=== PATIENT | male | born 1970 | race African-American/Black ===

== ENCOUNTER 2017-10-17 10:57 | Emergency (ER) | payer BC, SELFPAY ==
[2017-10-17] MEDS ORDERED: Ketorolac Tromethamine 30 MG/ML VIAL ONE (12:41)
[2017-10-17] MEDS ORDERED: Losartan 25 MG TAB PO SCH (13:00)
== END 2017-10-17 13:32 | disposition home or self-care (01) ==
LOC: ERS 10:57
DX: K02.9 Dental caries, unspecified (principal); K03.81 Cracked tooth; I10 Essential (primary) hypertension; F17.210 Nicotine dependence, cigarettes, uncomplicated
CPT/HCPCS: 96372; J1885

== ENCOUNTER 2018-06-01 09:52 | Observation (INO) | payer OTHER ==
[2018-06-01 11:57] LABS: Troponin I Less than 0.010 ng/mL (< 0.028)
[2018-06-01] MEDS ORDERED: Acetaminophen 325 MG TAB PO PRN (14:39)
[2018-06-01] MEDS ORDERED: Ondansetron PF 4 MG/2 ML Vial IVP PRN (14:39)
[2018-06-01] MEDS ORDERED: Ondansetron ODT 4 MG TAB PO PRN (14:39)
[2018-06-01 14:41] LABS: Troponin I Less than 0.010 ng/mL (< 0.028)
[2018-06-01] MEDS ORDERED: hydrALAZINE 20 MG/ML VIAL SLOW IVP PRN (14:44)
[2018-06-01] MEDS ORDERED: Nicotine 14 MG PATCH TD SCH (14:45)
[2018-06-01] MEDS ORDERED: Amlodipine 5 MG TAB PO SCH (15:00)
[2018-06-01] MEDS ORDERED: Famotidine 20 MG TAB PO SCH (21:00)
--- NOTE | 2018-06-02 06:21 | SS ---
DATE OF ADMISSION: 06/01/2018 DATE OF DISCHARGE: 06/01/2018 PRIMARY CARE PHYSICIAN: Dr. Rose at [facility]. CHIEF COMPLAINT: Chest pain, elevated blood pressure. HISTORY OF PRESENT ILLNESS: Mr. Baptiste is a pleasant 47-year-old male who has a past medical history of hypertension, he had presented to the [place] ED with some complaints of left-sided chest pain that had started earlier this morning. He had taken his blood pressure this morning and was found to be 153/111, he had taken a double dose of his morning blood pressure medication, which included losartan. At work, he had suddenly felt dizzy, lightheaded, and diaphoretic, which made him come to the [place] ED. He was then transferred to [facility] for further evaluation of his blood pressure and symptoms. It was found on arrival that his blood pressure elevated at 193/117, he was given topical nitroglycerin. It was recommended that he be worked up for his symptoms along with close monitoring and appropriate antihypertensives to lower his blood pressure to more stable level, as he was brought up to the floor for further observation, the patient insisted leaving against medical advice. Myself went into the room and spoke with him for several minutes, it was explained to him the risks of leaving against medical advice with a blood pressure that elevated. It was explained to him that this could potentially be life threatening, however, the patient was still persistent to leaving. It was recommended that the patient undergo stress test and echocardiogram, however, the patient declined services at this time. His cardiac biomarkers were found to be less than 0.010 x3, prior to leaving the floor, the patient's blood pressure was checked and it was found to be 173/116. This was also presented to the patient, however, he had declined any further treatment or workup at this time. He was provided with the AMA form which he then signed, he was provided with a prescription of Norvasc 5 mg daily and the patient proceeded to leave against medical advice. DISCHARGE DIAGNOSES: 1. Chest pain. 2. Hypertension, hypertensive urgency. CONSULTATIONS: None. PROCEDURES: None, the patient declined. DISCHARGE CONDITION: Guarded. DISPOSITION: The patient left [place] on 06/01/2018. Job ID: [id number]
[2018-06-02] MEDS ORDERED: Enoxaparin Sodium 40 MG/0.4 ML SYRINGE SC SCH (09:00)
[2018-06-02] MEDS ORDERED: Amlodipine 5 MG TAB PO SCH (09:00)
== END 2018-06-01 17:12 | disposition left against medical advice (07) ==
LOC: ERS 09:52 → 2SW 13:40
PROVIDERS: ADMIT Internal Medicine; ATTEND Internal Medicine
DX: R07.9 Chest pain, unspecified (principal); I16.0 Hypertensive urgency; I10 Essential (primary) hypertension; Z53.21 Procedure and treatment not carried out due to patient leaving prior to being seen by health care provider; Z79.899 Other long term (current) drug therapy
CPT/HCPCS: 36415; G0378

== ENCOUNTER 2018-06-04 08:43 | Emergency (ER) | payer OTHER | END 2018-06-04 09:05 | disposition home or self-care (01) | LOC: ERS 08:43 | DX: I10 Essential (primary) hypertension (principal); F17.210 Nicotine dependence, cigarettes, uncomplicated; Z79.899 Other long term (current) drug therapy | CPT/HCPCS: 99281 ==

== ENCOUNTER 2018-07-20 07:59 | Emergency (ER) | payer OTHER ==
[2018-07-20 08:50] LABS: #Basophils 0.1 thou/uL (0.0-0.2); #Eosinphils 0.3 thou/uL (0.0-0.7); #Lymphocytes 1.4 thou/uL (1.20-3.40); #Monocytes 0.5 thou/uL (0.11-0.59); #Neutrophils 2.2 thou/uL (1.40-6.50); %Basophils 1.4 % (0.0-1.0); %Eosinophils 6.7 % (0.0-10.0); %Lymphocytes 31.2 % (21.0-51.0); %Monocytes 10.5 % (0.0-10.0); %Neutrophils 50.2 % (42.0-75.0); Hemoglobin 13.5 g/dL (14.0-18.0); Mean Corpuscular HGB CONC 31.8 g/dL (32.0-36.0); Mean Corpuscular Hemoglobin 30.4 pg (27.0-31.0); Mean Corpuscular Volume 95.6 fL (78.0-98.0); Mean Platelet Volume 8.2 fL (7.4-10.4); Platelet Count 197 thou/uL (130-400); RBC Distribution Width 12.5 % (11.5-14.5); Red Blood Cell (RBC) Count 4.45 mill/uL (4.70-6.10); White Blood Cell (WBC) Count 4.4 thou/uL (4.8-10.8)
[2018-07-20 09:12] LABS: ALT (SGPT) 13 U/L (8-55); AST (SGOT) 13 U/L (5-34); Albumin 4.3 g/dL (3.5-5.0); Alkaline Phosphatase 85 U/L (40-150); Anion Gap 10 mmol/L (10-20); BUN (Urea Nitrogen) 10 mg/dL (8.9-20.6); CK (CPK) 216 U/L (30-200); Calc. Creatinine Clearance 0 mL/min (70-130); Calcium 9.3 mg/dL (7.8-10.44); Carbon Dioxide 27 mmol/L (22-29); Chloride 108 mmol/L (98-107); Estimated GFR-MDRD 68; Globulin 3.1 g/dL (2.4-3.5); Glucose 95 mg/dL (70-105); Potassium 4.6 mmol/L (3.5-5.1); Protein, Total 7.4 g/dL (6.0-8.3); Sodium 140 mmol/L (136-145)
[2018-07-20] MEDS ORDERED: Losartan 25 MG TAB PO SCH (10:00)
== END 2018-07-20 11:50 | disposition home or self-care (01) ==
LOC: ERS 07:59
DX: I10 Essential (primary) hypertension (principal); F17.210 Nicotine dependence, cigarettes, uncomplicated; Z79.899 Other long term (current) drug therapy
CPT/HCPCS: 36415; 80053; 82550; 84484; 85025; 93005; 94760

== ENCOUNTER 2018-09-06 13:31 | Day surgery (SDC) | payer OTHER ==
[2018-09-05 12:31] VITALS: BMI 28.8
[~2018-09-06 13:31] MED LIST: Lidocaine 1% PF 5 ML VIAL ONE; Ondansetron PF 4 MG/2 ML Vial ONE; PROPOFOL 200 MG/20 ML VIAL ONE; Succinylcholine Chloride 20 MG/ML 10 ml SYRINGE FS ONE; ePHEDrine 50 MG/ML VIAL ONE
[2018-09-06] MEDS ORDERED: Oxymetazoline HCl 0.05% ( 15 ML ) ONE (14:06)
[2018-09-06] MEDS ORDERED: Labetalol HCl 100 MG/20 ML VIAL ONE (14:13)
[2018-09-06] MEDS ORDERED: Bacitracin Zinc Ointment 30 gm TUBE ONE (14:41)
[2018-09-06] MEDS ORDERED: Lidocaine 1% w/Epinephrine 1:100K 20 ML VIAL ONE (14:41)
[2018-09-06] MEDS ORDERED: Oxymetazoline HCl 0.05% (30 ML BOT) ONE (14:42)
[2018-09-06] MEDS ORDERED: Fentanyl 100 MCG/2 ML VIAL ONE ×3 (15:04→17:11)
[2018-09-06] MEDS ORDERED: methylPREDNISolone Sod Succ 40 MG VIAL ONE (15:06)
--- NOTE | 2018-09-06 15:58 | EKG ---
Test Reason : PREOP Blood Pressure : / mmHG Vent. Rate : 057 BPM Atrial Rate : 057 BPM P-R Int : 154 ms QRS Dur : 090 ms QT Int : 396 ms P-R-T Axes : 070 -35 026 degrees QTc Int : 385 ms Sinus bradycardia Left axis deviation Nonspecific T wave abnormality Abnormal ECG Confirmed by ROXANA WALLACE ([id number]) on 09/06/2018 3:57:49 PM Referred By: JAYDEN Confirmed By:ROXANA WALLACE
[2018-09-06] MEDS ORDERED: hydrALAZINE 20 MG/ML VIAL ONE (16:47)
[2018-09-06] MEDS ORDERED: HYDROcodone/Acetaminophen 5/325 mg Tablet ONE (17:58)
--- NOTE | 2018-09-07 13:03 | OP ---
DATE OF PROCEDURE: 09/06/2018 PREOPERATIVE DIAGNOSES: 1. Profound septal deformity. 2. Left septal spur. 3. Hypertrophic inferior turbinates. POSTOPERATIVE DIAGNOSES: 1. Profound septal deformity. 2. Left septal spur. 3. Hypertrophic inferior turbinates. PROCEDURES PERFORMED: 1. Septoplasty. 2. Bilateral nasal endoscopy with submucosal resection of inferior turbinates. DESCRIPTION OF PROCEDURE: SEPTOPLASTY: After local anesthesia was infiltrated into the submucoperichondrial plane, a standard [place] incision was made with a #15 blade down to the level of the septal cartilage. The caudal elevator was used to elevate the mucoperichondrium from the underlying cartilage. We then proceeded beyond the bony cartilaginous junction and elevated the bony periosteum as well. Great attention was paid to the spur to prevent rent formation in the septal flap. A transcartilaginous incision was then made, while preserving an adequate dorsal and caudal cartilaginous strut for tip support. The deformed cartilage was removed and disarticulated from the bony cartilaginous junction and maxillary crest. This was placed in saline and would later be crushed and returned to the mucoperichondrial envelope. We then elevated the contralateral periosteum from the bony cartilaginous region and removed the deformed portions of the bone and bony spurs. The cartilage was then crushed and placed back into the mucoperichondrial envelope and the mucosa was re-approximated with a quilting stitch composed of rapidly absorbent gut suture. The [place] incision was also closed with interrupted gut suture. At the completion of the case, Govea splints were placed and suture secured to the caudal septum. BILATERAL NASAL ENDOSCOPY WITH SUBMUCOSAL RESECTION OF INFERIOR TURBINATES: After consent was obtained, the patient was identified, brought to the operating room, and placed on the operating room table in the supine position. Consent was obtained, notifying the patient of the possibility of additional infections, bleeding, brain injury, and eye/orbital injury. The patient was placed on the operating room table, and general endotracheal anesthesia and intravenous access was obtained. The patient was then positioned, prepped and draped for endoscopic sinus surgery. Nasal preparation included trimming nasal vestibular hairs and spraying in topical Afrin. We then placed Afrin topical solution on nasal pledgets and strategically located them intranasally. The perinasal mucosa was injected with 1% lidocaine with 1:100,000 epinephrine in the submucoperichondrial plane of the septum, lateral nasal wall, and anterior to the uncinate. The patient was then prepped and draped in a sterile fashion and positioned for endoscopic sinus surgery. With the 0-degree endoscope, the patient underwent systematic nasal endoscopy. There were no suspicious internasal masses or lesions identified. We then focused our attention to the osteomeatal complex region under the middle turbinate. The inferior turbinates were visualized with a 0 degree endoscope and outfractured with a Jen elevator. The inferior medial aspect was cauterized with the electrocautery. Hemostasis was obtained . After adequate airway was established, we turned our attention to the contralateral side and used a similar procedure. Again, a Jen elevator was used to outfracture inferior turbinates under endoscopic visualization. With a suction cautery, the free inferior medial aspect was cauterized under direct visualization along the length of the inferior turbinate. At this point, we then turned our attention to the contralateral side and proceeded with endoscopic sinus surgery. At the completion of the case, Rice keel splints were placed in the ethmoid cavities after the ethmoidectomy. There were no complications. The patient tolerated the procedure well and was discharged to the recovery room in stable condition prior to return to the preoperative day stay with ultimate discharge home. Prescriptions for pain medication and antibiotics were provided. The patient received intramuscular Depo-Medrol during the case. Job ID: [id number]
== END 2018-09-06 18:44 | disposition home or self-care (01) ==
LOC: SDC 13:31
PROVIDERS: ATTEND Specialist
PROC: 09SM0ZZ Reposition Nasal Septum, Open Approach (ICD-10-PCS; principal; 2018-09-06)
PROC: 09SL8ZZ Reposition Nasal Turbinate, Via Natural or Artificial Opening Endoscopic (ICD-10-PCS; principal; 2018-09-06)
DX: J34.2 Deviated nasal septum (principal); J34.3 Hypertrophy of nasal turbinates; J34.89 Other specified disorders of nose and nasal sinuses; I10 Essential (primary) hypertension; F17.200 Nicotine dependence, unspecified, uncomplicated; Z87.81 Personal history of (healed) traumatic fracture; Z79.899 Other long term (current) drug therapy; Z88.8 Allergy status to other drugs, medicaments and biological substances
CPT/HCPCS: 93005; 93010; J0360; J2001; J2405; J2704; J2920; J3010; J3490

== ENCOUNTER 2018-11-15 08:57 | Day surgery (SDC) | payer OTHER ==
[2018-11-14 09:33] VITALS: BMI 25.9
[2018-11-15] MEDS ORDERED: Famotidine/PF 20 mg/2ml Vial ONE (10:37)
[2018-11-15] MEDS ORDERED: Fentanyl 100 MCG/2 ML VIAL ONE ×2 (10:37→11:34)
[2018-11-15] MEDS ORDERED: Ferric Subsulfate 8 ML BOT ONE (11:10)
[2018-11-15] MEDS ORDERED: Metoprolol Tartrate 5 MG/5 ML VIAL ONE (11:34)
[2018-11-15] MEDS ORDERED: HYDROmorphone 2 MG/ML VIAL ONE (11:57)
[2018-11-15] MEDS ORDERED: Morphine 2 MG/ML SYRINGE ONE (13:24)
--- NOTE | 2018-11-15 15:15 | OP ---
DATE OF PROCEDURE: 11/15/2018 PREOPERATIVE DIAGNOSES: Obstructive tonsillar hypertrophy, obstructive uvular hypertrophy. POSTOPERATIVE DIAGNOSES: Obstructive tonsillar hypertrophy, obstructive uvular hypertrophy. PROCEDURE PERFORMED: Tonsillectomy over 12 and uvulectomy. DESCRIPTION OF PROCEDURE: After consent was obtained, the patient was identified, brought to the operating room, and placed on the operating table in the supine position. General endotracheal anesthesia and intravenous access was obtained and we proceeded with positioning the patient for oropharyngeal surgery. Oropharyngeal exposure was obtained with a Maricarmen-Milton mouth gag after a head drape was placed and secured with a towel clip. The Maricarmen-Milton mouth gag was then suspended from the Hunter tray and palatal elevation was achieved with a red rubber catheter. The right tonsil was addressed first. We used a curved Allis to grasp the tonsil and retract it medially as an anterior pillar incision was made with a #12 blade. The retrotonsillar fascial plane was then established and blunt dissection was performed with the suction cautery. Blood vessels were anticipated, identified, and cauterized as they were encountered. Ultimately, dissection was carried to the posterior tonsillar pillar mucosa which was incised hemostatically, as well as the base of tongue connection. The tonsil was then passed off as a specimen and bleeding points within the tonsillar bed were cauterized under direct visualization. We subsequently turned our attention to the contralateral side, where using a similar technique, a near identical procedure was performed. Again, the tonsil was grasped and retracted medially with a curved Allis as an anterior pillar incision was made with a #12 blade. The retrotonsillar fascial plane was established and while the anterior pillar was retracted medially, the hemostatic blunt dissection of the tonsil with a suction cautery was performed with blood vessels anticipated, identified, and cauterized as they were encountered. Again, dissection continued to the base of tongue and posterior tonsillar pillar mucosa which was incised in a hemostatic fashion. The tonsillar beds were then carefully inspected and bleeding points were identified and cauterized with a suction cautery. After this portion of the procedure, hemostasis was completely obtained. The patient's oral cavity was copiously irrigated with iced saline and subsequently suctioned. We then used the red rubber catheter to suction the gastric contents and the patient was subsequently aroused, awakened, and extubated without difficulty and transported to the recovery room in stable condition. There were no complications. Then, following the tonsils being removed, vertical incisions were made into the soft palate on either side of the uvula and the crescentic portion of palatal and pharyngeal mucosa and associated muscle was removed. We then transected the uvula at its midpoint and reapproximated the mucosa with absorbable suture. The patient was awakened and taken to recovery room in stable condition. Job ID: [id number]
[2018-11-15] MEDS ORDERED: Dexamethasone 20 MG/5 ML VIAL ONE (17:14)
[2018-11-15] MEDS ORDERED: Ondansetron PF 4 MG/2 ML Vial ONE (17:14)
[2018-11-15] MEDS ORDERED: Succinylcholine Chloride 20 MG/ML 10 ml SYRINGE FS ONE (17:14)
[2018-11-15] MEDS ORDERED: PROPOFOL 200 MG/20 ML VIAL ONE (17:14)
[2018-11-15] MEDS ORDERED: Lidocaine 1% PF 5 ML VIAL ONE (17:14)
--- NOTE | 2018-11-16 07:02 | EKG ---
Test Reason : PREOP Blood Pressure : / mmHG Vent. Rate : 079 BPM Atrial Rate : 079 BPM P-R Int : 142 ms QRS Dur : 080 ms QT Int : 374 ms P-R-T Axes : 079 -42 052 degrees QTc Int : 428 ms Normal sinus rhythm with sinus arrhythmia Left axis deviation Abnormal ECG When compared with ECG of 06-SEP-2018 14:45, Nonspecific T wave abnormality no longer evident in Lateral leads Confirmed by DR. Erica BLACKMON ([id number]) on 11/16/2018 7:02:13 AM Referred By: JAYDEN Confirmed By:DR. Erica BLACKMON
== END 2018-11-15 14:35 | disposition home or self-care (01) ==
LOC: SDC 08:57
PROVIDERS: ATTEND Specialist
PROC: 0CTNXZZ Resection of Uvula, External Approach (ICD-10-PCS; principal; 2018-11-15)
PROC: 0CTPXZZ Resection of Tonsils, External Approach (ICD-10-PCS; principal; 2018-11-15)
DX: J35.1 Hypertrophy of tonsils (principal); K13.79 Other lesions of oral mucosa; R06.81 Apnea, not elsewhere classified
CPT/HCPCS: 88304; 93005; 93010; J0131; J1100; J1170; J2001; J2270; J2405; J2704; J3010; S0028

== ENCOUNTER 2019-02-26 22:18 | Emergency (ER) | payer OTHER, SELFPAY ==
[~2019-02-26 22:18] MED LIST changes: +Iopamidol 370 76% 100 ML VIAL ONE; -Lidocaine 1% PF 5 ML VIAL ONE; -Ondansetron PF 4 MG/2 ML Vial ONE; -PROPOFOL 200 MG/20 ML VIAL ONE; -Succinylcholine Chloride 20 MG/ML 10 ml SYRINGE FS ONE; -ePHEDrine 50 MG/ML VIAL ONE
[2019-02-26 22:53] LABS: #Eosinphils 0.2 thou/uL (0.0-0.7); #Lymphocytes 1.3 thou/uL (1.20-3.40); #Monocytes 0.5 thou/uL (0.11-0.59); %Basophils 0.1 % (0.0-1.0); %Eosinophils 2.2 % (0.0-10.0); %Lymphocytes 11.6 % (21.0-51.0); %Monocytes 4.9 % (0.0-10.0); %Neutrophils 81.3 % (42.0-75.0); Hemoglobin 12.7 g/dL (14.0-18.0); Mean Corpuscular HGB CONC 34.2 g/dL (32.0-36.0); Mean Corpuscular Hemoglobin 32.5 pg (27.0-31.0); Mean Corpuscular Volume 95.2 fL (78.0-98.0); Mean Platelet Volume 9.4 fL (7.4-10.4); Platelet Count 377 thou/uL (130-400); RBC Distribution Width 14.9 % (11.5-14.5); Red Blood Cell (RBC) Count 3.92 mill/uL (4.70-6.10); White Blood Cell (WBC) Count 11.1 thou/uL (4.8-10.8)
[2019-02-26] MEDS ORDERED: Morphine 4 MG/ML VIAL ONE (23:04)
[2019-02-26] MEDS ORDERED: Ketorolac Tromethamine 30 MG/ML VIAL ONE (23:04)
--- NOTE | 2019-02-26 23:34 | CT ---
CT Abdomen Pelvis Trauma History: Trauma. Abdominal pain. Comparison: CT abdomen and pelvis February 21, 2019 Findings: Small pleural effusions. Mild bibasilar atelectasis. Small volume pneumomediastinum. There is small volume pneumoperitoneum as well as subcutaneous emphysema along the superficial soft tissues. Drainage catheter is in place along the antimesenteric side sigmoid colon with much improved abscess without significant fluid remaining. Continues to be fat stranding around the sigmoid colon. Similar bilateral small nonobstructive renal calculi. Evaluation for solid organ injury is limited du e to the recent postoperative findings. Hypodensity interpolar left kidney suggestive of a cyst. Aortic contour is nonaneurysmal. Osseous pelvis is intact. No fracture of the lumbar spine or sacrum. No acute solid organ injury of the abdomen. Impression: 1. Recent postoperative findings with interval drain placement on the antimesenteric side of the colo n with resolved abscess. 2. No definite evidence of acute traumatic abnormality of the abdomen and pelvis although evaluation is limited due to the recent postoperative findings.
[2019-02-27 00:15] LABS: Chloride 105 mmol/L (98-107); Potassium 3.9 mmol/L (3.5-5.1); Sodium 140 mmol/L (136-145)
[2019-02-27 00:16] LABS: Calcium 8.7 mg/dL (7.8-10.44); Glucose 100 mg/dL (70-105)
[2019-02-27 00:17] LABS: Globulin 3.1 g/dL (2.4-3.5); Protein, Total 6.1 g/dL (6.0-8.3)
[2019-02-27 00:18] LABS: Anion Gap 14 mmol/L (10-20); Bilirubin, Total 0.3 mg/dL (0.2-1.2); Carbon Dioxide 25 mmol/L (22-29)
[2019-02-27 00:19] LABS: Alkaline Phosphatase 61 U/L (40-150)
[2019-02-27 00:20] LABS: Calc. Creatinine Clearance 0 mL/min (70-130); Estimated GFR-MDRD 69
[2019-02-27 00:21] LABS: BUN (Urea Nitrogen) 6 mg/dL (8.9-20.6)
[2019-02-27 00:22] LABS: ALT (SGPT) 11 U/L (8-55); AST (SGOT) 14 U/L (5-34)
== END 2019-02-27 00:26 | disposition home or self-care (01) ==
LOC: ERS 22:18
DX: S30.1XXA Contusion of abdominal wall, initial encounter (principal); I10 Essential (primary) hypertension; F32.9 Major depressive disorder, single episode, unspecified; F17.210 Nicotine dependence, cigarettes, uncomplicated; Z79.899 Other long term (current) drug therapy; Z98.890 Other specified postprocedural states; V89.2XXA Person injured in unspecified motor-vehicle accident, traffic, initial encounter
CPT/HCPCS: 36415; 74177; 80053; 85025; 96361; 96374; 96375; J1885; J2270; Q9967

== ENCOUNTER 2019-03-03 19:41 | Observation (INO) | payer SELFPAY ==
[2019-03-03] MEDS ORDERED: Fentanyl 100 MCG/2 ML VIAL ONE (20:50)
[2019-03-03] MEDS ORDERED: Labetalol HCl 100 MG/20 ML VIAL ONE (22:02)
[2019-03-03] MEDS ORDERED: Ondansetron ODT 4 MG TAB PO PRN (22:44)
[2019-03-03] MEDS ORDERED: Morphine 4 MG/ML VIAL SLOW IVP PRN (22:44)
[2019-03-03] MEDS ORDERED: Ondansetron PF 4 MG/2 ML Vial IVP PRN (22:44)
[2019-03-03] MEDS ORDERED: Ketorolac Tromethamine 30 MG/ML VIAL IVP PRN (22:46)
[2019-03-03] MEDS ORDERED: Acetaminophen 1,000 MG in Premix Bag 1 BAG IVPB PRN (22:46)
[2019-03-03] MEDS ORDERED: Ketorolac Tromethamine 30 MG/ML VIAL IVP SCH (23:00)
[2019-03-03] MEDS ORDERED: Acetaminophen 1,000 MG in Premix Bag 1 BAG IVPB SCH (23:00)
[2019-03-04 00:16] VITALS: BMI 23.6
[2019-03-04] MEDS: Acetaminophen 1,000 MG in Premix Bag 1 BAG IVPB SCH ×5 (01:11→23:25)
[2019-03-04] MEDS: D5 1/2 NS w/20 mEq KCL 1,000 ML IV SCH ×4 (01:12→23:24)
[2019-03-04] MEDS: hydrALAZINE 20 MG/ML VIAL SLOW IVP PRN ×2 (01:53→16:27)
[2019-03-04] MEDS: Piperacillin/Tazobactam 4.5 GM in Sodium Chloride 0.9% 100 ML IVPB SCH ×5 (01:54→23:25)
[2019-03-04] MEDS: Morphine 2 MG/ML SYRINGE SLOW IVP PRN ×2 (02:02→10:41)
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
[2019-03-04 04:46] LABS: #Eosinphils 0.1 thou/uL (0.0-0.7); #Lymphocytes 1.5 thou/uL (1.20-3.40); #Monocytes 0.6 thou/uL (0.11-0.59); #Neutrophils 5.7 thou/uL (1.40-6.50); %Basophils 0.1 % (0.0-1.0); %Eosinophils 0.7 % (0.0-10.0); %Lymphocytes 19.2 % (21.0-51.0); %Monocytes 7.8 % (0.0-10.0); %Neutrophils 72.1 % (42.0-75.0); Hemoglobin 11.8 g/dL (14.0-18.0); Mean Corpuscular Hemoglobin 31.6 pg (27.0-31.0); Mean Corpuscular Volume 95.7 fL (78.0-98.0); Mean Platelet Volume 7.3 fL (7.4-10.4); Platelet Count 390 thou/uL (130-400); RBC Distribution Width 13.3 % (11.5-14.5); Red Blood Cell (RBC) Count 3.75 mill/uL (4.70-6.10); White Blood Cell (WBC) Count 7.9 thou/uL (4.8-10.8)
[2019-03-04 04:55] LABS: ALT (SGPT) 16 U/L (8-55); AST (SGOT) 10 U/L (5-34); Albumin 3.4 g/dL (3.5-5.0); Alkaline Phosphatase 60 U/L (40-150); Anion Gap 12 mmol/L (10-20); BUN (Urea Nitrogen) 9 mg/dL (8.9-20.6); Bilirubin, Total 0.4 mg/dL (0.2-1.2); Calc. Creatinine Clearance 78 mL/min (70-130); Calcium 8.8 mg/dL (7.8-10.44); Carbon Dioxide 24 mmol/L (22-29); Chloride 106 mmol/L (98-107); Estimated GFR-MDRD 86; Glucose 120 mg/dL (70-105); Protein, Total 6.4 g/dL (6.0-8.3); Sodium 139 mmol/L (136-145)
[2019-03-04 05:11] LABS: Potassium 2.8 mmol/L (3.5-5.1)
[2019-03-04] MEDS ORDERED: Potassium Chloride 20 MEQ TAB PO SCH (05:45)
[2019-03-04] MEDS: Carvedilol 6.25 MG TAB PO SCH ×2 (06:16→20:25)
[2019-03-04] MEDS: Famotidine/PF 20 mg/2ml Vial SLOW IVP SCH ×2 (07:36→20:25)
--- NOTE | 2019-03-04 15:01 | PRG ---
DATE OF SERVICE: 03/04/2019 SUBJECTIVE: Devon Baptiste is doing well today. He does not have a fever. His white count is normal at 7.9. It was normal on admission. His hemoglobin is 11.8. He feels somewhat better. He is walking the hallways with a walking program. OBJECTIVE: LUNGS: Clear to auscultation. CARDIAC: Regular rate and rhythm. No murmur or gallop. ABDOMEN: Soft, mild tenderness in the left lower quadrant, much improved relative to yesterday. Mild guarding. Remainder of abdomen is soft and nondistended. EXTREMITIES: Unremarkable. ASSESSMENT/PLAN: Persistent diverticulitis after removal of a drain. He was on oral antibiotics, Augmentin, and metronidazole at home. He is on Zosyn today. We will advance him to clear liquids. Dr. Regalado will assume his care tomorrow. Job ID: [id number]
[2019-03-04 19:07] LABS: Anion Gap 13 mmol/L (10-20); BUN (Urea Nitrogen) 6 mg/dL (8.9-20.6); Calc. Creatinine Clearance 73 mL/min (70-130); Calcium 9.2 mg/dL (7.8-10.44); Carbon Dioxide 25 mmol/L (22-29); Chloride 106 mmol/L (98-107); Estimated GFR-MDRD 80; Glucose 81 mg/dL (70-105); Sodium 140 mmol/L (136-145)
[2019-03-04] MEDS: Enoxaparin Sodium 40 MG/0.4 ML SYRINGE SC SCH (20:26)
[2019-03-05] MEDS: Piperacillin/Tazobactam 4.5 GM in Sodium Chloride 0.9% 100 ML IVPB SCH ×4 (05:14→23:13)
[2019-03-05] MEDS: Carvedilol 6.25 MG TAB PO SCH ×2 (08:23→20:18)
[2019-03-05] MEDS: Famotidine/PF 20 mg/2ml Vial SLOW IVP SCH ×2 (08:25→20:18)
[2019-03-05] MEDS: D5 1/2 NS w/20 mEq KCL 1,000 ML IV SCH ×3 (08:27→18:17)
[2019-03-05 08:49] LABS: Anion Gap 10 mmol/L (10-20); BUN (Urea Nitrogen) 4 mg/dL (8.9-20.6); Calc. Creatinine Clearance 71 mL/min (70-130); Calcium 8.9 mg/dL (7.8-10.44); Carbon Dioxide 24 mmol/L (22-29); Chloride 108 mmol/L (98-107); Estimated GFR-MDRD 78; Glucose 111 mg/dL (70-105); Potassium 3.9 mmol/L (3.5-5.1); Sodium 138 mmol/L (136-145)
--- NOTE | 2019-03-05 15:31 | PDOC.GSPN ---
Surgery Progress Note: Subj - Subjective Narrative: Patient feels good today. He is tolerating his full liquid diet. He is passing gas and has had several bowel movements. No nausea or vomiting. No pain at rest , although he is still a little sore when I press on his abdomen. He does not exhibit any rigidity rebound or guarding. The tenderness is less than during his last admission. He is afebrile with normal vital signs. I questioned him specifically about the antibiotics he was taking at home, since I received a phone call from his pharmacy on Monday asking for clarification on the prescription I given him at the time of his discharge. He states that he didn't have money to fill his discharge when he went home, so he was taking some amoxicillin that he had left over thinking it was the same thing as the Augmentin. He didn't actually fill the Augmentin and Flagyl until Monday. Assessment/plan: Diverticulitis with recrudescence of symptoms, likely due to interruption of antibiotic therapy rather than true treatment failure. I'm going to continue the IV antibiotics overnight and repeat the CT scan with IV and oral contrast tomorrow. If this shows improvement, he will likely be discharged home on Augmentin and Flagyl, which cover the bacteria grown from his intraoperative culture.. Surgery Progress Note: Obj - Vital signs Vital signs: Vital Signs - Most Recent Temp Pulse Resp BP Pulse Ox 97.5 F L 67 20 167/111 H 98 03/05/19 11:43 03/05/19 11:43 03/05/19 11:43 03/05/19 11:43 03/05/19 11:43 Surgery Progress Note: Results - Labs Result Diagrams: 03/04/19 04:12 03/05/19 08:16 Lab results: Laboratory Results - last 24 hr 03/05/19 08:16 Sodium 138 Potassium 3.9 Chloride 108 H Carbon Dioxide 24 Anion Gap 10 BUN 4 L Creatinine 1.20 Estimated GFR (MDRD) 78 Glucose 111 H Calcium 8.9
[2019-03-05] MEDS: Enoxaparin Sodium 40 MG/0.4 ML SYRINGE SC SCH (20:18)
[2019-03-05] MEDS: Morphine 2 MG/ML SYRINGE SLOW IVP PRN ×2 (20:24→22:06)
[2019-03-06] MEDS: D5 1/2 NS w/20 mEq KCL 1,000 ML IV SCH ×2 (01:39→11:55)
[2019-03-06] MEDS: Piperacillin/Tazobactam 4.5 GM in Sodium Chloride 0.9% 100 ML IVPB SCH ×2 (05:04→11:54)
[2019-03-06 05:41] LABS: #Eosinphils 0.1 thou/uL (0.0-0.7); #Lymphocytes 1.6 thou/uL (1.20-3.40); #Monocytes 0.5 thou/uL (0.11-0.59); #Neutrophils 3.6 thou/uL (1.40-6.50); %Basophils 0.6 % (0.0-1.0); %Eosinophils 1.6 % (0.0-10.0); %Lymphocytes 27.4 % (21.0-51.0); %Monocytes 9.1 % (0.0-10.0); %Neutrophils 61.2 % (42.0-75.0); Hemoglobin 10.7 g/dL (14.0-18.0); Mean Corpuscular HGB CONC 32.7 g/dL (32.0-36.0); Mean Corpuscular Hemoglobin 31.5 pg (27.0-31.0); Mean Corpuscular Volume 96.3 fL (78.0-98.0); Mean Platelet Volume 7.5 fL (7.4-10.4); Platelet Count 354 thou/uL (130-400); RBC Distribution Width 13.2 % (11.5-14.5); White Blood Cell (WBC) Count 5.9 thou/uL (4.8-10.8)
[2019-03-06 05:58] LABS: ALT (SGPT) 9 U/L (8-55); AST (SGOT) 7 U/L (5-34); Albumin 2.9 g/dL (3.5-5.0); Alkaline Phosphatase 49 U/L (40-150); Anion Gap 10 mmol/L (10-20); BUN (Urea Nitrogen) 4 mg/dL (8.9-20.6); Bilirubin, Total 0.2 mg/dL (0.2-1.2); Calc. Creatinine Clearance 74 mL/min (70-130); Calcium 8.3 mg/dL (7.8-10.44); Carbon Dioxide 22 mmol/L (22-29); Chloride 111 mmol/L (98-107); Estimated GFR-MDRD 81; Globulin 2.6 g/dL (2.4-3.5); Glucose 105 mg/dL (70-105); Potassium 3.6 mmol/L (3.5-5.1); Protein, Total 5.5 g/dL (6.0-8.3); Sodium 139 mmol/L (136-145)
[2019-03-06] MEDS: Famotidine/PF 20 mg/2ml Vial SLOW IVP SCH (07:53)
[2019-03-06] MEDS: Carvedilol 6.25 MG TAB PO SCH (07:53)
[2019-03-06] MEDS: Morphine 2 MG/ML SYRINGE SLOW IVP PRN (07:59)
--- NOTE | 2019-03-06 11:34 | CT ---
CT Abdomen Pelvis W Con: 03/06/2019 9:00 AM CLINICAL INFORMATION: Diverticular abscess status post drainage COMPARISON: 03/03/2019 TECHNIQUE: Multiple contiguous axial images were obtained and a CT of the abdomen and pelvis with IV contrast. Oral contrast was administered. Coronal reformats were performed. FINDINGS: Lower Chest: Bibasilar atelectasis Abdomen: Liver: within normal limits. Bile Ducts: Normal caliber. Gallbladder: No calcified gallstones. Normal caliber wall. Pancreas: within normal limits. Spleen: within normal limits. Adrenals: within normal limits. Kidneys: Bilateral punctate nonobstructing renal calcifications Pelvis: Reproductive Organs: No pelvic masses. Ureters: within normal limits. Bladder: within normal limits. Peritoneum: The previously seen fluid collection in the lower abdomen/pelvis is much smaller in size and the exam from 3 days ago currently measuring 2.0 x 2.1 x 1.8 cm in size. This fluid collection is not filled with the enteric contrast but likely communicates with a diverticulum visualized emanat ing from the anterior aspect of the sigmoid colon. Bowel: Normal caliber. Mesentery and Retroperitoneum: No enlarged mesenteric or retroperitoneal lymph nodes. Vessels: Normal. Abdominal Wall: within normal limits. Bones: Within normal limits IMPRESSION: Small fluid collection in the lower abdomen likely represents a small contained diverticular abscess. This likely communicates with the sigmoid colon given the significant decrease in size over 3 days.
[2019-03-06 11:35] VITALS: TEMP 98.6
[2019-03-06] MEDS: hydrALAZINE 20 MG/ML VIAL SLOW IVP PRN (11:58)
[2019-03-06 15:13] VITALS: BP 162/105
== END 2019-03-06 14:51 | disposition home or self-care (01) ==
LOC: ERS 19:41 → SJJU 21:15
PROVIDERS: ADMIT Specialist; ATTEND Specialist
DX: K57.20 Diverticulitis of large intestine with perforation and abscess without bleeding (principal); I10 Essential (primary) hypertension; F17.210 Nicotine dependence, cigarettes, uncomplicated; F32.9 Major depressive disorder, single episode, unspecified; Z79.2 Long term (current) use of antibiotics; Z79.899 Other long term (current) drug therapy; Z88.8 Allergy status to other drugs, medicaments and biological substances; Z98.890 Other specified postprocedural states
CPT/HCPCS: 36415; 36416; 74177; 80048; 80053; 85025; 96361; 96365; 96366; 96372; 96374; 96375; 96376; G0378; J0131; J0360; J1650; J1885; J2270; J2543; J3010; J3490; S0028

== ENCOUNTER 2019-03-19 17:06 | Inpatient (IN) | payer SELFPAY ==
[~2019-03-19 17:06] MED LIST changes: +ISOVUE-370 76%-LOCM 1 ML ONE; -Iopamidol 370 76% 100 ML VIAL ONE
[2019-03-19] MEDS ORDERED: Morphine 2 MG/ML SYRINGE SLOW IVP PRN (17:38)
[2019-03-19 17:39] VITALS: BMI 24.9
[2019-03-19] MEDS ORDERED: Pantoprazole 40 MG VIAL IVP SCH (17:45)
[2019-03-19] MEDS ORDERED: Acetaminophen 1,000 MG in Premix Bag 1 BAG IVPB SCH (18:00)
[2019-03-19] MEDS: D5 1/2 NS w/20 mEq KCL 1,000 ML IV SCH (18:40)
[2019-03-19] MEDS: Piperacillin/Tazobactam 3.375 GM in Sodium Chloride 0.9% 100 ML IVPB SCH (18:44)
[2019-03-19 19:01] LABS: #Eosinphils 0.3 thou/uL (0.0-0.7); #Lymphocytes 1.7 thou/uL (1.20-3.40); #Monocytes 0.5 thou/uL (0.11-0.59); #Neutrophils 4.3 thou/uL (1.40-6.50); %Basophils 0.5 % (0.0-1.0); %Eosinophils 4.1 % (0.0-10.0); %Lymphocytes 25.1 % (21.0-51.0); %Neutrophils 63.4 % (42.0-75.0); Hemoglobin 11.6 g/dL (14.0-18.0); Mean Corpuscular HGB CONC 32.7 g/dL (32.0-36.0); Mean Corpuscular Hemoglobin 31.6 pg (27.0-31.0); Mean Corpuscular Volume 96.5 fL (78.0-98.0); Mean Platelet Volume 7.9 fL (7.4-10.4); Platelet Count 252 thou/uL (130-400); Red Blood Cell (RBC) Count 3.67 mill/uL (4.70-6.10); White Blood Cell (WBC) Count 6.7 thou/uL (4.8-10.8)
[2019-03-19 19:22] LABS: ALT (SGPT) 8 U/L (8-55); AST (SGOT) 10 U/L (5-34); Alkaline Phosphatase 69 U/L (40-150); Anion Gap 13 mmol/L (10-20); BUN (Urea Nitrogen) 12 mg/dL (8.9-20.6); Bilirubin, Total 0.5 mg/dL (0.2-1.2); Calc. Creatinine Clearance 63 mL/min (70-130); Calcium 9.2 mg/dL (7.8-10.44); Carbon Dioxide 23 mmol/L (22-29); Chloride 105 mmol/L (98-107); Estimated GFR-MDRD 63; Globulin 3.2 g/dL (2.4-3.5); Glucose 106 mg/dL (70-105); Potassium 3.4 mmol/L (3.5-5.1); Protein, Total 7.2 g/dL (6.0-8.3); Sodium 138 mmol/L (136-145)
--- NOTE | 2019-03-19 20:30 | CT ---
CT Abdomen Pelvis W Con: 03/19/2019 5:39 PM CLINICAL INFORMATION: Abscess in the colon. History of diverticulitis COMPARISON: 03/06/2019 TECHNIQUE: Multiple contiguous axial images were obtained and a CT of the abdomen and pelvis with IV contrast. Oral contrast was administered. Coronal and sagittal reformats were performed. FINDINGS: Lower Chest: within normal limits. Abdomen: Liver: within normal limits. Bile Ducts: Normal caliber. Gallbladder: No calcified gallstones. Normal caliber wall. Pancreas: within normal limits. Spleen: within normal limits. Adrenals: within normal limits. Kidneys: Punctate 1 to 2 mm bilateral nonobstructing renal calcifications. Pelvis: Reproductive Organs: No pelvic masses. Ureters: within normal limits. Bladder: within normal limits. Peritoneum: No free air or free fluid. Bowel: Inflammatory changes seen surrounding the sigmoid colon without adjacent focal fluid collectio n. Multiple diverticula are in the sigmoid colon. The small bowel is normal in caliber. Normal appendix. Mesentery and Retroperitoneum: No enlarged mesenteric or retroperitoneal lymph nodes. Vessels: Normal. Abdominal Wall: within normal limits. Bones: Within normal limits IMPRESSION: 1. Acute diverticulitis 2. Nonobstructing kidney stones
[2019-03-19] MEDS: cloNIDine 0.1 MG TAB PO SCH (21:15)
[2019-03-19] MEDS: Carvedilol 25 MG TAB PO SCH (21:15)
[2019-03-20] MEDS: Piperacillin/Tazobactam 3.375 GM in Sodium Chloride 0.9% 100 ML IVPB SCH ×4 (00:46→16:57)
[2019-03-20] MEDS ORDERED: Acetaminophen 1,000 MG in Premix Bag 1 BAG IVPB SCH ×3 (03:00→09:00)
[2019-03-20] MEDS: D5 1/2 NS w/20 mEq KCL 1,000 ML IV SCH ×2 (04:20→16:56)
[2019-03-20] MEDS ORDERED: Acetaminophen 650 MG Suppository PR PRN (07:41)
[2019-03-20] MEDS ORDERED: Acetaminophen 325 MG Suppository PR PRN (07:41)
[2019-03-20] MEDS ORDERED: Acetaminophen 325 MG TAB PO PRN (07:41)
[2019-03-20] MEDS ORDERED: traMADol HCl 50 MG TAB PO PRN (07:42)
[2019-03-20] MEDS: Amlodipine 10 MG TAB PO SCH (08:48)
[2019-03-20] MEDS: Carvedilol 25 MG TAB PO SCH ×2 (08:49→21:56)
[2019-03-20] MEDS: cloNIDine 0.1 MG TAB PO SCH ×2 (08:49→21:56)
[2019-03-20] MEDS: Losartan 25 MG TAB PO SCH (08:49)
[2019-03-20] MEDS: Pantoprazole 40 MG VIAL IVP SCH (08:50)
[2019-03-20] MEDS ORDERED: Fentanyl 100 MCG/2 ML VIAL ONE (09:26)
[2019-03-20] MEDS ORDERED: Midazolam HCl 2 mg/2 ml Vial ONE (09:26)
[2019-03-20] MEDS ORDERED: Morphine 2 MG/ML SYRINGE SLOW IVP PRN (11:04)
[2019-03-20] MEDS: Acetaminophen 325 MG TAB PO PRN ×2 (11:41→16:58)
[2019-03-20] MEDS: traMADol HCl 50 MG TAB PO PRN ×2 (11:42→16:58)
--- NOTE | 2019-03-20 12:07 | PDOC.GSPN ---
Surgery Progress Note: Subj - Subjective Narrative: Patient admitted yesterday for recurrent diverticulitis. This pain had basically resolved when he was on IV antibiotics, then got a little worse while he was on PO antibiotics, then much worse after he finished his oral antibiotics on . He states that he is feeling much better today since starting back on the Zosyn. The pain he was having before is almost gone, and he is just "sore" in that area. No nausea vomiting fevers or chills. White count was normal. CT showed inflammation but no recurrence of his abscess. There is still a little gas where the abscess used to be and the nearby colon still looks thickened and inflamed. On exam he is hydrogenation still operator to palpation in the left lower quadrant but less than yesterday. Assessment/plan: Recurrent diverticulitis. The CT does not look as bad as I had expected, and he states that he is already feeling better after a couple doses of Zosyn. Options are to proceed with surgical resection as planned, or try a longer treatment with IV antibiotics. The patient strongly prefers to try IV antibiotics to avoid ostomy. I spoke with the returned case inspector, and she states that he would need to be approved for IV antibiotics through [facility] and return to the hospital daily. The patient states that he is able to do that and has reliable transportation. I will ask Dr. Wood to see him. The patient understands that if he does not respond appropriately to IV antibiotics, or if his diverticulitis recurs after completing treatment, surgery may still be necessary. Surgery Progress Note: Obj - Vital signs Vital signs: Vital Signs - Most Recent Temp Pulse Resp BP Pulse Ox 98.3 F 63 16 127/85 98 03/20/19 11:15 03/20/19 11:15 03/20/19 11:15 03/20/19 11:15 03/20/19 11:15 Surgery Progress Note: Results - Labs Result Diagrams: 03/19/19 18:53 03/19/19 18:53
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
[2019-03-21] MEDS: traMADol HCl 50 MG TAB PO PRN ×2 (00:16→17:38)
[2019-03-21] MEDS: Piperacillin/Tazobactam 3.375 GM in Sodium Chloride 0.9% 100 ML IVPB SCH ×4 (00:17→17:28)
[2019-03-21] MEDS: D5 1/2 NS w/20 mEq KCL 1,000 ML IV SCH ×3 (00:17→22:23)
[2019-03-21] MEDS: Losartan 25 MG TAB PO SCH (09:27)
[2019-03-21] MEDS: Pantoprazole 40 MG VIAL IVP SCH (09:28)
[2019-03-21] MEDS: cloNIDine 0.1 MG TAB PO SCH ×2 (09:28→21:28)
[2019-03-21] MEDS: Carvedilol 25 MG TAB PO SCH ×2 (09:28→21:28)
[2019-03-21] MEDS: Amlodipine 10 MG TAB PO SCH (09:28)
[2019-03-21] MEDS ORDERED: Bupivacaine HCl 0.5%/Epinephrine 1:200,000/PF 30 ml Vial ONE (13:21)
--- NOTE | 2019-03-21 15:13 | SPC ---
Ultrasound and Fluoroscopic guided left upper extremity PICC placement HISTORY: Diverticulitis. Patient needs long-term IV antibiotics. FINDINGS: Informed consent obtained prior to the procedure. An appropriate access site was determined with ultrasound guidance. The area was then meticulously pr epped and draped in usual sterile fashion. Skin overlying the left basilic vein anesthetized with 1% buffered lidocaine. Utilizing direct sonogr aphic guidance, vascular access is obtained via the left basilic vein, and an 0.018in guidewire was advanced to the cavoatrial junction. Intravascular length is calculated at 41 cm, and the PICC is cut accordingly. Needle is removed and replaced with a peel-away sheath. The PICC was advanced over the wire. Wire and peel-away sheath were removed. The tip of the catheter overlies the cavoatrial junction. The catheter was accessed and aspirated/flushed easily. Exposure data: 0 minutes of fluoroscopic time 63 mGy centimeter squared FINDINGS: Technically successful placement of a 41 centimeter single lumen 5 Danish left upper extremity PICC l ine. IMPRESSION: Successful ultrasound guided placement of a left upper extremity PICC.
[2019-03-22] MEDS: Piperacillin/Tazobactam 3.375 GM in Sodium Chloride 0.9% 100 ML IVPB SCH ×5 (00:17→23:48)
[2019-03-22] MEDS: D5 1/2 NS w/20 mEq KCL 1,000 ML IV SCH ×3 (04:30→23:53)
[2019-03-22] MEDS: cloNIDine 0.1 MG TAB PO SCH ×2 (08:06→20:27)
[2019-03-22] MEDS: Losartan 25 MG TAB PO SCH (08:07)
[2019-03-22] MEDS: Amlodipine 10 MG TAB PO SCH (08:07)
[2019-03-22] MEDS: Carvedilol 25 MG TAB PO SCH ×2 (08:07→20:27)
[2019-03-22] MEDS: traMADol HCl 50 MG TAB PO PRN (08:08)
[2019-03-22] MEDS: Acetaminophen 325 MG TAB PO PRN (08:09)
[2019-03-22] MEDS: Pantoprazole 40 MG VIAL IVP SCH (09:00)
[2019-03-22] MEDS ORDERED: Fentanyl 250 MCG/5 ML VIAL ONE (09:13)
[2019-03-22 09:18] LABS: #Eosinphils 0.1 thou/uL (0.0-0.7); #Lymphocytes 1.1 thou/uL (1.20-3.40); #Monocytes 0.5 thou/uL (0.11-0.59); #Neutrophils 3.4 thou/uL (1.40-6.50); %Basophils 0.4 % (0.0-1.0); %Eosinophils 2.6 % (0.0-10.0); %Lymphocytes 21.6 % (21.0-51.0); %Monocytes 9.5 % (0.0-10.0); Hemoglobin 10.8 g/dL (14.0-18.0); Mean Corpuscular HGB CONC 33.3 g/dL (32.0-36.0); Mean Corpuscular Hemoglobin 31.7 pg (27.0-31.0); Mean Corpuscular Volume 95.2 fL (78.0-98.0); Mean Platelet Volume 8.1 fL (7.4-10.4); Platelet Count 182 thou/uL (130-400); RBC Distribution Width 13.6 % (11.5-14.5); Red Blood Cell (RBC) Count 3.42 mill/uL (4.70-6.10); White Blood Cell (WBC) Count 5.1 thou/uL (4.8-10.8)
[2019-03-22 09:25] LABS: INR-International Normal Ratio 1.2; PTT 29.3 SEC (22.9-36.1); Prothrombin Time 14.7 SEC (12.0-14.7)
[2019-03-22 09:42] LABS: ALT (SGPT) Less than 7 U/L (8-55); AST (SGOT) 8 U/L (5-34); Albumin 3.5 g/dL (3.5-5.0); Alkaline Phosphatase 52 U/L (40-150); Anion Gap 9 mmol/L (10-20); BUN (Urea Nitrogen) 4 mg/dL (8.9-20.6); Bilirubin, Total 0.6 mg/dL (0.2-1.2); Calc. Creatinine Clearance 79 mL/min (70-130); Carbon Dioxide 24 mmol/L (22-29); Cardiac Risk 3.5 (Less than 4.5); Chloride 108 mmol/L (98-107); Cholesterol 145 mg/dl (< 200 Desired); Estimated GFR-MDRD 81; Globulin 2.9 g/dL (2.4-3.5); Glucose 105 mg/dL (70-105); HDL Cholesterol 41 mg/dL (>60 Neg Risk); LDL Cholesterol, Calculated 90 mg/dL; Magnesium 1.7 mg/dL (1.6-2.6); Phosphorus 2.8 mg/dL (2.3-4.7); Potassium 3.8 mmol/L (3.5-5.1); Protein, Total 6.4 g/dL (6.0-8.3); Sodium 137 mmol/L (136-145); Triglycerides 69 mg/dL (Less than 150)
[2019-03-22] MEDS ORDERED: Bupivacaine/Epinephrine 0.25% 30 ML VIAL ONE (09:43)
[2019-03-22] MEDS ORDERED: Iothalamate Meglumine 60% 50 ML VIAL FS ONE (09:43)
[2019-03-22] MEDS ORDERED: Midazolam HCl 2 mg/2 ml Vial ONE ×2 (10:29→12:35)
[2019-03-22] MEDS ORDERED: Fentanyl 100 MCG/2 ML VIAL ONE ×2 (10:29→15:38)
[2019-03-22] MEDS ORDERED: Piperacillin/Tazobactam 3.375 GM VIAL ONE (10:42)
[2019-03-22] MEDS ORDERED: Promethazine HCl 25 MG/ML VIAL IM PRN ×3 (10:50→15:21)
[2019-03-22] MEDS ORDERED: Promethazine HCl 25 MG/ML VIAL SLOW IVP PRN ×2 (10:50→15:21)
[2019-03-22] MEDS ORDERED: Ondansetron HCl/PF 4 MG/2 ML Vial IVP PRN ×2 (10:50→15:21)
--- NOTE | 2019-03-22 11:17 | PDOC.GSPN ---
Surgery Progress Note: Subj - Subjective Narrative: Patient started on a full liquid diet last night. Through the night he has had episodes of severe left lower quadrant pain. This is colicky in nature. No nausea or vomiting. No fever but he is having some chills. Quite tender to palpation in the left lower quadrant. No rigidity rebound or guarding. Assessment/plan: Worsening abdominal pain after attempt to advance diet. His left lower quadrant tenderness has not resolved with this worsening pain I feel that he has failed IV antibiotic therapy. I recommended that we proceed to the operating room for colectomy. Inherent risks of surgery were discussed. These include but are not limited to bleeding, infection, risks of anesthesia, damage nearby structures including bowel, blood vessels, and ureter. I recommend ureteral stent placement to minimize this risk. If inflammation is very severe we may divert and come back later to do the resection. He will need a diverting ostomy which can be taken down at a later date. Surgery Progress Note: Obj - Vital signs Vital signs: Vital Signs - Most Recent Temp Pulse Resp BP Pulse Ox 98.9 F 68 20 160/108 H 100 03/22/19 07:25 03/22/19 08:07 03/22/19 07:25 03/22/19 08:07 03/22/19 07:25 Surgery Progress Note: Results - Labs Result Diagrams: 03/22/19 09:06 03/22/19 09:06 Lab results: Laboratory Results - last 24 hr 03/22/19 03/22/19 03/22/19 09:06 09:06 09:06 WBC 5.1 RBC 3.42 L Hgb 10.8 L Hct 32.5 L MCV 95.2 MCH 31.7 H MCHC 33.3 RDW 13.6 Plt Count 182 MPV 8.1 Neutrophils % 66.0 Lymphocytes % 21.6 Monocytes % 9.5 Eosinophils % 2.6 Basophils % 0.4 Neutrophils # 3.4 Lymphocytes # 1.1 L Monocytes # 0.5 Eosinophils # 0.1 Basophils # 0.0 PT INR APTT Sodium 137 Potassium 3.8 Chloride 108 H Carbon Dioxide 24 Anion Gap 9 L BUN 4 L Creatinine 1.16 Estimated GFR (MDRD) 81 Glucose 105 Calcium 9.0 Phosphorus 2.8 Magnesium 1.7 Total Bilirubin 0.6 AST 8 ALT Less than 7 L Alkaline Phosphatase 52 Serum Total Protein 6.4 Albumin 3.5 Globulin 2.9 Albumin/Globulin Ratio 1.2 Prealbumin 22.0 Triglycerides 69 Cholesterol 145 LDL Cholesterol, Calc 90 HDL Cholesterol 41 Heart Disease Risk Ratio 3.5 03/22/19 09:06 WBC RBC Hgb Hct MCV MCH MCHC RDW Plt Count MPV Neutrophils % Lymphocytes % Monocytes % Eosinophils % Basophils % Neutrophils # Lymphocytes # Monocytes # Eosinophils # Basophils # PT 14.7 INR 1.2 APTT 29.3 Sodium Potassium Chloride Carbon Dioxide Anion Gap BUN Creatinine Estimated GFR (MDRD) Glucose Calcium Phosphorus Magnesium Total Bilirubin AST ALT Alkaline Phosphatase Serum Total Protein Albumin Globulin Albumin/Globulin Ratio Prealbumin Triglycerides Cholesterol LDL Cholesterol, Calc HDL Cholesterol Heart Disease Risk Ratio
[2019-03-22] MEDS ORDERED: Sodium Acetate 2 mEq/ml 40 MEQ, Sodium Chloride 30 MEQ, Potassium Chloride 20 MEQ, Pota... IV SCH (14:00)
[2019-03-22] MEDS ORDERED: Fat Emulsion 250 ML in D15W-AA 5% with Lytes 2,000 ML IV SCH (14:00)
[2019-03-22] MEDS ORDERED: Dexamethasone 20 MG/5 ML VIAL ONE (14:41)
[2019-03-22] MEDS ORDERED: diphenhydrAMINE 50 MG/ML VIAL ONE (14:41)
[2019-03-22] MEDS ORDERED: Ondansetron PF 4 MG/2 ML Vial ONE (14:41)
[2019-03-22] MEDS ORDERED: Glycopyrrolate 0.2 MG/ML 5 ML SYRINGE ONE (14:41)
[2019-03-22] MEDS ORDERED: Rocuronium Bromide 10 MG/ML (10ML VIAL) ONE (14:41)
[2019-03-22] MEDS ORDERED: PROPOFOL 200 MG/20 ML VIAL ONE (14:41)
[2019-03-22] MEDS ORDERED: ePHEDrine 50 MG/ML VIAL ONE (14:41)
[2019-03-22] MEDS ORDERED: Lidocaine 2% PF 5 ML VIAL ONE (14:41)
[2019-03-22] MEDS ORDERED: Ondansetron PF 4 MG/2 ML Vial IVP PRN (15:07)
[2019-03-22] MEDS ORDERED: hydrALAZINE 20 MG/ML VIAL SLOW IVP PRN (15:07)
[2019-03-22] MEDS ORDERED: Morphine 10 MG/ML VIAL SLOW IVP PRN (15:07)
[2019-03-22] MEDS ORDERED: Morphine 2 MG/ML SYRINGE SLOW IVP PRN (15:07)
--- NOTE | 2019-03-22 16:03 | OP ---
DATE OF PROCEDURE: 03/22/2019 PREOPERATIVE DIAGNOSIS: Acute diverticulitis. POSTOPERATIVE DIAGNOSIS: Acute diverticulitis. PROCEDURES PERFORMED: 1. Cystoscopy. 2. Left retrograde pyelogram. 3. 6 x 26 double-J ureteral stent placement on Dangler. 4. 16-Trinidadian Mayen catheter placement. ANESTHESIA: General. COMPLICATIONS: None apparent. DISPOSITION: Case turned over to General Surgery for laparotomy. INDICATIONS FOR PROCEDURE: Mr. Baptiste is a 48-year-old male with severe diverticulitis, undergoing laparotomy. General surgery recommending ureteral stent. The patient is currently prepped and draped. Dr. Regalado requesting ureteral stent placement to keep the ureters out of a harm's way. He has been provided Zosyn periprocedural. DESCRIPTION OF PROCEDURE: The patient was placed in dorsal lithotomy position. A 22-Trinidadian cystoscope was utilized for cystoscopy, which demonstrated no evidence of urethral stricture. Bilobar coapting lateral lobes with no significant obstruction of the bladder neck are noted. Bladder was entered without significant issues. The UOs identified in normal anatomical location with no evidence of bladder tumor, stones, or inflammation of concern. An open-ended catheter was intubated into the left ureter, a retrograde pyelogram demonstrates no evidence of filling defect or significant deviation of concern. A 0.035 Sensor wire was placed into the left mid to upper pole and a 6 x 26 double-J ureteral stent placed without difficulty. Dangler was left in situ. A 16-Trinidadian Mayen catheter was placed adjacent to the Dangler and the Dangler itself taped to the Mayen catheter with Tegaderm. 10 mL insufflated. Case turned over to General Surgery to complete laparotomy. Anticipate Mayen, ureteral stent can come out tomorrow morning. Job ID: [id number] [facility]
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
--- NOTE | 2019-03-22 16:50 | RAD ---
EXAM: XR Fluoro Per Hour Portable PROVIDED CLINICAL HISTORY: Ureteral stent COMPARISON: None FINDINGS: Multiple spot fluoroscopic images were obtained by Dr. Harkins during the course of ureteral stent placement. IMPRESSION: As above.
[2019-03-22] MEDS: Ketorolac Tromethamine 30 MG/ML VIAL IVP SCH ×2 (18:04→23:49)
[2019-03-22] MEDS: Acetaminophen 1,000 MG in Premix Bag 1 BAG IVPB SCH ×2 (18:05→23:48)
[2019-03-22] MEDS: Famotidine 20 MG TAB PO SCH (20:27)
[2019-03-22] MEDS: Famotidine/PF 20 mg/2ml Vial SLOW IVP SCH (20:28)
[2019-03-22] MEDS: Morphine 4 MG/ML VIAL SLOW IVP PRN (20:32)
[2019-03-22] MEDS: Sodium Acetate 2 mEq/ml 40 MEQ, Sodium Chloride 30 MEQ, Potassium Chloride 20 MEQ, Pota... IV SCH (22:38)
[2019-03-23] MEDS: Morphine 4 MG/ML VIAL SLOW IVP PRN ×2 (03:04→08:58)
[2019-03-23] MEDS: D5 1/2 NS w/20 mEq KCL 1,000 ML IV SCH ×3 (03:11→23:20)
[2019-03-23] MEDS: Acetaminophen 1,000 MG in Premix Bag 1 BAG IVPB SCH ×2 (06:01→13:03)
[2019-03-23] MEDS: Piperacillin/Tazobactam 3.375 GM in Sodium Chloride 0.9% 100 ML IVPB SCH ×4 (06:01→23:20)
[2019-03-23] MEDS: Ketorolac Tromethamine 30 MG/ML VIAL IVP SCH ×4 (06:02→23:19)
[2019-03-23 06:56] LABS: #Lymphocytes 0.9 thou/uL (1.20-3.40); #Monocytes 0.6 thou/uL (0.11-0.59); #Neutrophils 6.9 thou/uL (1.40-6.50); %Basophils 0.2 % (0.0-1.0); %Lymphocytes 10.6 % (21.0-51.0); %Monocytes 7.5 % (0.0-10.0); %Neutrophils 81.6 % (42.0-75.0); Hemoglobin 9.8 g/dL (14.0-18.0); Mean Corpuscular HGB CONC 32.7 g/dL (32.0-36.0); Mean Corpuscular Hemoglobin 31.4 pg (27.0-31.0); Platelet Count 167 thou/uL (130-400); RBC Distribution Width 13.5 % (11.5-14.5); Red Blood Cell (RBC) Count 3.13 mill/uL (4.70-6.10); White Blood Cell (WBC) Count 8.4 thou/uL (4.8-10.8)
[2019-03-23 07:20] LABS: Anion Gap 9 mmol/L (10-20); BUN (Urea Nitrogen) 11 mg/dL (8.9-20.6); Calc. Creatinine Clearance 69 mL/min (70-130); Calcium 8.5 mg/dL (7.8-10.44); Carbon Dioxide 24 mmol/L (22-29); Chloride 107 mmol/L (98-107); Estimated GFR-MDRD 70; Glucose 136 mg/dL (70-105); Potassium 4.2 mmol/L (3.5-5.1); Sodium 136 mmol/L (136-145)
[2019-03-23] MEDS: Losartan 25 MG TAB PO SCH (09:03)
[2019-03-23] MEDS: Famotidine 20 MG TAB PO SCH ×2 (09:03→21:00)
[2019-03-23] MEDS: Carvedilol 25 MG TAB PO SCH ×2 (09:03→23:13)
[2019-03-23] MEDS: cloNIDine 0.1 MG TAB PO SCH ×2 (09:04→23:13)
[2019-03-23] MEDS: Amlodipine 10 MG TAB PO SCH (09:04)
[2019-03-23] MEDS: Famotidine/PF 20 mg/2ml Vial SLOW IVP SCH ×2 (09:14→23:14)
[2019-03-23] MEDS: Pantoprazole 40 MG VIAL IVP SCH (09:14)
[2019-03-23] MEDS ORDERED: Sodium Chloride 0.9% 1,000 ML IV SCH (10:30)
--- NOTE | 2019-03-23 10:39 | PDOC.OP ---
Operative Note - Operative Note Operative Note: PROCEDURE: Laparoscopic hand-assisted sigmoid colectomy with descending colostomy SURGEON: Kadi Regalado M.D. DATE: 03/22/2019 PREOPERATIVE DIAGNOSIS: Sigmoid diverticulitis POSTOPERATIVE DIAGNOSIS: Sigmoid diverticulitis HISTORY: Patient with recurrent or resistant sigmoid diverticulitis who was readmitted for recurrent symptoms after completing oral antibiotics. He initially responded to IV antibiotics but when his diet was attempted to be advanced he had severe pain and the decision was made to proceed with Rios's procedure. FINDINGS: Severely inflamed sigmoid colon with normal rectum and descending colon. Moderate acute and chronic adhesions. PROCEDURE IN DETAIL: After informed consent was obtained and appropriate IV antibiotics were continued the patient was taken to the operating room and was placed in supine position and general endotracheal anesthesia was administered. He was placed in lithotomy position and prepped and draped in standard sterile fashion. Cystoscopy and left ureteral stent placement was performed by Dr. Rivera as dictated under separate cover. 6 cm periumbilical incision was then made. Dissection was carried down to the fascia which was incised under direct vision, removing the previously placed PDS suture as well as some old braided nylon suture. The peritoneal cavity was entered under direct vision and a few bowel adhesions taken down under direct vision clearing the space around the umbilicus. A wound protector and GelPort were placed and carbon dioxide gas insufflated to an intra-abdominal pressure 15 which the patient tolerated well. The right lower quadrant and right lateral incisions were re-incised and 5 mm trochars placed at this locations under direct laparoscopic vision. Multiple small bowel adhesions were taken down in the pelvis allowing the small bowel to be drawn up out of the pelvis. Additional omental adhesions were cleared in the upper abdomen to allow placement of an epigastric port. The patient had very dense adhesions between the omentum and the liver and between the liver and the anterior abdominal wall from his previous trauma laparotomy and these adhesions were not taken down. The stomach and transverse colon were visible through the omentum and these were carefully avoided. An additional 5 mm port was placed at the planned location of the colostomy. Adhesions between the small bowel and the sigmoid colon were carefully taken down through the avascular plane, following which the sigmoid colon was mobilized medially with moderate to severe difficulty due to chronic inflammation. A plane was able to be developed and the peritoneum incised and the colon mobilized down to the level of the soft and normal feeling rectum. The previous abscess cavity was empty. The ureter with the stent was palpable in the retroperitoneum well away from the sigmoid colon. A window was created through the mesorectum at the upper rectum and the right lower quadrant 5 mm trocar exchanged for a 12 mm trocar. A laparoscopic stapler was placed across the upper rectum, closed and fired. The mesorectum was then divided using LigaSure. The colon was again carefully confirmed to be well away from the course of the ureter, and the remainder of the sigmoid mesentery also divided using LigaSure device to the level of the soft normal feeling descending colon. The descending colon was divided with another load of the stapler and removed through the wound protector and marked for pathology. The descending colon was mobilized medially enough to allow it to come up to the abdominal wall without tension. The ureter was never exposed but was confirmed to be well away from the area of dissection in the retroperitoneum. The rectal stump was marked with 2 Prolene sutures. The entire small bowel was run from the ligament of Treitz to the ileocecal valve and all adhesions taken down. The abdominal cavity was copiously irrigated and hemostasis verified. The 12 mm right lower quadrant trocar was removed and the fascial defect closed with a 0 Vicryl suture under direct vision. The right lateral trocar was removed and hemostasis verified. The left lower quadrant trocar was removed and a circular incision made and dissection carried down to the anterior rectus sheath. This was incised in a cruciate manner. The underlying rectus muscles were split longitudinally and the posterior rectus sheath incised in a cruciate manner. The tract was dilated and the descending colon brought out through the incision and secured with a [place] clamp. This was confirmed to be in the correct orientation without twisting and was secured to the rectus sheath with Vicryl sutures. The small bowel and omentum were drawn down to their normal anatomic position. The GelPort and wound protector were removed and Seprafilm placed anterior to the omentum. The fascia was closed with a running PDS suture. The wound was copiously irrigated and the skin incisions were all closed with running subcuticular Monocryl sutures. Dermabond dressings were placed and once this was dry a towel was placed excluding the incisions from the field as the colostomy was matured. The staple line was excised and a bishop paiute colostomy created by taking full-thickness bites of the edge of the colon, Lembert's sutures a few centimeters proximally and securing this to the dermis at 4 quadrants. The colostomy was secured to the skin with full-thickness bites of the edge of the colostomy to the dermis at intervals between the sutures. The colostomy was palpated and was widely patent through the fascia. A colostomy appliance was applied. The patient was extubated and taken to recovery in good condition. Estimated blood loss was minimal. There were no complications. Specimen is sigmoid colon, with suture proximal.
--- NOTE | 2019-03-23 11:19 | PDOC.GSPN ---
Surgery Progress Note: Subj - Subjective Narrative: Patient is feeling all right today. He has some postoperative pain but the severe left lower quadrant pain has resolved. No nausea or vomiting, but also no flatus in the bag. He has only been taking some ice chips so far. He has been ambulating. Vital signs are okay and incisions look good. Colostomy is pink and healthy. Mayen catheter and stent are both still in place and the urine in the bag is still blood tinged. Assessment/plan: Doing well status post laparoscopic hand-assisted Rios's. He has some persistent hematuria which I think is likely due to cystoscopy and stent placement as well as intraoperative palpation of the ureter. Dr. Juan Painter is following up with him and I will leave Mayen catheter management to her. From a surgical standpoint I have advanced his diet to clears, but we'll wait for flatus before advancing it further. Continue IV antibiotics. Once bowel function resumes, he can likely be discharged home with Augmentin and Flagyl to complete a one-week course of treatment. Dr. Paulino will be rounding on him this weekend. Surgery Progress Note: Obj - Vital signs Vital signs: Vital Signs - Most Recent Temp Pulse Resp BP Pulse Ox 98.2 F 60 18 147/85 H 99 03/23/19 08:07 03/23/19 09:04 03/23/19 08:07 03/23/19 09:04 03/23/19 08:07 Surgery Progress Note: Results - Labs Result Diagrams: 03/23/19 06:44 03/23/19 06:44 Lab results: Laboratory Results - last 24 hr 03/23/19 03/23/19 03/23/19 00:26 06:07 06:44 WBC RBC Hgb Hct MCV MCH MCHC RDW Plt Count MPV Neutrophils % Lymphocytes % Monocytes % Eosinophils % Basophils % Neutrophils # Lymphocytes # Monocytes # Eosinophils # Basophils # Sodium 136 Potassium 4.2 Chloride 107 Carbon Dioxide 24 Anion Gap 9 L BUN 11 Creatinine 1.32 H Estimated GFR (MDRD) 70 Glucose 136 H POC Glucose 171 H 164 H Calcium 8.5 03/23/19 06:44 WBC 8.4 RBC 3.13 L Hgb 9.8 L Hct 30.0 L MCV 96.0 MCH 31.4 H MCHC 32.7 RDW 13.5 Plt Count 167 MPV 8.0 Neutrophils % 81.6 H Lymphocytes % 10.6 L Monocytes % 7.5 Eosinophils % 0.0 Basophils % 0.2 Neutrophils # 6.9 H Lymphocytes # 0.9 L Monocytes # 0.6 H Eosinophils # 0.0 Basophils # 0.0 Sodium Potassium Chloride Carbon Dioxide Anion Gap BUN Creatinine Estimated GFR (MDRD) Glucose POC Glucose Calcium
[2019-03-23] MEDS ORDERED: HYDROcodone/Acetaminophen 7.5/325 mg Tablet PO PRN (11:22)
[2019-03-23] MEDS ORDERED: Phenazopyridine HCl 97.5 MG TABLET PO PRN (12:44)
--- NOTE | 2019-03-23 13:27 | PRG ---
DATE OF SERVICE: 03/23/2019 SUBJECTIVE: The patient is doing okay. OBJECTIVE: VITAL SIGNS: Stable. He is afebrile. Urine output 2370 per Mayen, pink tinged. ABDOMEN: Soft, colostomy with air and stool. GENITOURINARY: Mayen catheter demonstrating shital pink-tinged urine. LABORATORY DATA: White count 8, hemoglobin 9.8, and platelet 167. Creatinine is 1.32. Admitting creatinine 1.4, yesterday it was 1.1. IMPRESSION AND PLAN: Mr. Baptiste is a 48-year-old male, postop day #1, status post diverting colostomy, postop day #1 cysto, left retrograde, stent placement, requested by General Surgery. Mayen catheter and ureteral stent removed at bedside uneventfully. I informed the patient that he may have some pink-tinged hematuria for the next few days and dysuria, Azo p.r.n. is advised. He did not have significant obstructive component on cystoscopy. Continue strict I's and O's. will sign off. Call if any questions or concerns. Job ID: [id number] MTDD
[2019-03-23] MEDS: Enoxaparin Sodium 40 MG/0.4 ML SYRINGE SC SCH (14:48)
[2019-03-23] MEDS: Sodium Acetate 2 mEq/ml 40 MEQ, Sodium Chloride 30 MEQ, Potassium Chloride 20 MEQ, Pota... IV SCH ×2 (15:06→23:14)
[2019-03-23] MEDS ORDERED: Acetaminophen 325 MG Suppository PR PRN (15:21)
[2019-03-23] MEDS ORDERED: Acetaminophen 325 MG TAB PO PRN (15:21)
[2019-03-24] MEDS: Morphine 4 MG/ML VIAL SLOW IVP PRN ×3 (03:49→21:35)
[2019-03-24] MEDS: Ketorolac Tromethamine 30 MG/ML VIAL IVP SCH (03:53)
[2019-03-24] MEDS: Piperacillin/Tazobactam 3.375 GM in Sodium Chloride 0.9% 100 ML IVPB SCH ×3 (03:54→18:06)
[2019-03-24 06:16] LABS: #Eosinphils 0.1 thou/uL (0.0-0.7); #Monocytes 0.4 thou/uL (0.11-0.59); #Neutrophils 4.1 thou/uL (1.40-6.50); %Basophils 0.3 % (0.0-1.0); %Eosinophils 1.1 % (0.0-10.0); %Lymphocytes 17.3 % (21.0-51.0); %Monocytes 7.2 % (0.0-10.0); %Neutrophils 74.1 % (42.0-75.0); Hemoglobin 8.9 g/dL (14.0-18.0); Mean Corpuscular HGB CONC 33.1 g/dL (32.0-36.0); Mean Corpuscular Hemoglobin 31.6 pg (27.0-31.0); Mean Corpuscular Volume 95.5 fL (78.0-98.0); Mean Platelet Volume 8.3 fL (7.4-10.4); Platelet Count 156 thou/uL (130-400); RBC Distribution Width 13.6 % (11.5-14.5); Red Blood Cell (RBC) Count 2.82 mill/uL (4.70-6.10); White Blood Cell (WBC) Count 5.6 thou/uL (4.8-10.8)
[2019-03-24 06:35] LABS: Anion Gap 9 mmol/L (10-20); BUN (Urea Nitrogen) 20 mg/dL (8.9-20.6); Calc. Creatinine Clearance 51 mL/min (70-130); Calcium 7.8 mg/dL (7.8-10.44); Carbon Dioxide 24 mmol/L (22-29); Chloride 111 mmol/L (98-107); Estimated GFR-MDRD 50; Glucose 92 mg/dL (70-105); Potassium 3.6 mmol/L (3.5-5.1); Sodium 140 mmol/L (136-145)
[2019-03-24] MEDS: Losartan 25 MG TAB PO SCH (08:20)
[2019-03-24] MEDS: Carvedilol 25 MG TAB PO SCH ×2 (08:21→21:24)
[2019-03-24] MEDS: cloNIDine 0.1 MG TAB PO SCH ×2 (08:21→21:24)
[2019-03-24] MEDS: Amlodipine 10 MG TAB PO SCH (08:22)
[2019-03-24] MEDS: Famotidine/PF 20 mg/2ml Vial SLOW IVP SCH ×2 (08:23→21:25)
[2019-03-24] MEDS: Pantoprazole 40 MG VIAL IVP SCH (08:23)
[2019-03-24] MEDS: Famotidine 20 MG TAB PO SCH ×2 (08:24→21:24)
[2019-03-24] MEDS: Enoxaparin Sodium 40 MG/0.4 ML SYRINGE SC SCH (08:40)
[2019-03-24] MEDS: D5 1/2 NS w/20 mEq KCL 1,000 ML IV SCH ×2 (08:45→15:16)
--- NOTE | 2019-03-24 10:11 | PRG ---
DATE OF SERVICE: 03/24/2019 SUBJECTIVE: Mr. Baptiste feels good. He is tolerating the clear liquid diet. He is ambulatory. His pain is controlled. OBJECTIVE: VITAL SIGNS: He is afebrile. Vital signs are stable. ABDOMEN: Soft and appropriately tender. His ostomy bag has some stool in it. LABORATORY DATA: His white blood cell count is 5, hemoglobin is stable at 8.9. Creatinine is up to 1.77. ASSESSMENT: Postoperative sigmoid colectomy and colostomy. PLAN: Stop Toradol as his creatinine is up slightly. Advance to full liquid diet. Continue to encourage mobilization. Job ID: [id number]
[2019-03-24] MEDS: HYDROcodone/Acetaminophen 7.5/325 mg Tablet PO PRN ×2 (10:49→15:32)
[2019-03-24] MEDS: Sodium Acetate 2 mEq/ml 40 MEQ, Sodium Chloride 30 MEQ, Potassium Chloride 20 MEQ, Pota... IV SCH (15:32)
--- NOTE | 2019-03-24 16:35 | PRG ---
DATE OF SERVICE: 03/24/2019 SUBJECTIVE: Mr. Baptiste did not improve and eventually agreed to resection of involved segment of colon. The patient has a colostomy now and is feeling much better. No headaches. No shortness of breath. No more abdominal pain. Voiding without difficulty. OBJECTIVE: VITAL SIGNS: Temperature has been normal throughout. BP 150/93, pulse 81, respirations 16, and O2 saturation 98. SKIN: Showed a midline incision. The colostomy with normal appearance. LUNGS: Clear. HEART: S1 and S2, regular rate. ABDOMEN: Soft, not distended. Pathology is pending. The operative report was reviewed and the patient had very dense adhesions between the omentum and liver and between liver, anterior abdominal wall from the previous laparotomy. Those adhesions were not touched. Adhesions between the small bowel and sigmoid colon were carefully taken down. The plane was developed and peritoneum incised. The previous abscess cavity was found empty. The ureter with the stent was palpable and LigaSure device was used to divide the areas of interest. LABORATORY DATA: White cell count 5.6, hemoglobin 8.9, platelets 156. Creatinine 1.77 which is a little bit worse than admission. Microbiology with E. coli group F Streptococcus and two anaerobes. The patient is currently on piperacillin and tazobactam. ASSESSMENT AND DISCUSSION: Complicated diverticulitis with abscess formation, initially drained laparoscopically and now failed conservative management, underwent a segmental resection with colostomy. The patient had stent placement during the procedure to avoid damage to the ipsilateral ureter. No complications have been noted. This procedure will allow shortening of the duration of antimicrobial therapy. It should be able to transition to oral antimicrobial therapy for discharge planning I believe. We have full identification of the organisms and should be able to treat him with a combination of Augmentin and Flagyl or if so desired we can continue him on maybe another week of IV ertapenem in the outpatient setting and then convert to oral antimicrobial therapy. The duration should be again shorter than what would be necessary without this procedure. Job ID: [id number]
[2019-03-25] MEDS: D5 1/2 NS w/20 mEq KCL 1,000 ML IV SCH (00:20)
[2019-03-25] MEDS: Piperacillin/Tazobactam 3.375 GM in Sodium Chloride 0.9% 100 ML IVPB SCH ×2 (00:21→05:37)
[2019-03-25 05:50] LABS: #Eosinphils 0.1 thou/uL (0.0-0.7); #Lymphocytes 1.1 thou/uL (1.20-3.40); #Monocytes 0.5 thou/uL (0.11-0.59); #Neutrophils 3.8 thou/uL (1.40-6.50); %Basophils 0.5 % (0.0-1.0); %Eosinophils 2.3 % (0.0-10.0); %Lymphocytes 19.3 % (21.0-51.0); %Monocytes 9.1 % (0.0-10.0); %Neutrophils 68.9 % (42.0-75.0); Hemoglobin 10.4 g/dL (14.0-18.0); Mean Corpuscular HGB CONC 33.1 g/dL (32.0-36.0); Mean Corpuscular Hemoglobin 31.3 pg (27.0-31.0); Mean Corpuscular Volume 94.6 fL (78.0-98.0); Mean Platelet Volume 8.3 fL (7.4-10.4); Platelet Count 190 thou/uL (130-400); RBC Distribution Width 13.5 % (11.5-14.5); Red Blood Cell (RBC) Count 3.33 mill/uL (4.70-6.10); White Blood Cell (WBC) Count 5.5 thou/uL (4.8-10.8)
[2019-03-25 06:12] LABS: Anion Gap 12 mmol/L (10-20); BUN (Urea Nitrogen) 22 mg/dL (8.9-20.6); Calc. Creatinine Clearance 48 mL/min (70-130); Calcium 9.1 mg/dL (7.8-10.44); Carbon Dioxide 26 mmol/L (22-29); Chloride 106 mmol/L (98-107); Estimated GFR-MDRD 46; Glucose 81 mg/dL (70-105); Sodium 140 mmol/L (136-145)
[2019-03-25] MEDS: Famotidine 20 MG TAB PO SCH ×2 (09:01→21:03)
[2019-03-25] MEDS: Losartan 25 MG TAB PO SCH (09:01)
[2019-03-25] MEDS: cloNIDine 0.1 MG TAB PO SCH ×2 (09:02→21:03)
[2019-03-25] MEDS: Carvedilol 25 MG TAB PO SCH ×2 (09:03→21:03)
[2019-03-25] MEDS: Amlodipine 10 MG TAB PO SCH (09:03)
[2019-03-25] MEDS: Enoxaparin Sodium 40 MG/0.4 ML SYRINGE SC SCH (09:04)
[2019-03-25] MEDS: Pantoprazole 40 MG VIAL IVP SCH (09:04)
[2019-03-25] MEDS: Famotidine/PF 20 mg/2ml Vial SLOW IVP SCH ×2 (09:04→21:04)
[2019-03-25] MEDS: Amoxicillin/Potassium Clav 875 MG TAB PO SCH ×2 (10:12→21:03)
[2019-03-25] MEDS: HYDROcodone/Acetaminophen 7.5/325 mg Tablet PO PRN ×3 (10:14→22:47)
--- NOTE | 2019-03-25 11:20 | CT ---
CT Stone Protocol: 03/25/2019 10:35 AM HISTORY: Previous left ureteral stent placement for hydronephrosis. COMPARISON: 03/19/2019 TECHNIQUE: Multiple contiguous axial images were obtained and a CT of the abdomen and pelvis without IV contrast . Coronal and sagittal reformats were performed. FINDINGS: This examination is limited for the evaluation of solid organs and vascular structures due to the lac k of intravenous contrast. Lower Chest: Bibasilar atelectasis Abdomen: Liver: within normal limits. Bile Ducts: Normal caliber. Gallbladder: No calcified gallstones. Normal caliber wall. Pancreas: within normal limits. Spleen: within normal limits. Adrenals: within normal limits. Kidneys: Nonobstructing calcifications in both kidneys measuring up to 4 mm in size. Pelvis: Reproductive Organs: No pelvic masses. Ureters: There is mild enlargement of the proximal left ureter. The ureter cannot be completely follo wed to the urinary bladder but the distal left ureter is decompressed. No obvious calcification is seen in either ureter. Bladder: within normal limits. Bowel: Diverting ostomy in the left lower quadrant of the abdomen. A Rios's pouch is seen in the p marcelo. The small bowel is normal in caliber. The appendix is normal. Mesenteric Lymph Nodes: No enlarged mesenteric lymph nodes. Peritoneum: A few bubbles of free air in the abdomen are from recent surgery. Vessels: Normal caliber aorta Retroperitoneum: within normal limits. Abdominal Wall: Air in the abdominal wall is from recent surgery. Bones: Unremarkable. IMPRESSION: 1. Postsurgical changes as above from colectomy and diverting ostomy 2. Mild left hydronephrosis with out obvious calcification seen in the distal left ureter. 3. Bilateral nonobstructing kidney stones
--- NOTE | 2019-03-25 11:35 | ULT ---
US Renal Bilateral STANDARD: 03/25/2019 9:52 AM CLINICAL HISTORY: Previous left ureteral stent placement and removal. STUDY: Renal ultrasound COMPARISON: CT abdomen/pelvis 03/25/2019 FINDINGS: Right kidney: Echogenicity: Normal. Masses/cysts: None. Hydronephrosis: Mild left hydronephrosis Calcifications: None Length: 12.0 cm Left kidney: Echogenicity: Normal. Masses/cysts: None. Hydronephrosis: None. Calcifications: 8 mm hyperechoic focus may represent one of the calcifications on CT. Length: 12.9 cm There is a nonspecific echogenic focus in the dependent aspect of the urinary bladder which may have an anechoic center. This does not have a CT correlate. IMPRESSION: 1. Mild left hydronephrosis 2. Nonobstructing left renal calcification 3. Nonspecific echogenic structure in the urinary bladder
[2019-03-25] MEDS: Sodium Chloride 0.9% 1,000 ML IV SCH ×2 (11:59→20:59)
--- NOTE | 2019-03-25 12:37 | PDOC.GSPN ---
Surgery Progress Note: Subj - Subjective Narrative: Doing well. No significant pain. Tolerating full liquids Surgery Progress Note: Obj - Vital signs Vital signs: Vital Signs - Most Recent Temp Pulse Resp BP Pulse Ox 98.3 F 60 21 H 161/94 H 99 03/25/19 11:00 03/25/19 11:00 03/25/19 11:00 03/25/19 11:00 03/25/19 11:00 - Physical Exam General: no distress Cardiovascular: regular rate and rhythm Respiratory: clear to auscultation Abdomen: soft, appropriately tender Wound: healing well Surgery Progress Note: Results - Labs Result Diagrams: 03/25/19 05:30 03/25/19 05:30 Lab results: Laboratory Results - last 24 hr 03/25/19 03/25/19 03/25/19 05:30 05:30 05:45 WBC 5.5 RBC 3.33 L Hgb 10.4 L Hct 31.5 L MCV 94.6 MCH 31.3 H MCHC 33.1 RDW 13.5 Plt Count 190 MPV 8.3 Neutrophils % 68.9 Lymphocytes % 19.3 L Monocytes % 9.1 Eosinophils % 2.3 Basophils % 0.5 Neutrophils # 3.8 Lymphocytes # 1.1 L Monocytes # 0.5 Eosinophils # 0.1 Basophils # 0.0 Sodium 140 Potassium 4.0 Chloride 106 Carbon Dioxide 26 Anion Gap 12 BUN 22 H Creatinine 1.90 H Estimated GFR (MDRD) 46 Glucose 81 POC Glucose 76 Calcium 9.1 03/25/19 11:24 WBC RBC Hgb Hct MCV MCH MCHC RDW Plt Count MPV Neutrophils % Lymphocytes % Monocytes % Eosinophils % Basophils % Neutrophils # Lymphocytes # Monocytes # Eosinophils # Basophils # Sodium Potassium Chloride Carbon Dioxide Anion Gap BUN Creatinine Estimated GFR (MDRD) Glucose POC Glucose 108 Calcium Surgery Progress Note: A/P - Problem (1) Intestinal diverticular abscess Current Visit: No Code(s): K63.0 - ABSCESS OF INTESTINE Status: Acute - Plan Plan: Doing well. CT performed to rule out significant hydro on the left -advance to GI soft -doing well on ambulation
--- NOTE | 2019-03-25 12:47 | PRG ---
DATE OF SERVICE: 03/25/2019 SUBJECTIVE: patient without complaints. Denies significant flank pain, dysuria, or gross hematuria. OBJECTIVE: VITAL SIGNS: Stable. Temperature 98, heart rate 60, respirations 21, oxygen saturation 99, and blood pressure 161/94. Currently on full liquids without nausea or vomiting. I's and O's; 5189 in, urine output 4100 mL. ABDOMEN: Soft, nontender, and nondistended. No CVA tenderness. GENERAL: Appears to be in no acute distress. : Circumcised. Meatus is unremarkable. No evidence of intratesticular mass. LABORATORY DATA: White count 5, hemoglobin 10.4, and platelets 190. INR is 1.2 and PTT of 29. Renal function; creatinine on admission, his creatinine is 1.4, subsequently decreased to 1.3, 1.7, and 1.9 today. UA C and S has been ordered, results pending. Due to renal insufficiency noted on chart review, renal ultrasound was ordered this morning, demonstrating mild left hydronephrosis. Initial CT scan did demonstrate multiple bilateral punctate renal calculi. Therefore, CT staging stone protocol obtained, which I reviewed myself, demonstrating mild left hydronephrosis, bilateral nonobstructing renal calculi, no obvious ureteral calculi is seen. I can follow the ureter dilated to the level of the bifurcation of the iliacs. Stranding around the region is noted from recent surgery. IMPRESSION AND PLAN: 1. Mr. Baptiste is a pleasant 48-year-old black male with history of diverticulitis, status post diverting colostomy, sigmoid colectomy, postoperative day #3. 2. Postoperative day #3 cysto, left retrograde stent placement intraoperatively, requested by General Surgery to minimize risk of ureteral injury during resection. stent was removed on postoperative day #1. He has been voiding without significant issues. Due to acute renal insufficiency, workup as above. Although I do not see any obvious ureteral calculi, possibility of edema, passage of stone, hydronephrosis due to inflammatory changes, possible, although less likely possible narrowing due to recent colon surgery was reviewed. Toradol has been discontinued by General Surgery 2 days ago. will increase his IV fluids, recheck his creatinine tomorrow. If persistent elevation of renal function of concern, I advised regarding cysto and left retrograde stent. He has been added on for surgery for this Wednesday if needed. UA C and S pending. Job ID: [id number] MTDD
[2019-03-25 13:23] LABS: Bacteria/HPF None Seen HPF (None Seen); Bilirubin Negative (Negative); Blood, Urine 2+ (Negative); Clarity Clear (Clear); Glucose, Urine (Dipstick) Normal (Negative); Leukocyte Negative Leu/uL (Negative); Nitrite Negative (Negative); Protein, Urine (Dipstick) Negative (Neg-Trace); RBC/HPF Greater than 50 HPF (0-3); Squamous Epithelial 0-3 HPF (0-3); Urobilinogen Normal mg/dL (Less than 2)
[2019-03-25] MEDS: Sodium Acetate 2 mEq/ml 40 MEQ, Sodium Chloride 30 MEQ, Potassium Chloride 20 MEQ, Pota... IV SCH (15:11)
[2019-03-25] MEDS: Morphine 4 MG/ML VIAL SLOW IVP PRN (20:58)
[2019-03-26] MEDS: HYDROcodone/Acetaminophen 7.5/325 mg Tablet PO PRN ×4 (02:49→21:58)
[2019-03-26] MEDS: Sodium Chloride 0.9% 1,000 ML IV SCH ×4 (05:09→23:42)
[2019-03-26 05:26] LABS: #Eosinphils 0.2 thou/uL (0.0-0.7); #Lymphocytes 0.8 thou/uL (1.20-3.40); #Monocytes 0.6 thou/uL (0.11-0.59); #Neutrophils 5.8 thou/uL (1.40-6.50); %Basophils 0.1 % (0.0-1.0); %Eosinophils 2.1 % (0.0-10.0); %Lymphocytes 10.6 % (21.0-51.0); %Monocytes 8.4 % (0.0-10.0); %Neutrophils 78.7 % (42.0-75.0); Hemoglobin 10.3 g/dL (14.0-18.0); Mean Corpuscular HGB CONC 33.2 g/dL (32.0-36.0); Mean Corpuscular Hemoglobin 31.1 pg (27.0-31.0); Mean Corpuscular Volume 93.6 fL (78.0-98.0); Platelet Count 193 thou/uL (130-400); RBC Distribution Width 13.4 % (11.5-14.5); Red Blood Cell (RBC) Count 3.33 mill/uL (4.70-6.10); White Blood Cell (WBC) Count 7.4 thou/uL (4.8-10.8)
[2019-03-26 05:47] LABS: Anion Gap 11 mmol/L (10-20); BUN (Urea Nitrogen) 24 mg/dL (8.9-20.6); Calc. Creatinine Clearance 48 mL/min (70-130); Calcium 8.9 mg/dL (7.8-10.44); Carbon Dioxide 24 mmol/L (22-29); Chloride 105 mmol/L (98-107); Estimated GFR-MDRD 46; Glucose 110 mg/dL (70-105); Potassium 4.2 mmol/L (3.5-5.1); Sodium 136 mmol/L (136-145)
--- NOTE | 2019-03-26 09:42 | PRG ---
DATE OF SERVICE: 03/26/2019 SUBJECTIVE: The patient denies nausea, vomiting, or chills. Does have some left lower quadrant flank pain. Pain adequately controlled. PHYSICAL EXAMINATION: VITAL SIGNS: Stable, temperature 98, pulse 65, respirations 16, oxygen saturation is 99, and blood pressure 153/93. I's and O's; 5295 in and 3000 out. He is positive 2 L. GENERAL: The patient is in no acute distress. ABDOMEN: Soft. No rigidity. No rebound. No significant CVA tenderness on physical exam. EXTREMITIES: No cyanosis, clubbing, or edema. PERTINENT LABORATORY DATA: White count 7, hemoglobin 10, and platelets 193. Creatinine remains elevated at 1.9. Admitting creatinine of 1.4. UA demonstrates no bacteria, 4-6 wbc's, greater than 50 rbc's, negative leukocytes, nitrites. Currently on Augmentin p.o., previously on Zosyn. IMPRESSION AND PLAN: 1. Mr. Baptiste is a 48-year-old male with history of diverticulitis. Postoperative day #3, status post cysto, ureteral stent placement, requested by General Surgery. 2. Status post colostomy, sigmoid resection. 3. Renal insufficiency with left hydronephrosis. 4. Bilateral punctate renal calculi. Informed patient that if his creatinine remains elevated, now symptomatic, we will proceed with cysto, left retrograde ureteral stent placement tomorrow. N.p.o. after midnight. Levaquin on-call to OR. Differential diagnosis reviewed with patient. I do not see any obvious stone along ureter. Possible tissue edema from recent sigmoid resection is possible. Informed patient that we will place an indwelling ureteral stent, will require staging ureteroscopy at a later date. Job ID: [id number] MTDD
[2019-03-26] MEDS: Famotidine 20 MG TAB PO SCH ×2 (09:49→21:51)
[2019-03-26] MEDS: cloNIDine 0.1 MG TAB PO SCH ×2 (09:49→21:51)
[2019-03-26] MEDS: Amlodipine 10 MG TAB PO SCH (09:49)
[2019-03-26] MEDS: Losartan 25 MG TAB PO SCH (09:49)
[2019-03-26] MEDS: Carvedilol 25 MG TAB PO SCH ×2 (09:49→21:51)
[2019-03-26] MEDS: Famotidine/PF 20 mg/2ml Vial SLOW IVP SCH ×2 (09:50→22:17)
[2019-03-26] MEDS: Amoxicillin/Potassium Clav 875 MG TAB PO SCH ×2 (09:50→21:51)
[2019-03-26] MEDS: Pantoprazole 40 MG VIAL IVP SCH (09:50)
[2019-03-26] MEDS: Enoxaparin Sodium 40 MG/0.4 ML SYRINGE SC SCH ×2 (09:54→10:00)
[2019-03-26] MEDS: metroNIDAZOLE 500 MG TAB PO SCH ×3 (11:28→21:51)
[2019-03-26] MEDS: Sodium Acetate 2 mEq/ml 40 MEQ, Sodium Chloride 30 MEQ, Potassium Chloride 20 MEQ, Pota... IV SCH (15:44)
[2019-03-27 06:25] LABS: #Eosinphils 0.3 thou/uL (0.0-0.7); #Lymphocytes 1.2 thou/uL (1.20-3.40); #Monocytes 0.7 thou/uL (0.11-0.59); #Neutrophils 4.2 thou/uL (1.40-6.50); %Basophils 0.2 % (0.0-1.0); %Eosinophils 4.5 % (0.0-10.0); %Lymphocytes 18.8 % (21.0-51.0); %Monocytes 11.4 % (0.0-10.0); Hemoglobin 10.3 g/dL (14.0-18.0); Mean Corpuscular HGB CONC 33.1 g/dL (32.0-36.0); Mean Corpuscular Volume 93.6 fL (78.0-98.0); Mean Platelet Volume 8.1 fL (7.4-10.4); Platelet Count 205 thou/uL (130-400); RBC Distribution Width 13.4 % (11.5-14.5); Red Blood Cell (RBC) Count 3.32 mill/uL (4.70-6.10); White Blood Cell (WBC) Count 6.4 thou/uL (4.8-10.8)
[2019-03-27 06:58] LABS: ALT (SGPT) 7 U/L (8-55); AST (SGOT) 11 U/L (5-34); Albumin 3.4 g/dL (3.5-5.0); Alkaline Phosphatase 61 U/L (40-110); Anion Gap 9 mmol/L (10-20); BUN (Urea Nitrogen) 25 mg/dL (8.9-20.6); Bilirubin, Total 0.4 mg/dL (0.2-1.2); Calc. Creatinine Clearance 48 mL/min (70-130); Calcium 9.3 mg/dL (7.8-10.44); Carbon Dioxide 24 mmol/L (22-29); Chloride 107 mmol/L (98-107); Estimated GFR-MDRD 46; Globulin 3.4 g/dL (2.4-3.5); Glucose 82 mg/dL (70-105); Magnesium 1.9 mg/dL (1.6-2.6); Phosphorus 3.7 mg/dL (2.3-4.7); Potassium 4.3 mmol/L (3.5-5.1); Protein, Total 6.8 g/dL (6.0-8.3); Sodium 136 mmol/L (136-145)
[2019-03-27] MEDS: Sodium Chloride 0.9% 1,000 ML IV SCH ×2 (09:00→21:00)
[2019-03-27] MEDS: Carvedilol 25 MG TAB PO SCH ×2 (09:00→20:54)
--- NOTE | 2019-03-27 10:28 | PDOC.GSPN ---
Surgery Progress Note: Subj - Subjective Narrative: Patient feels fine today. He hasn't had much of an appetite but no nausea and his colostomy is functioning normally. No pain to speak of. Vital signs look good. BUN and creatinine are stable but still elevated. Creatinine today is 1.89. He is scheduled for a ureteral stent on the left. I'm going to decrease his TPN. From a surgical standpoint he is basically ready for discharge but he will likely need at least another day of observation for his hydronephrosis Surgery Progress Note: Obj - Vital signs Vital signs: Vital Signs - Most Recent Temp Pulse Resp BP Pulse Ox 98.1 F 71 18 134/84 99 03/27/19 05:16 03/27/19 05:16 03/27/19 05:16 03/27/19 05:16 03/27/19 08:00 Surgery Progress Note: Results - Labs Result Diagrams: 03/27/19 06:10 03/27/19 06:10 Lab results: Laboratory Results - last 24 hr 03/26/19 03/27/19 03/27/19 23:41 05:15 06:10 WBC 6.4 RBC 3.32 L Hgb 10.3 L Hct 31.1 L MCV 93.6 MCH 31.0 MCHC 33.1 RDW 13.4 Plt Count 205 MPV 8.1 Neutrophils % 65.0 Lymphocytes % 18.8 L Monocytes % 11.4 H Eosinophils % 4.5 Basophils % 0.2 Neutrophils # 4.2 Lymphocytes # 1.2 Monocytes # 0.7 H Eosinophils # 0.3 Basophils # 0.0 Sodium Potassium Chloride Carbon Dioxide Anion Gap BUN Creatinine Estimated GFR (MDRD) Glucose POC Glucose 115 H 121 H Calcium Phosphorus Magnesium Total Bilirubin AST ALT Alkaline Phosphatase Serum Total Protein Albumin Globulin Albumin/Globulin Ratio Prealbumin 03/27/19 03/27/19 06:10 06:10 WBC RBC Hgb Hct MCV MCH MCHC RDW Plt Count MPV Neutrophils % Lymphocytes % Monocytes % Eosinophils % Basophils % Neutrophils # Lymphocytes # Monocytes # Eosinophils # Basophils # Sodium 136 Potassium 4.3 Chloride 107 Carbon Dioxide 24 Anion Gap 9 L BUN 25 H Creatinine 1.89 H Estimated GFR (MDRD) 46 Glucose 82 POC Glucose Calcium 9.3 Phosphorus 3.7 Magnesium 1.9 Total Bilirubin 0.4 AST 11 ALT 7 L Alkaline Phosphatase 61 Serum Total Protein 6.8 Albumin 3.4 L Globulin 3.4 Albumin/Globulin Ratio 1.0 L Prealbumin 19.0
[2019-03-27] MEDS ORDERED: POTASSIUM CHLORIDE IV SCH ×2 (14:00)
[2019-03-27] MEDS ORDERED: SODIUM PHOSPHATE IV SCH ×2 (14:00)
[2019-03-27] MEDS ORDERED: SODIUM CHLORIDE IV SCH ×2 (14:00)
[2019-03-27] MEDS ORDERED: Sodium Acetate 2 mEq/ml 40 MEQ, Sodium Chloride 30 MEQ, Potassium Chloride 20 MEQ, Pota... IV SCH (14:00)
[2019-03-27] MEDS ORDERED: [UNRECOGNIZED DRUG - OTHER] IV SCH ×2 (14:00)
[2019-03-27] MEDS: Sodium Acetate 2 mEq/ml 40 MEQ, Sodium Chloride 30 MEQ, Potassium Chloride 20 MEQ, Pota... IV SCH (15:06)
[2019-03-27] MEDS ORDERED: Levofloxacin 500 mg/D5W 100 ml Premix Bag ONE (15:13)
[2019-03-27] MEDS ORDERED: Iothalamate Meglumine 60% 50 ML VIAL FS ONE (16:56)
[2019-03-27] MEDS ORDERED: Fentanyl 100 MCG/2 ML VIAL ONE (17:06)
[2019-03-27] MEDS ORDERED: Promethazine HCl 25 MG/ML VIAL IM PRN (17:52)
[2019-03-27] MEDS ORDERED: PACU-Morphine 4MG/ML VIAL SLOW IVP PRN (17:52)
[2019-03-27] MEDS ORDERED: Morphine Sulfate 2 MG/ML SYRINGE SLOW IVP PRN (17:52)
[2019-03-27] MEDS ORDERED: HYDROmorphone 2 MG/ML VIAL SLOW IVP PRN (17:52)
[2019-03-27] MEDS ORDERED: Promethazine HCl 25 MG/ML VIAL SLOW IVP PRN (17:52)
[2019-03-27] MEDS ORDERED: Ondansetron HCl/PF 4 MG/2 ML Vial IVP PRN (17:52)
--- NOTE | 2019-03-27 17:53 | RAD ---
EXAM: INTRAOPERATIVE FLUOROSCOPY FOR A RETROGRADE IVP: 03/27/19 HISTORY: Stent placement. FINDINGS: Five intraoperative/intraprocedural fluoroscopic images demonstrate retrograde opacification of the l eft intra and extrarenal collecting system. A double pigtail stent is identified. IMPRESSION: Fluoroscopy as above. POS: [facility]
[2019-03-27] MEDS ORDERED: Lidocaine 1% PF 5 ML VIAL ONE (19:06)
[2019-03-27] MEDS ORDERED: PROPOFOL 200 MG/20 ML VIAL ONE (19:06)
[2019-03-27] MEDS ORDERED: Ondansetron PF 4 MG/2 ML Vial ONE (19:06)
[2019-03-27] MEDS: Morphine 4 MG/ML VIAL SLOW IVP PRN (19:45)
[2019-03-27] MEDS: Amlodipine 10 MG TAB PO SCH (19:53)
[2019-03-27] MEDS: cloNIDine 0.1 MG TAB PO SCH ×2 (19:53→20:54)
[2019-03-27] MEDS: Amoxicillin/Potassium Clav 875 MG TAB PO SCH ×2 (19:53→20:54)
[2019-03-27] MEDS: Enoxaparin Sodium 40 MG/0.4 ML SYRINGE SC SCH (19:54)
[2019-03-27] MEDS: metroNIDAZOLE 500 MG TAB PO SCH ×2 (19:54→20:54)
[2019-03-27] MEDS: Famotidine/PF 20 mg/2ml Vial SLOW IVP SCH ×2 (19:54→20:55)
[2019-03-27] MEDS: Famotidine 20 MG TAB PO SCH ×2 (19:54→20:55)
[2019-03-27] MEDS: Losartan 25 MG TAB PO SCH (19:54)
[2019-03-27] MEDS: Pantoprazole 40 MG VIAL IVP SCH (19:55)
[2019-03-27] MEDS: HYDROcodone/Acetaminophen 7.5/325 mg Tablet PO PRN (20:56)
--- NOTE | 2019-03-28 00:32 | OP ---
DATE OF PROCEDURE: 03/27/2019 PREOPERATIVE DIAGNOSES: 1. History of acute diverticulitis, previous intraoperative indwelling ureteral stent requested by General Surgery. 2. Acute renal insufficiency. 3. Left hydronephrosis. 4. History of bilateral punctate renal calculi, nonobstructing. POSTOPERATIVE DIAGNOSES: 1. History of acute diverticulitis, previous intraoperative indwelling ureteral stent requested by General Surgery. 2. Acute renal insufficiency. 3. Left hydronephrosis. 4. History of bilateral punctate renal calculi, nonobstructing. PROCEDURES PERFORMED: Cystoscopy, left retrograde pyelogram, 6 x 26 double-J ureteral stent placement. ANESTHESIA: LMA. COMPLICATIONS: None apparent. INTRAOPERATIVE FINDINGS: 1. No evidence of filling defect or extravasation. Mild left hydronephrosis, there is deviation of the proximal ureter at the level of L5, which is mild. No gross evidence of ureteral stricture. 2. Bilobar coapting lateral lobes with no significant outlet obstruction from BPH. DESCRIPTION OF PROCEDURE: The patient was taken to the operating room, placed in a dorsal lithotomy position with the genital area prepped and draped in the usual surgical sterile fashion. A 22-Cambodian cystoscope was utilized for cystoscopy, which demonstrated normal anterior posterior urethra, bilobar hyperplasia, however, no significant outlet obstruction is noted. The bladder was entered, which demonstrated the UOs in normal anatomical location. The left UO was identified and intubated with a 5-Cambodian open-ended catheter which demonstrated mild hydronephrosis. The proximal ureter at the level of L5-S1 is mildly deviated medially; however, there is no evidence of extravasation of contrast, focal narrowing, filling defect of concern. The open-ended catheter was able to be easily passed to the level above this without significant hang up and a 0.35 Sensor wire was placed into the left mid to upper pole and a 6 x 26 double-J ureteral stent passed. With placement of the stent, there was initial hematuria component, however, subsequently debris was noted. He tolerated procedure well and transported to the recovery room in stable condition. He will be observed with indwelling ureteral stent and monitor for renal function recovery. Toradol is contraindicated as he has been on this in the immediate postop period. We will need diagnostic ureteroscopy in couple of weeks, as hydronephrosis may be due to edema. Job ID: [id number]
[2019-03-28 06:05] LABS: #Eosinphils 0.3 thou/uL (0.0-0.7); #Lymphocytes 1.3 thou/uL (1.20-3.40); #Monocytes 0.6 thou/uL (0.11-0.59); #Neutrophils 3.3 thou/uL (1.40-6.50); %Basophils 0.2 % (0.0-1.0); %Eosinophils 6.1 % (0.0-10.0); %Lymphocytes 22.9 % (21.0-51.0); %Monocytes 11.1 % (0.0-10.0); %Neutrophils 59.7 % (42.0-75.0); Hemoglobin 9.6 g/dL (14.0-18.0); Mean Corpuscular HGB CONC 32.6 g/dL (32.0-36.0); Mean Corpuscular Hemoglobin 30.5 pg (27.0-31.0); Mean Corpuscular Volume 93.5 fL (78.0-98.0); Mean Platelet Volume 8.2 fL (7.4-10.4); Platelet Count 204 thou/uL (130-400); RBC Distribution Width 13.4 % (11.5-14.5); Red Blood Cell (RBC) Count 3.15 mill/uL (4.70-6.10); White Blood Cell (WBC) Count 5.6 thou/uL (4.8-10.8)
[2019-03-28 06:23] LABS: Anion Gap 11 mmol/L (10-20); BUN (Urea Nitrogen) 20 mg/dL (8.9-20.6); Calc. Creatinine Clearance 61 mL/min (70-130); Carbon Dioxide 24 mmol/L (22-29); Chloride 107 mmol/L (98-107); Estimated GFR-MDRD 60; Glucose 88 mg/dL (70-105); Potassium 4.1 mmol/L (3.5-5.1); Sodium 138 mmol/L (136-145)
[2019-03-28] MEDS: Losartan 25 MG TAB PO SCH (08:38)
[2019-03-28] MEDS: Carvedilol 25 MG TAB PO SCH ×2 (08:39→20:41)
[2019-03-28] MEDS: metroNIDAZOLE 500 MG TAB PO SCH ×3 (08:39→20:41)
[2019-03-28] MEDS: Amoxicillin/Potassium Clav 875 MG TAB PO SCH ×2 (08:39→20:41)
[2019-03-28] MEDS: Famotidine 20 MG TAB PO SCH ×2 (08:39→20:41)
[2019-03-28] MEDS: cloNIDine 0.1 MG TAB PO SCH ×2 (08:39→20:40)
[2019-03-28] MEDS: Amlodipine 10 MG TAB PO SCH (08:39)
[2019-03-28] MEDS: Pantoprazole 40 MG VIAL IVP SCH (08:40)
--- NOTE | 2019-03-28 09:45 | PRG ---
DATE OF SERVICE: 03/28/2019 SUBJECTIVE: The patient without complaints. Resolution of left flank pain. OBJECTIVE: VITAL SIGNS: Stable. Urine output 2725, red-tinged. ABDOMEN: Soft. No rigidity. No rebound. No CVA tenderness. PERTINENT LABORATORY DATA: White count 5, hemoglobin 9.6, platelet 204. Creatinine improved to 1.5. IMPRESSION AND PLAN: 1. Mr. Baptiste is a pleasant 48-year-old male with history of diverticulitis, status post intraoperative ureteral stent. 2. Acute renal insufficiency multifactorial with mild hydronephrosis, prior use of Toradol. 3. Bilateral punctate renal lithiasis, nonobstructing. Postop day #1, cysto, left retrograde ureteral stent placement. I informed the patient that in a couple of weeks from now, I would recommend diagnostic ureteroscopy. Please avoid nephrotoxins such as Toradol, outpatient Motrin. will recheck creatinine tomorrow, if it is stable, improved. From urologic perspective, he can be discharged tomorrow. Labs ordered. Job ID: [id number] MTDD
[2019-03-28] MEDS: Enoxaparin Sodium 40 MG/0.4 ML SYRINGE SC SCH (10:36)
[2019-03-28] MEDS: HYDROcodone/Acetaminophen 7.5/325 mg Tablet PO PRN (11:29)
--- NOTE | 2019-03-28 18:40 | PDOC.GSPN ---
Surgery Progress Note: Subj - Subjective Narrative: Patient feels well today. He had some hematuria after the stent was placed which cleared, but he is not having hematuria again. There is no clot and he is not having any problems emptying his bladder. His appetite has improved and he is taking good by mouth. He feels like his urine output is still normal in quantity. His creatinine has come down somewhat. His abdominal incisions are healing well and his colostomy is healthy with stool and gas in the bag. Assessment/plan: Doing well from a surgical standpoint. He is still having some hematuria. I advised him to save the urine and discuss this with Dr. Guy Painter in the morning. I expect that it will likely spontaneously resolve. Surgery Progress Note: Obj - Vital signs Vital signs: Vital Signs - Most Recent Temp Pulse Resp BP Pulse Ox 98.4 F 58 L 14 125/88 99 03/28/19 15:35 03/28/19 15:35 03/28/19 15:35 03/28/19 15:35 03/28/19 15:35 Surgery Progress Note: Results - Labs Result Diagrams: 03/28/19 05:49 03/28/19 05:49 Lab results: Laboratory Results - last 24 hr 03/28/19 12:35 POC Glucose 119 H
[2019-03-28] MEDS: Famotidine/PF 20 mg/2ml Vial SLOW IVP SCH ×2 (19:18→20:41)
[2019-03-28] MEDS: Sodium Chloride 0.9% 1,000 ML IV SCH (19:19)
[2019-03-29 05:46] LABS: Anion Gap 13 mmol/L (10-20); BUN (Urea Nitrogen) 22 mg/dL (8.9-20.6); Calc. Creatinine Clearance 56 mL/min (70-130); Calcium 9.2 mg/dL (7.8-10.44); Carbon Dioxide 23 mmol/L (22-29); Chloride 108 mmol/L (98-107); Estimated GFR-MDRD 55; Glucose 95 mg/dL (70-105); Potassium 4.2 mmol/L (3.5-5.1); Sodium 140 mmol/L (136-145)
--- NOTE | 2019-03-29 07:50 | PRG ---
DATE OF SERVICE: 03/29/2019 SUBJECTIVE: The patient without complaints, vital signs are stable. He did have hematuria as he has concern. I did visualize his urine at bedside. His hematuria tea colored with some red tinged component as expected due to recent stent and Lovenox. His flank pain has resolved. He is making good urine output 2125 over the last 24 hours. Creatinine is 1.6. Highest creatinine on this admission is 1.9. Final urine culture is negative. IMPRESSION AND PLAN: 1. Mr. Baptiste is a 48-year-old male with history of diverticulitis, status post intraoperative stent. 2. Acute renal insufficiency multifactorial with mild hydronephrosis status post stent pull with prior use of Toradol. 3. Bilateral punctate renal lithiasis, nonobstructing. Postop day #2, status post cysto, left retrograde ureteral stent replacement. His renal function is relatively stable and his flank pain is resolved. I do expect his renal function to resolve over the next few days as it is multifactorial. He may be discharged from my perspective with close followup with me next Monday. I informed him that in a few weeks,I would like to proceed with diagnostic ureteroscopy and stent exchange. He is encouraged regarding increase water consumption, cessation of ibuprofen and NSAIDs products and nephrotoxic agents. Appointment will be provided next Monday for followup. Discussed with general surgery, from their perspective I may proceed with diagnostic ureteroscopy Job ID: [id number] MTDD
[2019-03-29 07:57] VITALS: TEMP 98.3
[2019-03-29] MEDS: Famotidine/PF 20 mg/2ml Vial SLOW IVP SCH (09:32)
[2019-03-29] MEDS: metroNIDAZOLE 500 MG TAB PO SCH (09:54)
[2019-03-29] MEDS: Carvedilol 25 MG TAB PO SCH (09:54)
[2019-03-29] MEDS: cloNIDine 0.1 MG TAB PO SCH (09:54)
[2019-03-29] MEDS: Famotidine 20 MG TAB PO SCH (09:55)
[2019-03-29] MEDS: Losartan 25 MG TAB PO SCH (09:55)
[2019-03-29] MEDS: Amoxicillin/Potassium Clav 875 MG TAB PO SCH (09:56)
[2019-03-29] MEDS: Pantoprazole 40 MG VIAL IVP SCH (09:57)
[2019-03-29] MEDS: Amlodipine 10 MG TAB PO SCH (09:58)
[2019-03-29 10:49] VITALS: BP 146/86
[2019-03-29] MEDS: HYDROcodone/Acetaminophen 7.5/325 mg Tablet PO PRN (11:37)
== END 2019-03-29 14:02 | disposition home or self-care (01) | DRG 329 ==
LOC: T4-B 17:06 → SJJU 03-22 16:24
PROVIDERS: ADMIT Surgery; ATTEND Surgery
PROC: 02HV33Z Insertion of Infusion Device into Superior Vena Cava, Percutaneous Approach (ICD-10-PCS; principal; 2019-03-21)
PROC: B548ZZA Ultrasonography of Superior Vena Cava, Guidance (ICD-10-PCS; 2019-03-21)
PROC: 0T778DZ Dilation of Left Ureter with Intraluminal Device, Via Natural or Artificial Opening Endoscopic (ICD-10-PCS; 2019-03-22)
PROC: BT1F1ZZ Fluoroscopy of Left Kidney, Ureter and Bladder using Low Osmolar Contrast (ICD-10-PCS; 2019-03-22)
PROC: 0T9B80Z Drainage of Bladder with Drainage Device, Via Natural or Artificial Opening Endoscopic (ICD-10-PCS; 2019-03-22)
PROC: 0D1M0Z4 Bypass Descending Colon to Cutaneous, Open Approach (ICD-10-PCS; 2019-03-23)
PROC: 0DTNFZZ Resection of Sigmoid Colon, Via Natural or Artificial Opening With Percutaneous Endoscopic Assistance (ICD-10-PCS; 2019-03-23)
PROC: 0DNU4ZZ Release Omentum, Percutaneous Endoscopic Approach (ICD-10-PCS; 2019-03-23)
PROC: 0T778DZ Dilation of Left Ureter with Intraluminal Device, Via Natural or Artificial Opening Endoscopic (ICD-10-PCS; 2019-03-27)
PROC: BT1F1ZZ Fluoroscopy of Left Kidney, Ureter and Bladder using Low Osmolar Contrast (ICD-10-PCS; 2019-03-27)
DX: K57.20 Diverticulitis of large intestine with perforation and abscess without bleeding (principal); K65.1 Peritoneal abscess; N13.2 Hydronephrosis with renal and ureteral calculous obstruction; I10 Essential (primary) hypertension; N40.0 Benign prostatic hyperplasia without lower urinary tract symptoms; Z79.899 Other long term (current) drug therapy; Z90.89 Acquired absence of other organs; Z53.31 Laparoscopic surgical procedure converted to open procedure; Z88.8 Allergy status to other drugs, medicaments and biological substances; N28.9 Disorder of kidney and ureter, unspecified
CPT/HCPCS: 36415; 36416; 36569; 74176; 74177; 74420; 76000; 76770; 80048; 80053; 80061; 81001; 83735; 84100; 84134; 85025; 85610; 85730; 86140; 87086; 88307; A4217; C1751; C1758; C1769; C9113; J0131; J0670; J1100; J1200; J1650; J1885; J1956; J2001; J2250; J2270; J2405; J2543; J2704; J3010; J3475; J3480; J3490; Q9966; S0028

== ENCOUNTER 2019-04-03 13:35 | Outpatient (CLI) | payer SELFPAY ==
[2019-04-03 14:42] LABS: Hemoglobin 10.9 g/dL (14.0-18.0); Mean Corpuscular HGB CONC 32.7 g/dL (32.0-36.0); Mean Corpuscular Hemoglobin 30.2 pg (27.0-31.0); Mean Corpuscular Volume 92.4 fL (78.0-98.0); Mean Platelet Volume 7.1 fL (7.4-10.4); Platelet Count 369 thou/uL (130-400); RBC Distribution Width 13.7 % (11.5-14.5); White Blood Cell (WBC) Count 7.5 thou/uL (4.8-10.8)
[2019-04-03 14:45] LABS: Bilirubin Negative (Negative); Blood, Urine 2+ (Negative); Clarity Turbid (Clear); Glucose, Urine (Dipstick) Normal (Negative); Leukocyte 250 Leu/uL (Negative); Nitrite Negative (Negative); Protein, Urine (Dipstick) 100 mg/dL (Neg-Trace); RBC/HPF Greater than 50 HPF (0-3); Squamous Epithelial 0-3 HPF (0-3); Urobilinogen Normal mg/dL (Less than 2); WBC/HPF 21-50 HPF (0-3)
[2019-04-03 14:47] LABS: INR-International Normal Ratio 1.2; Prothrombin Time 15.2 SEC (12.0-14.7)
[2019-04-03 14:48] LABS: PTT 28.5 SEC (22.9-36.1)
[2019-04-03 14:55] LABS: Bacteria/HPF 1+ HPF (None Seen)
[2019-04-03 15:00] LABS: Anion Gap 12 mmol/L (10-20); BUN (Urea Nitrogen) 12 mg/dL (8.9-20.6); Calc. Creatinine Clearance 0 mL/min (70-130); Calcium 8.7 mg/dL (7.8-10.44); Carbon Dioxide 21 mmol/L (22-29); Chloride 109 mmol/L (98-107); Estimated GFR-MDRD 61; Glucose 90 mg/dL (70-105); Potassium 3.8 mmol/L (3.5-5.1); Sodium 138 mmol/L (136-145)
--- NOTE | 2019-04-03 20:07 | EKG ---
Test Reason : Blood Pressure : / mmHG Vent. Rate : 069 BPM Atrial Rate : 069 BPM P-R Int : 142 ms QRS Dur : 080 ms QT Int : 380 ms P-R-T Axes : 065 051 044 degrees QTc Int : 407 ms Normal sinus rhythm with sinus arrhythmia Moderate voltage criteria for LVH, may be normal variant Borderline ECG When compared with ECG of 21-FEB-2019 16:22, QRS axis Shifted right Nonspecific T wave abnormality no longer evident in Lateral leads Confirmed by MONET LAIRD, SNikunj ([id number]) on 04/03/2019 8:07:37 PM Referred By: GABRIELE Confirmed By:DR. Zoë HEALY MD
== END 2019-04-03 13:36 | disposition home or self-care (01) ==
LOC: LABBT 13:35
PROVIDERS: ATTEND Urology
DX: Z01.818 Encounter for other preprocedural examination (principal); N13.2 Hydronephrosis with renal and ureteral calculous obstruction; N17.9 Acute kidney failure, unspecified
CPT/HCPCS: 80048; 81001; 85027; 85610; 85730; 87086; 93005; 93010

== ENCOUNTER 2019-04-08 09:26 | Day surgery (SDC) | payer OTHER ==
[2019-04-05 15:14] VITALS: BMI 25.2
--- NOTE | 2019-04-08 12:28 | RAD ---
SUPINE ABDOMEN: Date: 04/08/19 HISTORY: Follow-up stent placement. FINDINGS/IMPRESSION: A left ureteral stent is noted in place. There is evidence of tiny calcification overlying the distal stent in the pelvis near the UVJ. No other urinary tract calcification identified. Bowel gas pattern unremarkable. POS: [facility]
[2019-04-08] MEDS ORDERED: Levofloxacin 500 mg/D5W 100 ml Premix Bag ONE (12:37)
[2019-04-08] MEDS ORDERED: Fentanyl 100 MCG/2 ML VIAL ONE (13:01)
[2019-04-08] MEDS ORDERED: Midazolam HCl 2 mg/2 ml Vial ONE (13:01)
[2019-04-08] MEDS ORDERED: Rocuronium Bromide 10 MG/ML (10ML VIAL) ONE (13:20)
[2019-04-08] MEDS ORDERED: Dexamethasone 20 MG/5 ML VIAL ONE (13:20)
[2019-04-08] MEDS ORDERED: Glycopyrrolate 0.2 MG/ML 5 ML SYRINGE ONE (13:20)
[2019-04-08] MEDS ORDERED: PROPOFOL 200 MG/20 ML VIAL ONE (13:20)
[2019-04-08] MEDS ORDERED: Ondansetron PF 4 MG/2 ML Vial ONE (13:20)
[2019-04-08] MEDS ORDERED: Phenazopyridine HCl 97.5 MG TABLET ONE (14:55)
[2019-04-08] MEDS ORDERED: Oxybutynin 5 MG TAB ONE (14:55)
[2019-04-08] MEDS ORDERED: HYDROcodone/Acetaminophen 5/325 mg Tablet ONE (15:47)
--- NOTE | 2019-04-08 15:52 | RAD ---
INTRAOPERATIVE FLUOROSCOPY: HISTORY: Retrograde IVP. COMPARISON: None. FINDINGS: Ten fluoroscopic views are submitted for interpretation. There is retrograde opacification of both in trarenal and extrarenal collecting systems. There is evidence of a double J left ureteral stent. IMPRESSION: Intraprocedural fluoroscopy as above. POS: [facility]
--- NOTE | 2019-04-08 17:26 | OP ---
DATE OF PROCEDURE: 04/08/2019 PREOPERATIVE DIAGNOSES: 1. History of diverticulitis. 2. History of left intraoperative ureteral stent for colectomy with subsequent hydronephrosis. POSTOPERATIVE DIAGNOSES: 1. History of diverticulitis. 2. History of left intraoperative ureteral stent for colectomy with subsequent hydronephrosis. PROCEDURES PERFORMED: 1. Cystoscopy. 2. Bilateral retrograde pyelogram. 3. Diagnostic left ureteroscopy and pyeloscopy. 4. 6 x 26 double-J ureteral stent exchange. ANESTHESIA: General. COMPLICATIONS: None apparent. DISPOSITION: To recovery room in stable condition. INTRAOPERATIVE FINDINGS: 1. No evidence of urethral stricture. 2. No evidence of significant outlet obstruction from BPH component. 3. Bladder grossly unremarkable. 4. Right retrograde pyelogram demonstrating deviation of the distal ureter at the level of S3-S4 ureter with no gross functional obstruction as there was prompt excretion of contrast, no evidence of right ureteral stricture or functional obstruction. 5. Left ureteroscopy and pyeloscopy negative for stricture or obstructing stone. 6. Left Neptali's plaque, multiple with no gross evidence of free-floating left calyceal stone of concern. DESCRIPTION OF PROCEDURE: Mr. Baptiste was taken to the operating room, placed in a dorsal lithotomy position with the genital area prepped and draped in the usual surgical sterile fashion. Broad-spectrum antibiotics were provided. A 22- Luxembourgish cystoscope was utilized for cystoscopy, which demonstrated normal anterior and posterior urethra without evidence of urethral stricture, outlet obstruction. Bilobar coapting lateral lobes with no significant outlet obstruction were noted. Bladder was entered, which demonstrated no evidence of bladder stones. The UOs were identified in normal orthotopic position. We performed the right retrograde pyelogram first, which demonstrated no evidence of hydronephrosis; however, there was a medially deviated ureter at the level of the S2-S3 level. There did not appear to be any obvious stricture in this area nor filling defect. It appears to be extrinsic mass effect causing deviation of the ureter without evidence of hydronephrosis as there was prompt excretion of contrast. Intraoperative fluoroscopy was taken, which demonstrated good excretion of contrast from the right collecting system. At this time, we removed his left ureteral stent. A 0.035 Sensor wire was passed through the stent. A 10-Luxembourgish dual-lumen access sheath was then utilized for retrograde pyelogram, which demonstrated no evidence of hydronephrosis or filling defect. Using a 0.035 Super Stiff wire was placed into the left upper pole through the dual-lumen. The dual-lumen access sheath was then subsequently removed and a flexible ureteroscope disposable camera was then passed through the Super Stiff wire under guidewire assist to the level of the renal pelvis. The wire was then subsequently removed and we performed the pyeloscopy and ureteroscopy. Pyeloscopy failed to demonstrate any calyceal free-floating stone of concern. There were multiple Neptali plaques, consistent with the CT scan; however, no stones within the collecting system amendable to treatment. At this time, the ureter was surveyed, which demonstrated no evidence of mucosal edema, clots, stricture, stones, or foreign bodies of concern. We replaced a 6 x 26 stent uneventfully and a guidewire was subsequently removed. Distal tail was left in situ. I looked at the intraoperative films again on the right retrograde pyelogram, there appeared to be no functional obstruction with prompt excretion of contrast. Therefore, we did not place a right ureteral stent. He will return to clinic on 04/18 to remove his left ureteral stent. He was provided ciprofloxacin to cover him until the cysto stent pull under local in a week. At a later date, my plan is to perform an IVP versus a Lasix renal scan to monitor his renal function and moiety. As there was no evidence of functional obstruction on right side, we will continue to watch his renal function. Job ID: [id number] [facility]
== END 2019-04-08 16:05 | disposition home or self-care (01) ==
LOC: SDC 09:26 → EEVIPCON 17:00
PROVIDERS: ATTEND Urology
PROC: 0T777DZ Dilation of Left Ureter with Intraluminal Device, Via Natural or Artificial Opening (ICD-10-PCS; principal; 2019-04-08)
PROC: 0TP97DZ Removal of Intraluminal Device from Ureter, Via Natural or Artificial Opening (ICD-10-PCS; principal; 2019-04-08)
DX: Z46.6 Encounter for fitting and adjustment of urinary device (principal); N28.89 Other specified disorders of kidney and ureter; N40.0 Benign prostatic hyperplasia without lower urinary tract symptoms; I10 Essential (primary) hypertension; F17.210 Nicotine dependence, cigarettes, uncomplicated; Z79.899 Other long term (current) drug therapy; Z88.8 Allergy status to other drugs, medicaments and biological substances; Z90.49 Acquired absence of other specified parts of digestive tract
CPT/HCPCS: 74018; 74420; C1758; C1769; J1100; J1956; J2250; J2405; J2704; J3010

== ENCOUNTER 2020-03-17 06:56 | Outpatient (CLI) | payer OTHER ==
[2020-03-17 11:20] LABS: Hemoglobin A1c 5.6 % (4.0-6.0)
[2020-03-17 11:26] LABS: #Eosinphils 0.3 thou/uL (0.0-0.7); #Lymphocytes 1.6 thou/uL (1.20-3.40); #Monocytes 0.7 thou/uL (0.11-0.59); #Neutrophils 3.3 thou/uL (1.40-6.50); %Basophils 0.7 % (0.0-1.0); %Eosinophils 5.3 % (0.0-10.0); %Lymphocytes 27.4 % (21.0-51.0); %Monocytes 11.2 % (0.0-10.0); %Neutrophils 55.4 % (42.0-75.0); Hemoglobin 13.9 g/dL (14.0-18.0); Mean Corpuscular HGB CONC 31.8 g/dL (32.0-36.0); Mean Corpuscular Hemoglobin 31.1 pg (27.0-31.0); Mean Corpuscular Volume 97.9 fL (78.0-98.0); Platelet Count 199 thou/uL (130-400); RBC Distribution Width 13.2 % (11.5-14.5); Red Blood Cell (RBC) Count 4.47 mill/uL (4.70-6.10); White Blood Cell (WBC) Count 5.9 thou/uL (4.8-10.8)
[2020-03-17 11:49] LABS: ALT (SGPT) 40 U/L (8-55); AST (SGOT) 38 U/L (5-34); Albumin 4.6 g/dL (3.5-5.0); Alkaline Phosphatase 78 U/L (40-110); Anion Gap 16 mmol/L (10-20); BUN (Urea Nitrogen) 16 mg/dL (8.9-20.6); Bilirubin, Total 0.5 mg/dL (0.2-1.2); Calc. Creatinine Clearance 0 mL/min (70-130); Calcium 9.4 mg/dL (7.8-10.44); Carbon Dioxide 24 mmol/L (22-29); Chloride 108 mmol/L (98-107); Estimated GFR-MDRD 62; Globulin 2.9 g/dL (2.4-3.5); Glucose 104 mg/dL (70-105); Potassium 4.8 mmol/L (3.5-5.1); Protein, Total 7.5 g/dL (6.0-8.3); Sodium 143 mmol/L (136-145)
[2020-03-17 16:40] LABS: SARS-CoV-2 MS2 Positive; SARS-CoV-2 N Gene Negative; SARS-CoV-2 S Gene Negative; SARS-CoV-2 by NAA Not Detected (NotDetected); SARS-CoV-2 orf1ab Negative
--- NOTE | 2020-03-18 10:23 | EKG ---
Test Reason : PREOP Blood Pressure : / mmHG Vent. Rate : 059 BPM Atrial Rate : 059 BPM P-R Int : 154 ms QRS Dur : 078 ms QT Int : 398 ms P-R-T Axes : 070 003 015 degrees QTc Int : 394 ms Sinus bradycardia Septal infarct , age undetermined Abnormal ECG No previous ECGs available Confirmed by KYREE LUONG M.D. ([id number]) on 03/18/2020 10:23:35 AM Referred By: Ventura ENG Confirmed By:KYREE LUONG M.D.
== END 2020-03-17 06:57 | disposition home or self-care (01) ==
LOC: LABBT 06:56
PROVIDERS: ATTEND Surgery
DX: Z01.818 Encounter for other preprocedural examination (principal); Z20.828 Contact with and (suspected) exposure to other viral communicable diseases; Z93.3 Colostomy status
CPT/HCPCS: 80053; 83036; 85025; 87635; 93005; 93010; U0003

== ENCOUNTER 2020-03-17 09:00 | Inpatient (IN) | payer SELFPAY ==
[2020-03-20] MEDS ORDERED: Fentanyl 100 MCG/2 ML VIAL ONE ×4 (10:39→17:03)
[2020-03-20] MEDS ORDERED: Midazolam HCl 2 mg/2 ml Vial ONE (10:39)
[2020-03-20] MEDS ORDERED: cefOXitin Sodium/Dextrose 2 GM/50 ML BAG ONE (10:42)
[2020-03-20] MEDS ORDERED: PHENYLEPHRINE-NS 100 MCG/ML 10 ML SYRINGE ONE (11:38)
[2020-03-20] MEDS ORDERED: Rocuronium Bromide 10 MG/ML (10ML VIAL) ONE ×2 (11:38→11:39)
[2020-03-20] MEDS ORDERED: Bupivacaine HCl 0.5%/Epinephrine 1:200,000/PF 30 ml Vial ONE (11:38)
[2020-03-20] MEDS ORDERED: EPHEDRINE 25 MG/5 ML SYRINGE ONE (11:38)
[2020-03-20] MEDS ORDERED: Lidocaine 1% PF 5 ML VIAL ONE (11:39)
[2020-03-20] MEDS ORDERED: PROPOFOL 200 MG/20 ML VIAL ONE (11:39)
[2020-03-20] MEDS ORDERED: Dexamethasone 20 MG/5 ML VIAL ONE (11:40)
[2020-03-20] MEDS ORDERED: Lidocaine 1% w/Epinephrine 1:100K 20 ML VIAL ONE (11:42)
[2020-03-20] MEDS ORDERED: Bupivacaine 0.25% HCL 30 ML VIAL ONE (11:42)
--- NOTE | 2020-03-20 13:48 | OP ---
DATE OF PROCEDURE: 03/20/2020 PROCEDURE PERFORMED: Colonoscopy with snare polypectomy. PREOPERATIVE DIAGNOSES: Colon screening and preoperative colonoscopy before colostomy takedown, which is to be done following this procedure directly by Dr. Regalado. DESCRIPTION OF PROCEDURE: Informed consent was obtained. The patient was sedated with total intravenous anesthesia. The colostomy bag was removed, and the colonoscope was advanced through the colostomy to the cecum, where the ileocecal valve and appendiceal orifice were clearly identified. The preparation quality was adequate. I removed a 3 mm polyp from the hepatic flexure by cold snare polypectomy. I removed a 6 mm polyp from the transverse colon by cold snare polypectomy. There was mild diverticulosis in the descending colon. The patient was turned around, and rectal exam was performed and it was unremarkable. The colonoscope was advanced to the top of the sigmoid pouch. Again, there was mild diverticulosis in the remaining sigmoid. I removed two polyps measuring 3 mm and 4 mm from the rectum by cold snare polypectomy. Retroflexed views in the rectum revealed moderate internal hemorrhoids. I did exchange for an upper endoscope to better view the distal sigmoid from the anal approach. RECOMMENDATIONS: 1. Await histopathology. 2. Surveillance colonoscopy, timing to be determined by the histopathology. 3. He will proceed to follow through with colostomy takedown this afternoon with Dr. Regalado. Job ID: [id number]
[2020-03-20] MEDS ORDERED: ceFOXitin 1 GM VIAL ONE (14:34)
[2020-03-20] MEDS ORDERED: Labetalol HCl 100 MG/20 ML VIAL ONE (16:47)
[2020-03-20] MEDS ORDERED: Promethazine HCl 25 MG/ML VIAL IM PRN (17:05)
[2020-03-20] MEDS ORDERED: Morphine 2 MG/ML VIAL SLOW IVP PRN (17:05)
[2020-03-20] MEDS ORDERED: hydrALAZINE 20 MG/ML VIAL SLOW IVP PRN (17:05)
[2020-03-20] MEDS ORDERED: Ondansetron PF 4 MG/2 ML Vial IVP PRN (17:05)
[2020-03-20] MEDS ORDERED: Morphine 4 MG/ML VIAL SLOW IVP PRN (17:19)
[2020-03-20] MEDS: Ketorolac Tromethamine 30 MG/ML VIAL IVP SCH ×2 (18:22→23:40)
[2020-03-20] MEDS: Carvedilol 25 MG TAB PO SCH (20:18)
[2020-03-20] MEDS: Famotidine 20 MG TAB PO SCH (20:18)
[2020-03-20] MEDS: cloNIDine 0.1 MG TAB PO SCH (20:18)
[2020-03-20] MEDS ORDERED: Carvedilol 25 MG TAB PO SCH (21:00)
[2020-03-20] MEDS ORDERED: cloNIDine 0.1 MG TAB PO SCH (21:00)
[2020-03-20] MEDS ORDERED: Famotidine/PF 20 mg/2ml Vial SLOW IVP SCH (21:00)
[2020-03-20] MEDS ORDERED: Baclofen 10 MG TAB PO SCH (21:30)
[2020-03-20 22:02] LABS: #Lymphocytes 0.8 thou/uL (1.20-3.40); #Monocytes 0.5 thou/uL (0.11-0.59); #Neutrophils 7.8 thou/uL (1.40-6.50); %Eosinophils 0.1 % (0.0-10.0); %Lymphocytes 8.6 % (21.0-51.0); %Monocytes 5.9 % (0.0-10.0); %Neutrophils 85.5 % (42.0-75.0); Hemoglobin 13.6 g/dL (14.0-18.0); Mean Corpuscular HGB CONC 31.7 g/dL (32.0-36.0); Mean Corpuscular Hemoglobin 31.4 pg (27.0-31.0); Mean Corpuscular Volume 99.2 fL (78.0-98.0); Mean Platelet Volume 8.7 fL (7.4-10.4); Platelet Count 180 thou/uL (130-400); RBC Distribution Width 13.3 % (11.5-14.5); Red Blood Cell (RBC) Count 4.33 mill/uL (4.70-6.10); White Blood Cell (WBC) Count 9.1 thou/uL (4.8-10.8)
[2020-03-20 22:22] LABS: ALT (SGPT) 38 U/L (8-55); AST (SGOT) 31 U/L (5-34); Albumin 3.8 g/dL (3.5-5.0); Alkaline Phosphatase 70 U/L (40-110); Anion Gap 14 mmol/L (10-20); BUN (Urea Nitrogen) 15 mg/dL (8.9-20.6); Bilirubin, Total 0.4 mg/dL (0.2-1.2); Calc. Creatinine Clearance 61 mL/min (70-130); Carbon Dioxide 19 mmol/L (22-29); Chloride 113 mmol/L (98-107); Estimated GFR-MDRD 53; Globulin 3.1 g/dL (2.4-3.5); Glucose 108 mg/dL (70-105); Magnesium 1.9 mg/dL (1.6-2.6); Potassium 4.7 mmol/L (3.5-5.1); Protein, Total 6.9 g/dL (6.0-8.3); Sodium 141 mmol/L (136-145)
[2020-03-20 22:52] VITALS: BMI 29.5
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
[2020-03-20] MEDS: D5 1/2 NS w/20 mEq KCL 1,000 ML IV SCH (23:47)
[2020-03-20] MEDS: cefOXitin Sodium/Dextrose,Iso 2 GM in Premix Bag 1 BAG IVPB SCH (23:48)
[2020-03-21] MEDS: Morphine 4 MG/ML VIAL SLOW IVP PRN ×6 (00:24→21:04)
[2020-03-21] MEDS: D5 1/2 NS w/20 mEq KCL 1,000 ML IV SCH ×3 (01:40→22:19)
[2020-03-21] MEDS ORDERED: cloNIDine 0.1 MG TAB PO SCH (02:45)
[2020-03-21] MEDS: Ketorolac Tromethamine 30 MG/ML VIAL IVP SCH ×3 (06:24→19:01)
[2020-03-21 08:07] LABS: Anion Gap 12 mmol/L (10-20); BUN (Urea Nitrogen) 14 mg/dL (8.9-20.6); Calc. Creatinine Clearance 73 mL/min (70-130); Calcium 7.6 mg/dL (7.8-10.44); Carbon Dioxide 18 mmol/L (22-29); Chloride 114 mmol/L (98-107); Estimated GFR-MDRD 63; Glucose 125 mg/dL (70-105); Potassium 4.1 mmol/L (3.5-5.1); Sodium 140 mmol/L (136-145)
[2020-03-21 08:12] LABS: #Lymphocytes 1.2 thou/uL (1.20-3.40); #Monocytes 0.6 thou/uL (0.11-0.59); #Neutrophils 4.9 thou/uL (1.40-6.50); %Basophils 0.3 % (0.0-1.0); %Eosinophils 0.7 % (0.0-10.0); %Lymphocytes 17.7 % (21.0-51.0); %Monocytes 8.9 % (0.0-10.0); %Neutrophils 72.4 % (42.0-75.0); Hemoglobin 12.5 g/dL (14.0-18.0); Mean Corpuscular HGB CONC 31.8 g/dL (32.0-36.0); Mean Corpuscular Hemoglobin 32.1 pg (27.0-31.0); Mean Platelet Volume 9.2 fL (7.4-10.4); Platelet Count 151 thou/uL (130-400); RBC Distribution Width 13.4 % (11.5-14.5); Red Blood Cell (RBC) Count 3.89 mill/uL (4.70-6.10); White Blood Cell (WBC) Count 6.8 thou/uL (4.8-10.8)
[2020-03-21] MEDS ORDERED: cefOXitin Sodium/Dextrose,Iso 2 GM in Premix Bag 1 BAG IVPB SCH (08:45)
--- NOTE | 2020-03-21 08:48 | PDOC.HOSPP ---
- Subjective Encounter Date: 03/21/20 Encounter Time: 08:00 Subjective: no abd pain or nausea no flatus or bm yet feels better - Objective Vital Signs & Weight: Vital Signs (12 hours) Temp Pulse Resp BP BP Pulse Ox 03/21/20 07:43 98.5 F 60 18 106/70 99 03/21/20 03:45 154/100 H 03/21/20 03:00 98.5 F 60 18 154/100 H 106 H 03/20/20 23:28 98.3 F 76 18 151/95 H 98 Weight Weight 183 lb 4.8 oz I&O: 03/20/20 03/21/20 03/22/20 06:59 06:59 06:59 Intake Total 200 Output Total 900 Balance -700 Result Diagrams: 03/21/20 07:26 03/21/20 07:26 Additional Labs: Accuchecks 03/20/20 03/20/20 17:02 10:23 POC Glucose 123 H 97 Hospitalist ROS - Medication Medications: Active Medications Generic Name Dose Route Start Last Admin Trade Name Freq PRN Reason Stop Dose Admin Carvedilol 25 mg 03/20/20 21:00 03/20/20 20:18 Carvedilol 25 Mg Tab PO 25 mg BID LAKEISHA Administration Clonidine 0.1 mg 03/20/20 21:00 03/20/20 20:18 Clonidine 0.1 Mg Tab PO 0.1 mg BID LAKEISHA Administration Famotidine 20 mg 03/20/20 21:00 03/20/20 20:18 Famotidine 20 Mg Tab PO 20 mg Q12HR LAKEISHA Administration Potassium Chloride/Dextrose/Sod Cl 1,000 mls @ 120 mls/hr 03/20/20 17:15 03/21/20 01:40 D5 1/2 Ns W/20 Meq Kcl IV Not Given .Q8H20M LAKEISHA Ketorolac Tromethamine 15 mg 03/20/20 18:00 03/21/20 06:24 Ketorolac Tromethamine 30 Mg/Ml Vial IVP 03/23/20 18:01 15 mg Q6HR LAKEISHA Administration Morphine Sulfate 4 mg 03/20/20 17:05 03/21/20 06:23 Morphine 4 Mg/Ml Vial SLOW IVP 4 mg Q2H PRN Administration Moderate Pain (4-6) Morphine Sulfate 6 mg 03/20/20 17:19 03/20/20 20:19 Morphine 4 Mg/Ml Vial SLOW IVP 6 mg Q2H PRN Administration Severe Pain (7-10) - Exam General Appearance: awake alert Eye: PERRL, anicteric sclera ENT: no oropharyngeal lesions, dry oral mucosa Neck: supple, no JVD Heart: RRR, no murmur Respiratory: no wheezes, no rales Gastrointestinal: soft, non-distended Extremities: no cyanosis, no edema Neurological: cranial nerve grossly intact, no focal deficits Psychiatric: normal affect, A&O x 3 Hosp A/P (1) HTN (hypertension) Code(s): I10 - ESSENTIAL (PRIMARY) HYPERTENSION Status: Acute (2) Tobacco abuse Code(s): Z72.0 - TOBACCO USE Status: Chronic (3) s/p colostomy reversal Status: Acute (4) H/O diverticulitis of colon Code(s): Z87.19 - PERSONAL HISTORY OF OTHER DISEASES OF THE DIGESTIVE SYSTEM Status: Chronic - Plan continue current htn meds including coreg, clonidine, cozaar, norvasc watch for renal function is on iv fluids, npo is ambulating in [facility]
[2020-03-21] MEDS ORDERED: Amlodipine 10 MG TAB PO SCH (09:00)
[2020-03-21] MEDS ORDERED: Enoxaparin Sodium 40 MG/0.4 ML SYRINGE SC SCH ×2 (09:00→17:45)
[2020-03-21] MEDS ORDERED: Losartan 25 MG TAB PO SCH (09:00)
--- NOTE | 2020-03-21 10:08 | PDOC.OP ---
Operative Note - Operative Note Operative Note: PROCEDURE: Laparoscopic hand-assisted colostomy takedown with splenic flexure mobilization SURGEON: Kadi Regalado M.D. DATE: 03/20/2020 PREOPERATIVE DIAGNOSIS: Unwanted colostomy status post David procedure for severe diverticulitis POSTOPERATIVE DIAGNOSIS: Unwanted colostomy status post David procedure for severe diverticulitis HISTORY: Patient with severe diverticulitis status post David procedure. He presents for colostomy takedown. He underwent a screening colonoscopy immediately before his colostomy takedown with removal of 4 polyps. No other abnormalities were seen except for scattered diverticula. FINDINGS: Small caliber descending colon excepting only up to a 25 mm sizer. Anastomosis created with a 25 mm EEA stapler. PROCEDURE IN DETAIL: After informed consent was obtained and appropriate bowel preparation and oral and IV antibiotics were administered the patient was taken to the operating room where he was placed in supine position and general endotracheal anesthesia was continued. The colostomy was closed at the level of the skin with a running locking silk suture. He was placed in lithotomy position and prepped and draped in standard sterile fashion, excluding the colostomy site from the rest of the operative field with a Tegaderm. Local anesthesia was infused the skin and subcutaneous tissues at the periumbilical area and a 6 cm incision made. Dissection was carried down to the fascia which was incised under direct vision. The peritoneal cavity was entered and omental adhesions noted. These were taken down under direct vision for several centimeters around the wound. He did have extensive omental adhesions to the upper abdomen these were not immediately taken down. A wound protector and GelPort were placed and carbon dioxide gas insufflated to an intra-abdominal pressure 15 which the patient tolerated well. 5 mm trochars were placed in the right and left lateral abdomen under direct laparoscopic vision and the omental adhesions in the upper abdomen dissected free to the midline for placement of an epigastric trocar under direct laparoscopic vision. The adhesions in the upper abdomen contain primarily omentum but there were some loops of bowel seen within the omental adhesions. These do not appear obstructed in any way. Was felt that the risk of taking these adhesions down completely was not justified as these were chronic nonobstructing adhesions, so the adhesions in the right upper abdomen were not disturbed. The descending colon had been previously mobilized to about the mid abdomen. The white line of Toldt was identified and the upper portion of the descending colon was mobilized to the level of the splenic flexure following which the entire descending colon was very mobile. The rectal stump was identified and some adhesions to the anterior abdominal wall taken down through the avascular plane to completely expose the stump. The Tegaderm was removed from the colostomy site and a transverse elliptical incision made. Dissection was carried down mobilizing the entire colostomy which was then passed to the midline wound protector and externalized. The internal and external rectus sheath were closed with a running 0 PDS suture under direct vision with excellent technical result. The externalized portion of the colostomy was resected and sizers used to interrogate the descending colon. The caliber was rather small and the descending colon would only except up to a 25 mm sizer. Therefore a 25 mm EEA was selected. Emerging suture was placed around the end of the descending colon and the anvil placed within the colon and the pursestring suture secured. The rectal stump easily excepted all of the sizers to the end of the pouch. A 25 mm EEA stapler was then passed to the end of the rectal stump and the spike advanced through the end of the rectum just above the staple line. This was mated to the anvil and the stapler was closed and fired. The EEA stapler was then removed and 2 full-thickness donuts were confirmed on the back table. Saline was instilled into the pelvis and a proctoscope placed into the distal rectum and air insufflated into the rectum with the descending colon digitally clamped, distending the staple line with gas. No bubbling was seen from the staple line which appeared entirely healthy. The saline was then suctioned out of the pelvis and the small intestine returned to its normal anatomic position. The omentum was drawn down over the small bowel. The operative site was carefully examined and hemostasis verified. The 5 mm trocars were removed and hemostasis verified. The GelPort and wound protector were removed and Seprafilm placed anterior to the omentum. The fascia was closed with a running PDS suture. The wound was copiously irrigated and the skin was closed with running subcuticular Monocryl sutures at the midline incision and trocar sites. The colostomy site was reapproximated at intervals with subcutaneous 3-0 Monocryl sutures and 4-0 subcuticular sutures and Telfa effie placed into the subcutaneous tissues. This wound was dressed with gauze and Tegaderm. Dermabond dressings were placed to the other incisions and the patient was extubated and taken to recovery in good condition. Estimated blood loss was minimal. There were no complications. There were no specimens.
[2020-03-21] MEDS: cefOXitin Sodium/Dextrose,Iso 2 GM in Premix Bag 1 BAG IVPB SCH (10:35)
--- NOTE | 2020-03-21 10:39 | PDOC.GSPN ---
Surgery Progress Note: Subj - Subjective Narrative: Patient is feeling okay this morning. He has some incisional pain which is tolerable. He is not nauseated. He has not passed any flatus yet. He is ambulating in the halls. His incisions look good. He has some serosanguineous drainage on the external colostomy dressing which was changed. He is afebrile. Blood pressure was elevated postoperatively but better this morning. BUN and creatinine are down slightly this morning. These have been moderately elevated for some time, slightly worse since his Rios's procedure this summer. He did develop some hydronephrosis postoperatively requiring replacement of his ureteral stent which was subsequently removed. He is not having any flank pain. He has not followed-up with urology since then. He has not seen a television picture tube rebuilder either. Assessment/plan: #1: Status post colostomy takedown doing well from this. Sips of clears today. Continue to ambulate. Abdominal binder when up. #2: Chronic renal insufficiency, slightly worse since his sigmoid colectomy this summer and fairly stable since then. He did have severe inflammation of the retroperitoneum and developed some hydronephrosis on the left requiring ureteral stenting. There was no ureteral injury or focal stricture but he has not followed up with urology. He has also not seen a television picture tube rebuilder as his access to healthcare is limited due to his financial situation. I am going to order a renal ultrasound, with evaluation of renal artery velocities if possible given his severe hypertension. I am also going to ask nephrology to see him as I feel that he is high risk for worsening renal failure due to severe hypertension and should establish care with a television picture tube rebuilder for long-term follow-up. Surgery Progress Note: Obj - Vital signs Vital signs: Vital Signs - Most Recent Temp Pulse Resp BP Pulse Ox 98.5 F 60 18 106/70 99 03/21/20 07:43 03/21/20 07:43 03/21/20 07:43 03/21/20 07:43 03/21/20 07:43 Surgery Progress Note: Results - Labs Result Diagrams: 03/21/20 07:26 03/21/20 07:26 Lab results: Laboratory Results - last 24 hr 03/21/20 03/21/20 07:26 07:26 WBC 6.8 RBC 3.89 L Hgb 12.5 L Hct 39.3 L MCV 101.0 H MCH 32.1 H MCHC 31.8 L RDW 13.4 Plt Count 151 MPV 9.2 Neutrophils % 72.4 Lymphocytes % 17.7 L Monocytes % 8.9 Eosinophils % 0.7 Basophils % 0.3 Neutrophils # 4.9 Lymphocytes # 1.2 Monocytes # 0.6 H Eosinophils # 0.0 Basophils # 0.0 Sodium 140 Potassium 4.1 Chloride 114 H Carbon Dioxide 18 L Anion Gap 12 BUN 14 Creatinine 1.43 H Estimated GFR (MDRD) 63 Glucose 125 H Calcium 7.6 L
[2020-03-21] MEDS: Carvedilol 25 MG TAB PO SCH ×2 (10:47→21:01)
[2020-03-21] MEDS: Losartan 25 MG TAB PO SCH (15:00)
[2020-03-21] MEDS: cloNIDine 0.1 MG TAB PO SCH ×2 (15:01→21:01)
[2020-03-21] MEDS: Amlodipine 10 MG TAB PO SCH (15:01)
--- NOTE | 2020-03-21 15:03 | ULT ---
EXAM: BILATERAL RENAL ULTRASOUND COMPLETE INCLUDING COLOR AND SPECTRAL DOPPLER IMAGIN03/21/20 COMPARISON: 03/25/19. FINDINGS: The right kidney measures 10.8 x 4.6 x 4.3 cm. The left kidney measures 12.1 x 5.5 x 4.8 cm. No evide nce for renal hydronephrosis. The urinary bladder appears unremarkable. Vascular duplex with color and spectral Doppler imaging: No significant abnormal renal artery velocities. Right renal artery/aortic ratio at 1.5. Left renal a rtery/aortic ratio of 0.9, both within normal limits. Right resistive index 0.64. Left resistive inde x 0.74 which is borderline elevated. IMPRESSION: Borderline elevated left resistive index. No significant abnormal renal artery velocities. If renal artery stenosis remains a strong clinical concern, follow-up CT angiogram of the abdominal a sho and renal arteries should be considered. POS: OFF
[2020-03-21] MEDS ORDERED: Acetaminophen 650 MG Suppository PR PRN (17:06)
[2020-03-21] MEDS ORDERED: HYDROcodone/Acetaminophen 7.5/325 mg Tablet PO PRN (17:06)
[2020-03-21] MEDS: Famotidine 20 MG TAB PO SCH ×2 (17:33→21:02)
--- NOTE | 2020-03-22 01:39 | CON ---
DATE OF CONSULTATION: REQUESTING PHYSICIAN: Dr. Regalado. REASON FOR CONSULTATION: Multiple drug-resistant hypertension. IMPRESSION: 1. Multiple drug-resistant hypertension, query cause. This might be secondary hypertension to chronic kidney disease in the context of continuing tobacco abuse. 2. Metabolic acidosis. 3. Chronic kidney disease stage 3. 4. Tobacco abuse. 5. Questionable medication compliance. PLAN: 1. For a patient with questionable medication compliance, clonidine is not a good choice due to the unforgiving nature of this medication in the context of rebound hypertension. Therefore, we will work towards getting this patient off clonidine entirely. 2. In order to increase the compliance of this patient's medications with simpler dosing regimen, I recommended we will start this patient on minoxidil, discontinue clonidine, and will possibly cut back on other antihypertensive medications when minoxidil kicks in. 3. Renally dose all medications. 4. Extensive counseling to this patient and to discontinue tobacco use. 5. Further management to be dependent on the clinical course. 6. Discontinue current IV fluids. 7. Outpatient Nephrology followup, status post discharge strongly recommend. HISTORY OF PRESENT ILLNESS: History is that of a 49-year-old gentleman who presented here for colostomy takedown. The patient noted to have severely elevated blood pressure and on multiple medications up to 4 medications with questionable compliance. As a result of these findings, decision has been taken to involve Renal in the management of this case. Ultrasound of the kidney suspicious for renal artery stenosis, but not fully compliant. The patient has been smoking for some time and does have significant family history of kidney failure. PAST MEDICAL HISTORY: Significant for hypertension, diverticulitis, tobacco abuse. MEDICATIONS: Reviewed and as documented on [employer]. SOCIAL HISTORY: Significant for tobacco use for several years now. FAMILY HISTORY: Significant for kidney disease in the mother and grandmother, both on dialysis. ALLERGIES: TO LISINOPRIL. MEDICATIONS: Have been reviewed and as documented on [employer]. PHYSICAL EXAMINATION: GENERAL: The patient was found not to be in any obvious distress noted. VITAL SIGNS: Afebrile, temperature 98.2, pulse 63, respiratory rate of 18, O2 saturation of 99% with blood pressure of 171 to 186 over 96. HEENT: Unremarkable. CARDIOVASCULAR SYSTEM: First and second heart sounds were heard. RESPIRATORY SYSTEM: Clear to auscultation. DIGESTIVE SYSTEM: Revealed positive bowel sounds. EXTREMITIES: No peripheral edema. SKIN: No new gross rash. LYMPHATICS: No peripheral lymphadenopathy. SUMMARY: A 49-year-old gentleman with multidrug-resistant hypertension. The patient likely to benefit from some form of diuretics to augment the effect of the current antihypertensive regimen. Job ID: [id number]
[2020-03-22] MEDS: Amlodipine 10 MG TAB PO SCH (08:08)
[2020-03-22] MEDS: Carvedilol 25 MG TAB PO SCH (08:09)
[2020-03-22] MEDS: Minoxidil 10 MG TAB PO SCH (08:09)
[2020-03-22] MEDS: Losartan 25 MG TAB PO SCH (08:09)
[2020-03-22] MEDS: HYDROcodone/Acetaminophen 7.5/325 mg Tablet PO PRN (08:09)
[2020-03-22] MEDS: Famotidine 20 MG TAB PO SCH ×2 (08:10→19:48)
[2020-03-22] MEDS: Enoxaparin Sodium 30 MG/0.3 ML SYRINGE SC SCH (08:13)
[2020-03-22] MEDS: Morphine 4 MG/ML VIAL SLOW IVP PRN ×2 (13:26→19:48)
--- NOTE | 2020-03-22 14:59 | PDOC.HOSPP ---
- Subjective Encounter Date: 03/22/20 Encounter Time: 10:30 Subjective: is passing flatus and ambulating in hallway feels better tolerating liq diet - Objective Vital Signs & Weight: Vital Signs (12 hours) Temp Pulse Resp BP BP Pulse Ox 03/22/20 11:41 98.2 F 56 L 18 128/81 97 03/22/20 08:08 133/79 03/22/20 07:35 98.2 F 52 L 18 133/79 97 03/22/20 04:40 98.3 F 54 L 16 158/82 H 99 Weight Weight 183 lb 4.8 oz I&O: 03/21/20 03/22/20 03/23/20 06:59 06:59 06:59 Intake Total 200 1920 300 Output Total 900 Balance -700 1920 300 Result Diagrams: 03/21/20 07:26 03/21/20 07:26 Hospitalist ROS - Medication Medications: Active Medications Generic Name Dose Route Start Last Admin Trade Name Freq PRN Reason Stop Dose Admin Hydrocodone Bitart/Acetaminophen 2 tab 03/21/20 17:06 03/22/20 08:09 Hydrocodone/Acetaminophen 7.5/325 Mg Tablet PO 2 tab Q4H PRN Administration Severe Pain (7-10) Amlodipine Besylate 10 mg 03/21/20 09:00 03/22/20 08:08 Amlodipine 10 Mg Tab PO 10 mg DAILY LAKEISHA Administration Carvedilol 25 mg 03/20/20 21:00 03/22/20 08:09 Carvedilol 25 Mg Tab PO 25 mg BID LAKEISHA Administration Enoxaparin Sodium 30 mg 03/22/20 09:00 03/22/20 08:13 Enoxaparin Sodium 30 Mg/0.3 Ml Syringe SC Not Given 899 LAKEISHA Famotidine 20 mg 03/20/20 21:00 03/22/20 08:10 Famotidine 20 Mg Tab PO 20 mg Q12HR LAKEISHA Administration Losartan Potassium 100 mg 03/21/20 09:00 03/22/20 08:09 Losartan 25 Mg Tab PO 100 mg DAILY LAKEISHA Administration Minoxidil 10 mg 03/22/20 09:00 03/22/20 08:09 Minoxidil 10 Mg Tab PO 10 mg DAILY LAKEISHA Administration Morphine Sulfate 4 mg 03/20/20 17:05 03/22/20 13:26 Morphine 4 Mg/Ml Vial SLOW IVP 4 mg Q2H PRN Administration Moderate Pain (4-6) Morphine Sulfate 6 mg 03/20/20 17:19 03/20/20 20:19 Morphine 4 Mg/Ml Vial SLOW IVP 6 mg Q2H PRN Administration Severe Pain (7-10) - Exam General Appearance: awake alert Eye: PERRL, anicteric sclera ENT: no oropharyngeal lesions, moist mucosa Neck: supple, no JVD Heart: RRR, no murmur Respiratory: no wheezes, no rales Gastrointestinal: soft, no guarding, no rigidity Extremities: no cyanosis, no edema Neurological: cranial nerve grossly intact, no focal deficits Psychiatric: A&O x 3 Hosp A/P (1) HTN (hypertension) Code(s): I10 - ESSENTIAL (PRIMARY) HYPERTENSION Status: Chronic Qualifiers: Hypertension type: essential hypertension Qualified Code(s): I10 - Essential (primary) hypertension (2) Tobacco abuse Code(s): Z72.0 - TOBACCO USE Status: Chronic (3) s/p colostomy reversal Status: Acute (4) H/O diverticulitis of colon Code(s): Z87.19 - PERSONAL HISTORY OF OTHER DISEASES OF THE DIGESTIVE SYSTEM Status: Chronic - Plan continue current htn meds including coreg lower dose due to bradycardia, cozaar, norvasc and minoxidil watch for renal function is on iv fluids, liq diet is ambulating in hallway hemostable
--- NOTE | 2020-03-22 15:02 | PDOC.GSPN ---
Surgery Progress Note: Subj - Subjective Narrative: Patient is feeling well. He is hungry. He passed a little gas this morning while ambulating. No nausea. Pain is controlled. Blood pressures under better control. Abdomen is soft and nondistended with appropriate tami-incisional tenderness. Incisions look good. Renal ultrasound did not show any persistent hydronephrosis. He did have a borderline increased resistive index of the left kidney but no elevated renal artery velocities. Assessment/plan: Status post colostomy takedown doing well. He has passed some flatus and is not nauseated. I am going to advance him to full liquids today. Continue to ambulate. Medical management per hospitalist. Appreciate nephrology input. Surgery Progress Note: Obj - Vital signs Vital signs: Vital Signs - Most Recent Temp Pulse Resp BP Pulse Ox 98.2 F 56 L 18 128/81 97 03/22/20 11:41 03/22/20 11:41 03/22/20 11:41 03/22/20 11:41 03/22/20 11:41 Surgery Progress Note: Results - Labs Result Diagrams: 03/21/20 07:26 03/21/20 07:26
[2020-03-22] MEDS: Carvedilol 6.25 MG TAB PO SCH (17:57)
--- NOTE | 2020-03-22 19:39 | PRG ---
DATE OF SERVICE: 03/22/2020 SUBJECTIVE: The patient was seen and examined, noted with the following vital signs. OBJECTIVE: VITAL SIGNS: Afebrile, temperature 98.2, pulse 56, respiratory rate of 18, and O2 saturation of 98% with a blood pressure of 158/83. HEENT: Unremarkable. CARDIOVASCULAR SYSTEM: First and second heart sounds were heard. RESPIRATORY SYSTEM: Clear to auscultation. DIGESTIVE SYSTEM: Revealed a benign abdomen. Positive bowel sounds. EXTREMITIES: No peripheral edema. SKIN: No new gross rash. LYMPHATICS: No peripheral lymphadenopathy. IMPRESSION: 1. Multiple drug-resistant hypertension, seems to be stabilizing. 2. Chronic kidney disease, stage 3. 3. Tobacco abuse. PLAN: 1. Continue counseling on tobacco cessation. 2. will likely begin to reduce the dose of some antihypertensive medications. The goal of treatment in this patient is to streamline and simplify the blood pressure medication in this patient in order to improve compliance. Job ID: [id number]
[2020-03-22] MEDS: Acetaminophen 325 MG TAB PO PRN (19:47)
[2020-03-23] MEDS: Acetaminophen 325 MG TAB PO PRN (04:27)
[2020-03-23] MEDS: Morphine 4 MG/ML VIAL SLOW IVP PRN (04:27)
[2020-03-23] MEDS: Amlodipine 10 MG TAB PO SCH (07:54)
[2020-03-23] MEDS: Famotidine 20 MG TAB PO SCH (07:54)
[2020-03-23] MEDS: Losartan 25 MG TAB PO SCH (07:55)
[2020-03-23] MEDS: Carvedilol 6.25 MG TAB PO SCH (07:55)
[2020-03-23] MEDS: Minoxidil 10 MG TAB PO SCH (07:56)
[2020-03-23] MEDS: HYDROcodone/Acetaminophen 7.5/325 mg Tablet PO PRN (07:56)
[2020-03-23] MEDS: Enoxaparin Sodium 30 MG/0.3 ML SYRINGE SC SCH (08:03)
[2020-03-23] MEDS ORDERED: traMADol HCl 50 MG TAB PO PRN ×2 (09:39)
--- NOTE | 2020-03-23 10:22 | PDOC.GSPN ---
Surgery Progress Note: Subj - Subjective Narrative: Patient is doing well this morning. He had 2 bowel movements and is tolerating his full liquid diet. No nausea. Pain is tolerable on Nerinx. Blood pressure was quite high this morning. The nurse states that he had been putting off taking any pain medication through the night. He did receive some hydralazine. Abdominal incisions look good. Herrera were removed from the colostomy site. Assessment/plan: Doing well status post colostomy reversal. Bowel function has returned. I have advanced him to a GI soft diet and if he tolerates this he can go home from a surgery standpoint. I have asked the hospitalist to evaluate his hypertension and his home medications to see if he is stable for discharge from a medical standpoint. We will try to arrange outpatient follow-up with nephrology for his renal insufficiency. Surgery Progress Note: Obj - Vital signs Vital signs: Vital Signs - Most Recent Temp Pulse Resp BP Pulse Ox 98.3 F 52 L 12 188/113 H 98 03/23/20 07:30 03/23/20 07:30 03/23/20 07:30 03/23/20 07:58 03/23/20 07:30 Surgery Progress Note: Results - Labs Result Diagrams: 03/21/20 07:26 03/21/20 07:26
--- NOTE | 2020-03-23 11:04 | PDOC.HOSPP ---
- Subjective Encounter Date: 03/23/20 Encounter Time: 09:00 Subjective: had 2 bm this am is ambulating well wants to go home - Objective Vital Signs & Weight: Vital Signs (12 hours) Temp Pulse Resp BP BP Pulse Ox 03/23/20 07:58 188/113 H 03/23/20 07:55 188/113 H 03/23/20 07:54 188/113 H 03/23/20 07:30 98.3 F 52 L 12 188/113 H 98 03/23/20 03:36 98.4 F 60 16 163/90 H 97 03/23/20 00:02 98.5 F 56 L 16 124/81 98 Weight Weight 183 lb 4.8 oz I&O: 03/22/20 03/23/20 03/24/20 06:59 06:59 06:59 Intake Total 1920 700 Balance 1920 700 Result Diagrams: 03/21/20 07:26 03/21/20 07:26 Hospitalist ROS - Medication Medications: Active Medications Generic Name Dose Route Start Last Admin Trade Name Freq PRN Reason Stop Dose Admin Acetaminophen 650 mg 03/21/20 17:06 03/23/20 04:27 Acetaminophen 325 Mg Tab PO 650 mg Q4H PRN Administration Headache/Fever/Mild Pain (1-3) Hydrocodone Bitart/Acetaminophen 2 tab 03/21/20 17:06 03/23/20 07:56 Hydrocodone/Acetaminophen 7.5/325 Mg Tablet PO 2 tab Q4H PRN Administration Severe Pain (7-10) Amlodipine Besylate 10 mg 03/21/20 09:00 03/23/20 07:54 Amlodipine 10 Mg Tab PO 10 mg DAILY LAKEISHA Administration Carvedilol 6.25 mg 03/22/20 17:00 03/23/20 07:55 Carvedilol 6.25 Mg Tab PO 6.25 mg BID-WM LAKEISHA Administration Enoxaparin Sodium 30 mg 03/22/20 09:00 03/23/20 08:03 Enoxaparin Sodium 30 Mg/0.3 Ml Syringe SC Not Given 0900 LAKEISHA Famotidine 20 mg 03/20/20 21:00 03/23/20 07:54 Famotidine 20 Mg Tab PO 20 mg Q12HR LA[place]ISHA Administration Hydralazine HCl 10 mg 03/20/20 17:05 03/23/20 07:58 Hydralazine 20 Mg/Ml Vial SLOW IVP 10 mg Q4H PRN Administration SBP > 170 or DBP > 100 Losartan Potassium 100 mg 03/21/20 09:00 03/23/20 07:55 Losartan 25 Mg Tab PO 100 mg DAILY LAKEISHA Administration Minoxidil 10 mg 03/22/20 09:00 03/23/20 07:56 Minoxidil 10 Mg Tab PO 10 mg DAILY LAKEISHA Administration Morphine Sulfate 4 mg 03/20/20 17:05 03/23/20 04:27 Morphine 4 Mg/Ml Vial SLOW IVP 4 mg Q2H PRN Administration Moderate Pain (4-6) Morphine Sulfate 6 mg 03/20/20 17:19 03/20/20 20:19 Morphine 4 Mg/Ml Vial SLOW IVP 6 mg Q2H PRN Administration Severe Pain (7-10) - Exam General Appearance: awake alert Eye: PERRL, anicteric sclera ENT: no oropharyngeal lesions, moist mucosa Neck: supple, no JVD Heart: RRR, no murmur Respiratory: no wheezes, no rales Gastrointestinal: soft, non-tender, non-distended, normal bowel sounds Extremities: no cyanosis, no edema Neurological: cranial nerve grossly intact, no focal deficits Psychiatric: normal affect, A&O x 3 Hosp A/P (1) HTN (hypertension) Code(s): I10 - ESSENTIAL (PRIMARY) HYPERTENSION Status: Chronic Qualifiers: Hypertension type: essential hypertension Qualified Code(s): I10 - Essential (primary) hypertension (2) Tobacco abuse Code(s): Z72.0 - TOBACCO USE Status: Chronic (3) s/p colostomy reversal Status: Acute (4) H/O diverticulitis of colon Code(s): Z87.19 - PERSONAL HISTORY OF OTHER DISEASES OF THE DIGESTIVE SYSTEM Status: Chronic - Plan continue current htn meds including coreg lower dose due to bradycardia, cozaar, norvasc and minoxidil renal function is stable solid diet is ambulating in hallway hemostable counselled to stay away from smoking, to take home his i.spirometer may dc anytime home
[2020-03-23 12:23] VITALS: BP 173/106; TEMP 98.8
--- NOTE | 2020-03-23 14:22 | DIS ---
DATE OF ADMISSION: 03/20/2020 DATE OF DISCHARGE: 03/23/2020 DISCHARGE DISPOSITION: Home. PRIMARY DISCHARGE DIAGNOSES: Status post laparoscopic hand assisted colostomy takedown with splenic flexure mobilization done by Dr. Regalado on 03/20/2020. SECONDARY DISCHARGE DIAGNOSES: Hypertension, possible chronic kidney disease stage 2 to 3, history of diverticulitis of colon, tobacco abuse. PROCEDURES DONE DURING HOSPITALIZATION: The patient has had laparoscopic hand assisted colostomy takedown with splenic flexure mobilization done by Dr. Regalado on 03/20/2020. Renal ultrasound done on 03/21/2020 showed borderline elevated left resistive indices. No significant abnormal renal artery velocities. The patient has had screening colonoscopy done on 03/20/[address] Ángel Mosqueda. Histopathology of biopsies from the polyps showed tubular adenoma. The second polyp biopsy showed tubular adenoma with focal surface high-grade dysplasia, which was completely excised and there were 2 hyperplastic polyps as well in addition to the above. H and H 12 and 39, platelet count 151, MCV was 101. BUN 14, creatinine 1.4, albumin is 3.8. DISCHARGE MEDICATIONS: 1. Norvasc 10 mg p.o. q.a.m. 2. Clonidine 0.1 mg p.o. twice daily. 3. Carvedilol per Dr. Regalado as advised. 4. Cozaar 100 mg p.o. daily. 5. Minoxidil 10 mg daily. 6. Pinola p.r.n. for pain. 7. Ultram p.r.n. for pain. ALLERGIES: TO LISINOPRIL. DISCHARGE PLAN: The patient to follow up with Dr. Regalado in 2 to 3 weeks. He needs to follow up with Dr. Kortney Rose, primary care physician in 1 week. BRIEF COURSE DURING HOSPITALIZATION: The patient initially was electively admitted by Dr. Regalado for takedown of prior colostomy done for severe diverticulitis with David procedure. The patient has had screening colonoscopy done by Dr. Ángel Mosqueda prior to the colon surgery. Post-procedure, [facility] hospitalists were consulted for comanagement of medical issues. The patient has had uncontrolled hypertension with likely chronic kidney disease stage 2 to 3. He was placed on multiple antihypertensive medications. The patient was kept n.p.o. for 48 hours post-procedure and was initiated on a liquid diet. He has had 2 formed stools this morning and has been advised to solid diet. His hypertension is fairly well controlled given his postoperative state. Ultrasound of the kidneys done showed no significant no significant abnormality as such. He will follow up with Dr. Fitzgerald in the outpatient setting. He needs follow up with his primary care physician in 1 week. He has been cleared for discharge by Dr. Regalado. Prior to discharge, he has ambulated in the hallway and is tolerating solid diet. The patient has been advised to check his blood pressure and pulse twice daily. Likely, his Coreg dosage needs to be dropped to lower levels as the patient has a tendency to develop bradycardia. Job ID: [id number]
--- NOTE | 2020-03-23 17:32 | PRG ---
DATE OF SERVICE: 03/23/2020 SUBJECTIVE: The patient was seen and examined, noted with the following vital signs. OBJECTIVE: VITAL SIGNS: Afebrile, temperature 98.8, pulse 56, respiratory rate of 16, O2 saturations are 98% with a blood pressure 170/106. HEENT: Unremarkable. CARDIOVASCULAR: First and second heart sounds were heard. RESPIRATORY: Clear to auscultation. DIGESTIVE: Revealed a benign abdomen. Positive bowel sounds. EXTREMITIES: No peripheral edema. SKIN: No new gross rash. LYMPHATICS: No peripheral lymphadenopathy. IMPRESSION: 1. Multidrug-resistant hypertension, much improved with the current regimen. 2. Metabolic acidosis. 3. Chronic kidney disease stage 3. 4. Tobacco abuse. PLAN: 1. Continue current management. 2. Outpatient Nephrology followup status post discharge. 3. The patient will benefit from sodium bicarbonate supplementation. 4. Further management to be dependent on the clinical course. Job ID: [id number]
== END 2020-03-23 13:40 | disposition home or self-care (01) | DRG 330 ==
LOC: SURG A 03-20 09:00
PROVIDERS: ADMIT Surgery; ATTEND Surgery
PROC: 0DBM0ZZ Excision of Descending Colon, Open Approach (ICD-10-PCS; principal; 2020-03-20)
PROC: 0DBP8ZZ Excision of Rectum, Via Natural or Artificial Opening Endoscopic (ICD-10-PCS; 2020-03-20)
PROC: 0DBL8ZZ Excision of Transverse Colon, Via Natural or Artificial Opening Endoscopic (ICD-10-PCS; 2020-03-20)
DX: Z43.3 Encounter for attention to colostomy (principal); E87.2 Acidosis; I12.9 Hypertensive chronic kidney disease with stage 1 through stage 4 chronic kidney disease, or unspecified chronic kidney disease; N18.3 Chronic kidney disease, stage 3 (moderate); F17.210 Nicotine dependence, cigarettes, uncomplicated; D12.3 Benign neoplasm of transverse colon; K64.8 Other hemorrhoids; K57.30 Diverticulosis of large intestine without perforation or abscess without bleeding; D12.8 Benign neoplasm of rectum; R06.6 Hiccough; Z88.8 Allergy status to other drugs, medicaments and biological substances; Z79.899 Other long term (current) drug therapy; Z91.14 Patient's other noncompliance with medication regimen
CPT/HCPCS: 36415; 36416; 76770; 80048; 80053; 83735; 83880; 85025; 88305; 93975; J0360; J0670; J0694; J1100; J1650; J1885; J2250; J2270; J2704; J3010; J3480; S0020

== ENCOUNTER 2025-02-27 16:28 | Inpatient (IN) | payer OTHER, BC ==
[2025-02-27] MEDS ORDERED: Ketorolac Tromethamine 30 MG (1 mL) VIAL IVP PRN (19:58)
[2025-02-27] MEDS: Famotidine 20 MG TAB PO SCH (20:09)
[2025-02-27] MEDS ORDERED: Vancomycin 1 GM in Premix 1 BAG IVPB SCH (21:00)
[2025-02-27 21:28] VITALS: BMI 29.5
[2025-02-27] MEDS: HYDROcodone/Acetaminophen 5/325 mg Tablet PO SCH (21:28)
[2025-02-28 06:13] LABS: #Basophils Less than 0.03 10x3/uL (0.0-0.2); #Eosinophils 0.12 10x3/uL (0.0-0.7); #Monocytes 0.90 10x3/uL (0.11-0.59); #Neutrophils 4.32 10x3/uL (1.40-6.50); %Basophils 0.3 % (0.0-1.0); %Eosinophils 1.9 % (0.0-10.0); %Lymphocytes 15.7 % (21.0-51.0); %Monocytes 14.1 % (0.0-10.0); %Neutrophils 67.7 % (42.0-75.0); Hematocrit 38.7 % (42.0-52.0); Hemoglobin 12.6 g/dL (14.0-18.0); Mean Corpuscular Hemoglobin 31.3 pg (27.0-31.0); Mean Corpuscular Volume 96.0 fL (78.0-98.0); Platelet Count 201 10x3/uL (130-400); Red Blood Cell (RBC) Count 4.03 mill/uL (4.70-6.10); White Blood Cell (WBC) Count 6.38 10x3/uL (4.8-10.8)
[2025-02-28 06:33] LABS: Vancomycin, Random 15.0 ug/mL (See Comment)
[2025-02-28 06:34] LABS: Anion Gap 13 mmol/L (10-20); BUN (Urea Nitrogen) 17 mg/dL (8.4-25.7); Calc. Creatinine Clearance 74 mL/min (70-130); Calcium 9.0 mg/dL (7.8-10.44); Carbon Dioxide 22 mmol/L (22-29); Chloride 106 mmol/L (98-107); Glucose 103 mg/dL (70-105); Potassium 3.9 mmol/L (3.5-5.1); Sodium 137 mmol/L (136-145)
[2025-02-28] MEDS: Acetaminophen 325 MG TAB PO PRN (08:01)
[2025-02-28] MEDS: Vancomycin 1.5 GM / NS 500 ML VIAL-2-BAG IVPB SCH (15:58)
[2025-02-28] MEDS: Carvedilol 6.25 MG TAB PO SCH (18:19)
[2025-02-28] MEDS: Heparin 5,000 UNITS/ML VIAL SC SCH (20:59)
[2025-03-01 05:43] LABS: #Basophils Less than 0.03 10x3/uL (0.0-0.2); #Eosinophils 0.14 10x3/uL (0.0-0.7); #Monocytes 0.71 10x3/uL (0.11-0.59); #Neutrophils 2.98 10x3/uL (1.40-6.50); %Basophils 0.4 % (0.0-1.0); %Eosinophils 2.9 % (0.0-10.0); %Lymphocytes 20.4 % (21.0-51.0); %Monocytes 14.6 % (0.0-10.0); %Neutrophils 61.5 % (42.0-75.0); Hematocrit 39.6 % (42.0-52.0); Hemoglobin 12.7 g/dL (14.0-18.0); Mean Corpuscular Hemoglobin 31.4 pg (27.0-31.0); Mean Corpuscular Volume 97.8 fL (78.0-98.0); Platelet Count 187 10x3/uL (130-400); Red Blood Cell (RBC) Count 4.05 mill/uL (4.70-6.10); White Blood Cell (WBC) Count 4.85 10x3/uL (4.8-10.8)
[2025-03-01 06:00] LABS: Anion Gap 15 mmol/L (10-20); BUN (Urea Nitrogen) 14 mg/dL (8.4-25.7); Calc. Creatinine Clearance 84 mL/min (70-130); Calcium 9.3 mg/dL (7.8-10.44); Carbon Dioxide 22 mmol/L (22-29); Chloride 109 mmol/L (98-107); Glucose 99 mg/dL (70-105); Potassium 3.7 mmol/L (3.5-5.1); Sodium 142 mmol/L (136-145)
[2025-03-01] MEDS ORDERED: Lidocaine 1% PF 5 ML VIAL ONE (07:26)
[2025-03-01] MEDS ORDERED: PROPOFOL 20 ML ONE (07:26)
[2025-03-01] MEDS ORDERED: fentaNYL PF 100 MCG/2 ML SYRINGE ONE (07:26)
[2025-03-01] MEDS ORDERED: Ondansetron PF 4 MG/2 ML Vial ONE (07:26)
[2025-03-01] MEDS ORDERED: Bupivacaine 0.25% HCL 30 ML VIAL ONE (07:26)
[2025-03-01] MEDS ORDERED: Ondansetron PF 4 MG/2 ML Vial SLOW IVP PRN (08:53)
[2025-03-01] MEDS ORDERED: HYDROcodone/Acetaminophen 10/325 mg Tablet PO PRN (08:53)
[2025-03-01] MEDS ORDERED: Communication Order-Pharmacy FS SCH (09:00)
[2025-03-01] MEDS: HYDROcodone/Acetaminophen 10/325 mg Tablet PO PRN (09:58)
[2025-03-01] MEDS: Aspirin 81 mg Enteric Coated Tablet PO SCH (10:00)
[2025-03-01] MEDS: Losartan 25 MG TAB PO SCH (10:00)
[2025-03-01] MEDS: Carvedilol 6.25 MG TAB PO SCH (10:01)
[2025-03-01] MEDS: cloNIDine 0.1 MG TAB PO SCH (10:01)
[2025-03-01] MEDS: Ketorolac Tromethamine 30 MG (1 mL) VIAL IVP SCH ×2 (14:55→15:04)
[2025-03-01] MEDS: oxyCODONE 5 MG TAB PO PRN (19:17)
[2025-03-02 06:10] LABS: #Basophils Less than 0.03 10x3/uL (0.0-0.2); #Eosinophils 0.07 10x3/uL (0.0-0.7); #Monocytes 0.82 10x3/uL (0.11-0.59); #Neutrophils 4.73 10x3/uL (1.40-6.50); %Basophils 0.3 % (0.0-1.0); %Eosinophils 1.1 % (0.0-10.0); %Lymphocytes 14.9 % (21.0-51.0); %Monocytes 12.3 % (0.0-10.0); %Neutrophils 71.1 % (42.0-75.0); Hematocrit 32.4 % (42.0-52.0); Hemoglobin 10.5 g/dL (14.0-18.0); Mean Corpuscular Hemoglobin 31.3 pg (27.0-31.0); Mean Corpuscular Volume 96.4 fL (78.0-98.0); Platelet Count 208 10x3/uL (130-400); Red Blood Cell (RBC) Count 3.36 mill/uL (4.70-6.10); White Blood Cell (WBC) Count 6.65 10x3/uL (4.8-10.8)
[2025-03-02 06:28] LABS: Vancomycin, Random 17.6 ug/mL (See Comment)
[2025-03-02 06:30] LABS: Anion Gap 11 mmol/L (10-20); BUN (Urea Nitrogen) 14 mg/dL (8.4-25.7); Calc. Creatinine Clearance 70 mL/min (70-130); Calcium 8.7 mg/dL (7.8-10.44); Carbon Dioxide 25 mmol/L (22-29); Chloride 107 mmol/L (98-107); Glucose 115 mg/dL (70-105); Magnesium 1.9 mg/dL (1.6-2.6); Potassium 4.2 mmol/L (3.5-5.1); Sodium 139 mmol/L (136-145)
[2025-03-02] MEDS: Heparin 5,000 UNITS/ML VIAL SC SCH (20:43)
[2025-03-03 06:28] LABS: #Basophils Less than 0.03 10x3/uL (0.0-0.2); #Eosinophils 0.11 10x3/uL (0.0-0.7); #Monocytes 0.73 10x3/uL (0.11-0.59); #Neutrophils 3.43 10x3/uL (1.40-6.50); %Basophils 0.4 % (0.0-1.0); %Eosinophils 2.1 % (0.0-10.0); %Lymphocytes 19.6 % (21.0-51.0); %Monocytes 13.6 % (0.0-10.0); %Neutrophils 64.1 % (42.0-75.0); Hematocrit 30.2 % (42.0-52.0); Hemoglobin 9.6 g/dL (14.0-18.0); Mean Corpuscular Hemoglobin 31.0 pg (27.0-31.0); Mean Corpuscular Volume 97.4 fL (78.0-98.0); Platelet Count 197 10x3/uL (130-400); Red Blood Cell (RBC) Count 3.10 mill/uL (4.70-6.10); White Blood Cell (WBC) Count 5.35 10x3/uL (4.8-10.8)
[2025-03-03 06:48] LABS: ALT (SGPT) 7 U/L (Less than 45); AST (SGOT) 13 U/L (11-34); Albumin 2.9 g/dL (3.1-4.5); Alkaline Phosphatase 52 U/L (40-110); Anion Gap 13 mmol/L (10-20); BUN (Urea Nitrogen) 11 mg/dL (8.4-25.7); Bilirubin, Total 0.8 mg/dL (0.3-1.2); Calc. Creatinine Clearance 81 mL/min (70-130); Calcium 8.9 mg/dL (7.8-10.44); Carbon Dioxide 26 mmol/L (22-29); Chloride 108 mmol/L (98-107); Globulin 3.2 g/dL (2.4-3.5); Glucose 104 mg/dL (70-105); Magnesium 1.7 mg/dL (1.6-2.6); Potassium 3.8 mmol/L (3.5-5.1); Sodium 143 mmol/L (136-145)
[2025-03-03] MEDS ORDERED: hydrALAZINE 20 MG/ML VIAL SLOW IVP PRN (09:03)
[2025-03-03 17:16] LABS: Iron 17 ug/dL (65-175); Iron Binding Capacity, Total 204 mcg/dL (261-462)
[2025-03-04 06:01] LABS: Hematocrit 30.0 % (42.0-52.0); Hemoglobin 9.7 g/dL (14.0-18.0); Mean Corpuscular Hemoglobin 31.1 pg (27.0-31.0); Mean Corpuscular Volume 96.2 fL (78.0-98.0); Platelet Count 208 10x3/uL (130-400); Red Blood Cell (RBC) Count 3.12 mill/uL (4.70-6.10); White Blood Cell (WBC) Count 6.16 10x3/uL (4.8-10.8)
[2025-03-04 06:35] LABS: Anion Gap 14 mmol/L (10-20); BUN (Urea Nitrogen) 14 mg/dL (8.4-25.7); Calc. Creatinine Clearance 84 mL/min (70-130); Calcium 9.2 mg/dL (7.8-10.44); Carbon Dioxide 25 mmol/L (22-29); Chloride 108 mmol/L (98-107); Glucose 104 mg/dL (70-105); Magnesium 1.9 mg/dL (1.6-2.6); Potassium 4.0 mmol/L (3.5-5.1); Sodium 143 mmol/L (136-145)
[2025-03-06] MEDS: Ferrous Sulfate 325 MG TAB PO SCH (09:04)
[2025-03-07 05:35] LABS: Hematocrit 31.6 % (42.0-52.0); Hemoglobin 10.1 g/dL (14.0-18.0); Mean Corpuscular Hemoglobin 31.0 pg (27.0-31.0); Mean Corpuscular Volume 96.9 fL (78.0-98.0); Platelet Count 276 10x3/uL (130-400); Red Blood Cell (RBC) Count 3.26 mill/uL (4.70-6.10); White Blood Cell (WBC) Count 5.95 10x3/uL (4.8-10.8)
[2025-03-07 05:46] LABS: Anion Gap 13 mmol/L (10-20); BUN (Urea Nitrogen) 14 mg/dL (8.4-25.7); Calc. Creatinine Clearance 80 mL/min (70-130); Calcium 9.3 mg/dL (7.8-10.44); Carbon Dioxide 24 mmol/L (22-29); Chloride 107 mmol/L (98-107); Glucose 111 mg/dL (70-105); Potassium 3.8 mmol/L (3.5-5.1); Sodium 140 mmol/L (136-145)
[2025-03-07 05:58] LABS: Vancomycin, Random 14.0 ug/mL (See Comment)
[2025-03-07] MEDS ORDERED: Sodium Bicarbonate 2.5 MEQ/5 ML SDV ONE (07:33)
[2025-03-07] MEDS ORDERED: Lidocaine 1% PF 5 ML VIAL ONE (07:33)
[2025-03-07] MEDS: cefTRIAXone\\ROCEPHIN 1 GM in Sodium Chloride 0.9% 100 ML IVPB SCH (12:40)
[2025-03-07 13:09] LABS: CRP, High Sensitivity at Bryan 10.61 mg/dL (< or = 0.5)
[2025-03-07 13:10] LABS: CK (CPK) 61.0 U/L (30-200)
[2025-03-07] MEDS: Vancomycin 1 GM in Premix 1 BAG IVPB SCH (13:47)
[2025-03-07 16:20] VITALS: BMI 29.5
[2025-03-07 17:25] VITALS: BP 118/74
[2025-03-07 17:59] VITALS: TEMP 99.4
[2025-03-07] MEDS ORDERED: Vancomycin 1 GM in Premix 1 BAG IVPB SCH ×2 (23:59)
== END 2025-03-07 18:05 | disposition home or self-care (01) | DRG 486 ==
LOC: UNDOADMIN 18:00 → SURG B 18:00
PROVIDERS: ADMIT Family Medicine; ATTEND Internal Medicine
PROC: 0SBC4ZZ Excision of Right Knee Joint, Percutaneous Endoscopic Approach (ICD-10-PCS; principal; 2025-03-01)
PROC: 02HV33Z Insertion of Infusion Device into Superior Vena Cava, Percutaneous Approach (ICD-10-PCS; 2025-03-07)
PROC: B548ZZA Ultrasonography of Superior Vena Cava, Guidance (ICD-10-PCS; 2025-03-07)
PROC: 3E03329 Introduction of Other Anti-infective into Peripheral Vein, Percutaneous Approach (ICD-10-PCS; 2025-03-07)
DX: M00.9 Pyogenic arthritis, unspecified (principal); N17.9 Acute kidney failure, unspecified; Z88.8 Allergy status to other drugs, medicaments and biological substances; I12.9 Hypertensive chronic kidney disease with stage 1 through stage 4 chronic kidney disease, or unspecified chronic kidney disease; Z98.890 Other specified postprocedural states; Z90.49 Acquired absence of other specified parts of digestive tract; Z83.3 Family history of diabetes mellitus; Z91.012 Allergy to eggs; N18.30 Chronic kidney disease, stage 3 unspecified; D50.9 Iron deficiency anemia, unspecified; Z79.899 Other long term (current) drug therapy; F17.210 Nicotine dependence, cigarettes, uncomplicated; D63.1 Anemia in chronic kidney disease
CPT/HCPCS: 36415; 36416; 36573; 80048; 80053; 80202; 82550; 82728; 83540; 83550; 83605; 83735; 85025; 85027; 86141; 87070; 87205; C1751; J0169; J0665; J0692; J0696; J1644; J1885; J2250; J2270; J2405; J2704; J3010; J3373; J7030; J7120

== ENCOUNTER 2025-03-13 16:53 | Inpatient (IN) | payer BC, OTHER, SELFPAY ==
[2025-03-13 18:25] LABS: #Basophils 0.05 10x3/uL (0.0-0.2); #Eosinophils 0.14 10x3/uL (0.0-0.7); #Monocytes 0.83 10x3/uL (0.11-0.59); #Neutrophils 7.08 10x3/uL (1.40-6.50); %Basophils 0.5 % (0.0-1.0); %Eosinophils 1.5 % (0.0-10.0); %Lymphocytes 11.1 % (21.0-51.0); %Monocytes 9.1 % (0.0-10.0); %Neutrophils 77.4 % (42.0-75.0); Hematocrit 31.5 % (42.0-52.0); Hemoglobin 10.0 g/dL (14.0-18.0); Mean Corpuscular Hemoglobin 30.9 pg (27.0-31.0); Mean Corpuscular Volume 97.2 fL (78.0-98.0); Platelet Count 412 10x3/uL (130-400); Red Blood Cell (RBC) Count 3.24 mill/uL (4.70-6.10); White Blood Cell (WBC) Count 9.16 10x3/uL (4.8-10.8)
[2025-03-13 18:57] LABS: ALT (SGPT) 23 U/L (Less than 45); AST (SGOT) 104 U/L (11-34); Albumin 3.6 g/dL (3.1-4.5); Alkaline Phosphatase 59 U/L (40-110); Anion Gap 13 mmol/L (10-20); BUN (Urea Nitrogen) 16 mg/dL (8.4-25.7); Bilirubin, Total 0.6 mg/dL (0.3-1.2); Calc. Creatinine Clearance 0 mL/min (70-130); Calcium 9.3 mg/dL (7.8-10.44); Carbon Dioxide 25 mmol/L (22-29); Chloride 108 mmol/L (98-107); Globulin 3.7 g/dL (2.4-3.5); Glucose 104 mg/dL (70-105); Potassium 3.7 mmol/L (3.5-5.1); Sodium 142 mmol/L (136-145)
[2025-03-13 19:04] LABS: CK (CPK) 7153 U/L (30-200)
[2025-03-13 19:14] LABS: CAUTI Indications for Culture < 2yrs of age; Glucose, Urine (Dipstick) Normal (Negative); Leukocyte 250 Leu/uL (Negative); Protein, Urine (Dipstick) 30 mg/dL (Neg-Trace); Specific Gravity, Urine 1.021 (1.002-1.036); WBC/HPF 21-50 HPF (0-3)
[2025-03-13 19:21] LABS: Bacteria/HPF 1+ HPF (None Seen)
[2025-03-13 19:22] LABS: Urine Culture Reflex Yes Yes
[2025-03-13] MEDS ORDERED: cefTRIAXone (ROCEPHIN) 1 GM VIAL ONE (19:59)
[2025-03-13] MEDS ORDERED: Ondansetron PF 4 MG/2 ML Vial IVP PRN (21:56)
[2025-03-13] MEDS ORDERED: Calcium Carbonate 500 MG ChewTAB PO PRN (21:56)
[2025-03-13] MEDS ORDERED: Acetaminophen 325 MG TAB PO PRN (21:56)
[2025-03-13] MEDS: HYDROcodone/Acetaminophen 7.5/325 mg Tablet PO PRN (23:11)
[2025-03-14 05:59] LABS: #Basophils 0.04 10x3/uL (0.0-0.2); #Eosinophils 0.18 10x3/uL (0.0-0.7); #Monocytes 0.76 10x3/uL (0.11-0.59); #Neutrophils 4.65 10x3/uL (1.40-6.50); %Basophils 0.5 % (0.0-1.0); %Eosinophils 2.5 % (0.0-10.0); %Lymphocytes 22.3 % (21.0-51.0); %Monocytes 10.4 % (0.0-10.0); %Neutrophils 63.9 % (42.0-75.0); Hematocrit 27.8 % (42.0-52.0); Hemoglobin 8.8 g/dL (14.0-18.0); Mean Corpuscular Hemoglobin 30.7 pg (27.0-31.0); Mean Corpuscular Volume 96.9 fL (78.0-98.0); Platelet Count 351 10x3/uL (130-400); Red Blood Cell (RBC) Count 2.87 mill/uL (4.70-6.10); White Blood Cell (WBC) Count 7.28 10x3/uL (4.8-10.8)
[2025-03-14 06:15] LABS: ALT (SGPT) 19 U/L (Less than 45); AST (SGOT) 74 U/L (11-34); Albumin 2.9 g/dL (3.1-4.5); Alkaline Phosphatase 49 U/L (40-110); Anion Gap 10 mmol/L (10-20); BUN (Urea Nitrogen) 13 mg/dL (8.4-25.7); Bilirubin, Total 0.5 mg/dL (0.3-1.2); Calc. Creatinine Clearance 86 mL/min (70-130); Calcium 8.7 mg/dL (7.8-10.44); Carbon Dioxide 24 mmol/L (22-29); Chloride 112 mmol/L (98-107); Globulin 3.4 g/dL (2.4-3.5); Glucose 103 mg/dL (70-105); Potassium 3.7 mmol/L (3.5-5.1); Sodium 142 mmol/L (136-145)
[2025-03-14] MEDS: Carvedilol 25 MG TAB PO SCH (10:42)
[2025-03-14] MEDS: cloNIDine 0.1 MG TAB PO SCH (10:42)
[2025-03-14] MEDS: Enoxaparin 40 MG (0.4 mL) SYRINGE SC SCH (10:43)
[2025-03-14] MEDS: Losartan 25 MG TAB PO SCH (10:43)
[2025-03-14] MEDS ORDERED: cefTRIAXone (ROCEPHIN) 1 GM VIAL IVPB SCH (12:00)
[2025-03-14] MEDS: cefTRIAXone\\ROCEPHIN 1 GM in Sodium Chloride 0.9% 100 ML IVPB SCH (13:30)
[2025-03-14 16:56] VITALS: BMI 29.2
[2025-03-14] MEDS: cefTRIAXone\\ROCEPHIN 2 GM in Sodium Chloride 0.9% 100 ML IVPB SCH ×2 (17:43→22:14)
[2025-03-14] MEDS ORDERED: cefTRIAXone\\ROCEPHIN 1 GM in Sodium Chloride 0.9% 100 ML IVPB SCH (20:00)
[2025-03-14] MEDS: Linezolid 600 MG TAB PO SCH (22:15)
[2025-03-15 05:30] LABS: #Basophils 0.03 10x3/uL (0.0-0.2); #Eosinophils 0.14 10x3/uL (0.0-0.7); #Monocytes 0.53 10x3/uL (0.11-0.59); #Neutrophils 3.59 10x3/uL (1.40-6.50); %Basophils 0.5 % (0.0-1.0); %Eosinophils 2.5 % (0.0-10.0); %Lymphocytes 23.1 % (21.0-51.0); %Monocytes 9.4 % (0.0-10.0); %Neutrophils 64.0 % (42.0-75.0); Hematocrit 27.8 % (42.0-52.0); Hemoglobin 8.8 g/dL (14.0-18.0); Mean Corpuscular Hemoglobin 30.3 pg (27.0-31.0); Mean Corpuscular Volume 95.9 fL (78.0-98.0); Platelet Count 351 10x3/uL (130-400); Red Blood Cell (RBC) Count 2.90 mill/uL (4.70-6.10); White Blood Cell (WBC) Count 5.62 10x3/uL (4.8-10.8)
[2025-03-15 06:00] LABS: CRP, High Sensitivity at Bryan 3.29 mg/dL (< or = 0.5)
[2025-03-15 06:01] LABS: ALT (SGPT) 21 U/L (Less than 45); AST (SGOT) 87 U/L (11-34); Albumin 2.9 g/dL (3.1-4.5); Alkaline Phosphatase 56 U/L (40-110); Anion Gap 14 mmol/L (10-20); BUN (Urea Nitrogen) 11 mg/dL (8.4-25.7); Bilirubin, Total 0.4 mg/dL (0.3-1.2); Calc. Creatinine Clearance 87 mL/min (70-130); Calcium 8.7 mg/dL (7.8-10.44); Carbon Dioxide 23 mmol/L (22-29); Chloride 109 mmol/L (98-107); Globulin 3.2 g/dL (2.4-3.5); Glucose 109 mg/dL (70-105); Potassium 3.8 mmol/L (3.5-5.1); Sodium 142 mmol/L (136-145)
[2025-03-15] MEDS: Carvedilol 25 MG TAB PO SCH (21:32)
[2025-03-16 05:45] LABS: #Basophils Less than 0.03 10x3/uL (0.0-0.2); #Eosinophils 0.18 10x3/uL (0.0-0.7); #Monocytes 0.58 10x3/uL (0.11-0.59); #Neutrophils 3.71 10x3/uL (1.40-6.50); %Basophils 0.4 % (0.0-1.0); %Eosinophils 3.3 % (0.0-10.0); %Lymphocytes 17.6 % (21.0-51.0); %Monocytes 10.6 % (0.0-10.0); %Neutrophils 67.9 % (42.0-75.0); Hematocrit 27.7 % (42.0-52.0); Hemoglobin 8.6 g/dL (14.0-18.0); Mean Corpuscular Hemoglobin 30.4 pg (27.0-31.0); Mean Corpuscular Volume 97.9 fL (78.0-98.0); Platelet Count 324 10x3/uL (130-400); Red Blood Cell (RBC) Count 2.83 mill/uL (4.70-6.10); White Blood Cell (WBC) Count 5.46 10x3/uL (4.8-10.8)
[2025-03-16 05:59] LABS: CRP, High Sensitivity at Bryan 2.55 mg/dL (< or = 0.5)
[2025-03-16 06:00] LABS: ALT (SGPT) 22 U/L (Less than 45); AST (SGOT) 85 U/L (11-34); Albumin 2.7 g/dL (3.1-4.5); Alkaline Phosphatase 49 U/L (40-110); Anion Gap 11 mmol/L (10-20); BUN (Urea Nitrogen) 10 mg/dL (8.4-25.7); Bilirubin, Total 0.4 mg/dL (0.3-1.2); Calc. Creatinine Clearance 87 mL/min (70-130); Calcium 8.5 mg/dL (7.8-10.44); Carbon Dioxide 21 mmol/L (22-29); Chloride 111 mmol/L (98-107); Globulin 3.1 g/dL (2.4-3.5); Glucose 100 mg/dL (70-105); Potassium 3.8 mmol/L (3.5-5.1); Sodium 139 mmol/L (136-145)
[2025-03-17 06:08] LABS: #Basophils Less than 0.03 10x3/uL (0.0-0.2); #Eosinophils 0.14 10x3/uL (0.0-0.7); #Monocytes 0.49 10x3/uL (0.11-0.59); #Neutrophils 3.34 10x3/uL (1.40-6.50); %Basophils 0.4 % (0.0-1.0); %Eosinophils 2.8 % (0.0-10.0); %Lymphocytes 20.6 % (21.0-51.0); %Monocytes 9.7 % (0.0-10.0); %Neutrophils 66.1 % (42.0-75.0); Hematocrit 27.2 % (42.0-52.0); Hemoglobin 8.8 g/dL (14.0-18.0); Mean Corpuscular Hemoglobin 30.8 pg (27.0-31.0); Mean Corpuscular Volume 95.1 fL (78.0-98.0); Platelet Count 333 10x3/uL (130-400); Red Blood Cell (RBC) Count 2.86 mill/uL (4.70-6.10); White Blood Cell (WBC) Count 5.05 10x3/uL (4.8-10.8)
[2025-03-17 06:30] LABS: CRP, High Sensitivity at Bryan 2.45 mg/dL (< or = 0.5)
[2025-03-17 06:31] LABS: ALT (SGPT) 22 U/L (Less than 45); AST (SGOT) 68 U/L (11-34); Albumin 2.8 g/dL (3.1-4.5); Alkaline Phosphatase 54 U/L (40-110); Anion Gap 15 mmol/L (10-20); BUN (Urea Nitrogen) 9 mg/dL (8.4-25.7); Bilirubin, Total 0.4 mg/dL (0.3-1.2); Calc. Creatinine Clearance 80 mL/min (70-130); Calcium 8.6 mg/dL (7.8-10.44); Carbon Dioxide 22 mmol/L (22-29); Chloride 109 mmol/L (98-107); Globulin 3.0 g/dL (2.4-3.5); Glucose 99 mg/dL (70-105); Potassium 3.6 mmol/L (3.5-5.1); Sodium 142 mmol/L (136-145)
[2025-03-17] MEDS: Mupirocin 1 GM TUBE NASAL DECOLONIZATION NASAL SCH (21:54)
[2025-03-18 06:19] LABS: #Basophils Less than 0.03 10x3/uL (0.0-0.2); #Eosinophils 0.12 10x3/uL (0.0-0.7); #Monocytes 0.53 10x3/uL (0.11-0.59); #Neutrophils 3.14 10x3/uL (1.40-6.50); %Basophils 0.4 % (0.0-1.0); %Eosinophils 2.5 % (0.0-10.0); %Lymphocytes 19.4 % (21.0-51.0); %Monocytes 11.2 % (0.0-10.0); %Neutrophils 66.1 % (42.0-75.0); Hematocrit 27.5 % (42.0-52.0); Hemoglobin 8.8 g/dL (14.0-18.0); Mean Corpuscular Hemoglobin 30.8 pg (27.0-31.0); Mean Corpuscular Volume 96.2 fL (78.0-98.0); Platelet Count 282 10x3/uL (130-400); Red Blood Cell (RBC) Count 2.86 mill/uL (4.70-6.10); White Blood Cell (WBC) Count 4.75 10x3/uL (4.8-10.8)
[2025-03-18 06:36] LABS: CRP, High Sensitivity at Bryan 1.86 mg/dL (< or = 0.5)
[2025-03-18 06:37] LABS: ALT (SGPT) 20 U/L (Less than 45); AST (SGOT) 48 U/L (11-34); Albumin 2.8 g/dL (3.1-4.5); Alkaline Phosphatase 55 U/L (40-110); Anion Gap 11 mmol/L (10-20); BUN (Urea Nitrogen) 11 mg/dL (8.4-25.7); Bilirubin, Total 0.4 mg/dL (0.3-1.2); Calc. Creatinine Clearance 76 mL/min (70-130); Calcium 8.7 mg/dL (7.8-10.44); Carbon Dioxide 24 mmol/L (22-29); Chloride 111 mmol/L (98-107); Globulin 3.1 g/dL (2.4-3.5); Glucose 102 mg/dL (70-105); Potassium 3.8 mmol/L (3.5-5.1); Sodium 142 mmol/L (136-145)
[2025-03-19 06:40] LABS: #Basophils Less than 0.03 10x3/uL (0.0-0.2); #Eosinophils 0.15 10x3/uL (0.0-0.7); #Monocytes 0.48 10x3/uL (0.11-0.59); #Neutrophils 3.39 10x3/uL (1.40-6.50); %Basophils 0.4 % (0.0-1.0); %Eosinophils 3.1 % (0.0-10.0); %Lymphocytes 17.3 % (21.0-51.0); %Monocytes 9.8 % (0.0-10.0); %Neutrophils 69.0 % (42.0-75.0); Hematocrit 27.6 % (42.0-52.0); Hemoglobin 9.0 g/dL (14.0-18.0); Mean Corpuscular Hemoglobin 30.8 pg (27.0-31.0); Mean Corpuscular Volume 94.5 fL (78.0-98.0); Platelet Count 304 10x3/uL (130-400); Red Blood Cell (RBC) Count 2.92 mill/uL (4.70-6.10); White Blood Cell (WBC) Count 4.91 10x3/uL (4.8-10.8)
[2025-03-19 06:59] LABS: CRP, High Sensitivity at Bryan 1.36 mg/dL (< or = 0.5)
[2025-03-19 07:00] LABS: ALT (SGPT) 16 U/L (Less than 45); AST (SGOT) 35 U/L (11-34); Albumin 2.9 g/dL (3.1-4.5); Alkaline Phosphatase 59 U/L (40-110); Anion Gap 12 mmol/L (10-20); BUN (Urea Nitrogen) 9 mg/dL (8.4-25.7); Bilirubin, Total 0.3 mg/dL (0.3-1.2); Calc. Creatinine Clearance 84 mL/min (70-130); Calcium 8.8 mg/dL (7.8-10.44); Carbon Dioxide 23 mmol/L (22-29); Chloride 112 mmol/L (98-107); Globulin 3.1 g/dL (2.4-3.5); Glucose 107 mg/dL (70-105); Potassium 3.7 mmol/L (3.5-5.1); Sodium 143 mmol/L (136-145)
[2025-03-19 09:02] VITALS: TEMP 98.7
[2025-03-19 17:02] VITALS: BP 110/69
== END 2025-03-19 17:01 | disposition home or self-care (01) | DRG 558 ==
LOC: ERS 16:53 → T4-B 20:41 → OBSVTOIN 03-14 13:14
PROVIDERS: ADMIT Student in an Organized Health Care Education/Training Program; ATTEND Student in an Organized Health Care Education/Training Program
DX: M62.82 Rhabdomyolysis (principal); M00.9 Pyogenic arthritis, unspecified; N39.0 Urinary tract infection, site not specified; F17.210 Nicotine dependence, cigarettes, uncomplicated; N18.30 Chronic kidney disease, stage 3 unspecified; I12.9 Hypertensive chronic kidney disease with stage 1 through stage 4 chronic kidney disease, or unspecified chronic kidney disease; D63.1 Anemia in chronic kidney disease; Z88.8 Allergy status to other drugs, medicaments and biological substances; Z79.899 Other long term (current) drug therapy
CPT/HCPCS: 36415; 80053; 81001; 82550; 85025; 86141; 87086; 96365; 96372; G0378; J0696; J1650; J7030